=== PATIENT | female | born 1935 | race Caucasian/White ===

== ENCOUNTER 2016-11-23 16:53 | Inpatient (IN) ==
--- NOTE | 2016-11-23 17:48 | Emergency Department Note ---
Disposition Clinical Impression: Fracture of femur Qualifiers: Encounter type: initial encounter Femur location: neck Fracture type: closed Laterality: left Qualified Code(s): S72.002A - Fracture of unspecified part of neck of left femur, initial encounter for closed fracture Anemia Qualifiers: Anemia type: unspecified type Qualified Code(s): D64.9 - Anemia, unspecified GI bleed Qualifiers: GI bleed type/associated pathology: unspecified gastrointestinal hemorrhage type Qualified Code(s): K92.2 - Gastrointestinal hemorrhage, unspecified Disposition: Admitted As Inpatient Condition: Good Time of Disposition: 20:48 General Adult HPI - General Chief complaint: ED Extremity Injury, Lower Stated complaint: Hip Fracture Time Seen by Provider: 11/23/16 17:09 Source: family (DAUGHTER, POA), EMS Mode of arrival: EMS Limitations: no limitations Nursing Notes Reviewed: Yes Vital Signs Reviewed: Yes - History of Present Illness HPI Narrative: 80-year-old female history of Vulvar cancer s/p radiation (finished in Sep 2015 at [facility]), hypertension, diabetes, atrial fibrillation on coumadin presents to the ED with left hip fracture. She is a hospice patient as of 3 weeks ago, resides in a fdc. Her daughter is at bedside who is her POA. Patient reportedly fell in the afternoon yesterday. She denies hitting her head and denies any loss of consciousness however she cannot recall the entire event to me. She was helped up by nursing staff and was imaged earlier today at 8 o' clock review of the left hip fracture in the inter trochanteric region. Patient has required more oxycodone than usual for her pain. She reportedly is acting more confused than usual family reports. Alert and oriented to only person. Denies any other physical complaints. Pain Scale: 7 - Related Data Previous Rx's Medication Instructions Recorded Meclizine [Antivert] 12.5 mg PO TID #20 tablet 10/12/15 Allergies Allergy/AdvReac Type Severity Reaction Status Date / Time nifedipine [From Procardia] Allergy See Verified 07/14/16 10:44 Comments All systems ED: reviewed and negative except as stated. Constitutional: Denies: fever, chills Cardiovascular: Denies: chest pain Respiratory: Denies: dyspnea Gastrointestinal: Denies: abdominal pain Genitourinary: Denies: urgency, dysuria Integumentary: Denies: rash, abrasion Past Medical History - Past Medical History Attestation: Yes The following information was validated with the patient. Source: patient Medical history: Reports: CHF, COPD, dementia, diabetes, hyperlipidemia, hypertension Psychiatric history: Reports: no psych history - Social History Smoking Status: Former smoker Smokeless Tobacco Status: No Alcohol use: Reports: none Drug use: Reports: none Physical Exam - General Limitations: no limitations General appearance: alert, in no apparent distress - Head Head exam: atraumatic, normocephalic, normal inspection - Expanded Head Exam Head exam physicial: Absent: contusion, hematoma - Chest Chest inspection: Present: normal inspection, symmetric chest wall rise - Respiratory Respiratory exam: Present: normal lung sounds bilaterally. Absent: respiratory distress, wheezes - Cardiovascular Cardiovascular exam: Present: regular rate, irregular rhythm, normal heart sounds. Absent: systolic murmur, diastolic murmur - Abdominal Exam Abdominal exam: Present: soft, Non-Tender, normal bowel sounds. Absent: tenderness, distention, guarding, rebound, rigidity - Rectal Exam Lead Injection Mold Technician present during exam: Yes Rectal exam: Present: normal rectal tone, heme (+) stool, bloody stool, other ( rectal exam performed frogged legged due to comfort, no visual inspection) - Expanded Lower Extremity Exam Hip/Pelvis exam: Present: tenderness (Left hip), internal rotation. Absent: normal inspection, full ROM, swelling, deformity, dislocation Upper leg exam: Present: normal inspection, full ROM. Absent: tenderness, swelling Knee exam: Present: normal inspection, other (Limited range of motion). Absent : full ROM, tenderness, swelling Lower leg exam: Present: normal inspection, full ROM. Absent: tenderness, swelling Ankle exam: Present: normal inspection, full ROM Foot/toe exam: Present: normal inspection, full ROM Neurovascular/Tendon exam: Present: normal capillary refill. Absent: pulse deficit, motor deficit, sensory deficit, tendon deficit - Neurological Exam Neurological exam: Present: alert, oriented X3, CN II-XII intact - Expanded Neurological Exam Patient oriented to: Present: person. Absent: place ([facility]), time ( Unable to guess year or day, Objodi is president) Speech: Present: fluid speech Cranial nerves: EOM function (II, III, IV, ): Normal, facial sensation (V): Normal, facial palsy (VII): Normal, gag reflex (IX): Normal, spinal accessory function (XI): Normal, tongue deviation (XII): Normal Motor strength - LUE: 5/5 Motor strength - RUE: 5/5 Motor strength - LLE: 3/5 (Difficult to assess due to pain) Motor strength - RLE: 4/5 Upper motor neuron exam: rolando neglect: Absent bilaterally Sensory exam upper extremity: light touch: Normal Sensory exam lower extremity: light touch: Normal - Psychiatric Psychiatric exam: Present: normal affect, normal mood - Skin Skin exam: Present: warm, dry, intact, normal color Course Course Narrative: 80-year-old female fdc resident currently on hospice presents to the ED with a left hip fracture and confusion. Patiently reportedly fell last night at her fdc residents complain of left hip pain. She was imaged earlier today which revealed a left intertrochanteric hip fracture. She is also on Coumadin for atrial fibrillation. Patients only alert and oriented to person. This appears near baseline per family. Her left leg is internally rotated with tenderness at the hip. She is neurovascularly intact. Daughter who is the POA would like to weigh their options on possible surgery and have her further evaluated. Due to her altered mental status will get a CT of the head basic labs including urine. We will get images of the pelvis and left femur for any occult fractures due to limited exam. Her blood pressure is 100/ 60. Fentanyl for pain. Patient and family are in agreement with plan. - Reevaluation(s) Reevaluation #1: CT head does not reveal any hemorrhagic stroke. She has an acute nondisplaced intratrochanteric left femoral neck fracture with suspected subtrochanteric extension. Her hemoglobin is lower than baseline at 9.4. Unfortunately at this time hospital phones are not working. Awaiting orthopedic surgeon machine precision etcher for consult. Time: 19:57 Reevaluation #2: Her daughter Shara is the POA and is in agreement with the plan for admission. Will admit for pain control and left femoral neck fracture. Time: 20:35 Reevaluation #3: Stool was brown with blood, it was not hematochezia. Hemoccult test will likely be positive. Type and screen pending and fluids ordered. Impression is left femoral neck femoral and GI bleed anemia. Time: 21:10 - Consultations Consultation #1: Spoke with Dr. Cordoba, he reports in a normal ambulatory patient this is a surgical procedure, with her hospice and DNRCCA it is not so clear cut. He agrees that we should admit and discuss her options and manage her pain currently as medical as surgery would not change her prognostic outcome but certainly will aide in comfort care. Time: 20:16 Consultation #2: Spoke with on-call hospitalist randal Avila to admit for left femoral neck fracture. Requests a type and screen and hemoccult test. Time: 20:51 Vital Signs Temperature 99.2 F 11/23/16 16:56 Pulse Rate 67 11/23/16 16:56 Respiratory Rate 16 11/23/16 16:56 Blood Pressure 105/68 11/23/16 16:56 O2 Sat by Pulse Oximetry 99 11/23/16 16:56 Temperature 99.2 F 11/23/16 16:56 Pulse Rate 83 11/23/16 19:01 Respiratory Rate 18 11/23/16 19:01 Blood Pressure 98/59 11/23/16 19:01 O2 Sat by Pulse Oximetry 98 11/23/16 19:01 Oxygen Delivery Oxygen Delivery Room Air Medical Decision Making - Medical Records Medical records reviewed: Yes I reviewed the patient's medical records. - Lab Data Lab results reviewed: Yes I reviewed the patient's lab results. Result diagrams: 11/23/16 18:45 11/23/16 18:45 Lab Results 11/23/16 11/23/16 11/23/16 Range/Units 18:45 18:45 18:45 WBC 8.1 (4.3-11.1) K/mcL RBC 3.20 L (3.82-4.97) M/mcL Hgb 9.4 L (11.5-15.4) g/dL Hct 30.5 L (35.3-44.9) % MCV 95.3 (83.0-100.0) fL MCH 29.4 (28.0-33.3) pg MCHC 30.8 L (31.6-35.5) g/dL RDW 14.8 H (11.5-14.5) % Plt Count 287 (140-400) K/mcL MPV 9.0 L (9.4-12.4) fL Immature Gran % 0.5 (0-4) % Seg Neutrophils % 65.2 % Lymphocytes % 22.4 % Monocytes % 9.4 % Eosinophils % 2.1 % Basophils % 0.4 % Neutrophils # 5.3 (1.6-8.9) K/mcL Lymphocytes # 1.8 (0.6-4.6) K/mcL Monocytes # 0.8 (0.0-1.3) K/mcL Eosinophils # 0.2 (0.0-0.6) K/mcL Basophils # 0.0 (0.0-0.2) K/mcL PT 22.7 H (9.4-12.1) Seconds INR 2.1 APTT 30.6 (26.0-36.0) Seconds Sodium 138 (136-145) mEq/L Potassium 4.1 (3.5-4.5) mEq/L Chloride 102 (98-109) mEq/L Carbon Dioxide 31 H (19-29) mEq/L BUN 15 (7-20) mg/dL Creatinine 0.85 (0.57-1.11) mg/dL Est GFR ( Amer) > 60 (> 60) Est GFR (Non-Af Amer) > 60 (> 60) BUN/Creatinine Ratio 18 (6-26) Glucose 101 H (70-99) mg/dL Calculated Osmolality 287 (280-300) Calcium 8.3 L (8.6-10.8) mg/dL Total Bilirubin 0.5 (0.2-1.2) mg/dL Direct Bilirubin 0.3 (0.0-0.5) mg/dL Indirect Bilirubin 0.2 (0.0-1.2) mg/dL AST 18 (5-34) Units/L ALT 11 (0-55) Units/L Alkaline Phosphatase 77 (38-126) Units/L Troponin I (0-0.03) ng/mL Serum Total Protein 6.2 (6.0-8.3) g/dL Albumin 1.8 L (3.5-5.0) g/dL Globulin 4.4 H (2.4-3.5) g/dL Albumin/Globulin Ratio 0.4 L (1.1-2.2) Stool Occult Blood (Negative) 11/23/16 11/23/16 Range/Units 18:45 18:45 WBC (4.3-11.1) K/mcL RBC (3.82-4.97) M/mcL Hgb (11.5-15.4) g/dL Hct (35.3-44.9) % MCV (83.0-100.0) fL MCH (28.0-33.3) pg MCHC (31.6-35.5) g/dL RDW (11.5-14.5) % Plt Count (140-400) K/mcL MPV (9.4-12.4) fL Immature Gran % (0-4) % Seg Neutrophils % % Lymphocytes % % Monocytes % % Eosinophils % % Basophils % % Neutrophils # (1.6-8.9) K/mcL Lymphocytes # (0.6-4.6) K/mcL Monocytes # (0.0-1.3) K/mcL Eosinophils # (0.0-0.6) K/mcL Basophils # (0.0-0.2) K/mcL PT (9.4-12.1) Seconds INR APTT (26.0-36.0) Seconds Sodium (136-145) mEq/L Potassium (3.5-4.5) mEq/L Chloride (98-109) mEq/L Carbon Dioxide (19-29) mEq/L BUN (7-20) mg/dL Creatinine (0.57-1.11) mg/dL Est GFR ( Amer) (> 60) Est GFR (Non-Af Amer) (> 60) BUN/Creatinine Ratio (6-26) Glucose (70-99) mg/dL Calculated Osmolality (280-300) Calcium (8.6-10.8) mg/dL Total Bilirubin (0.2-1.2) mg/dL Direct Bilirubin (0.0-0.5) mg/dL Indirect Bilirubin (0.0-1.2) mg/dL AST (5-34) Units/L ALT (0-55) Units/L Alkaline Phosphatase (38-126) Units/L Troponin I 0.03 (0-0.03) ng/mL Serum Total Protein (6.0-8.3) g/dL Albumin (3.5-5.0) g/dL Globulin (2.4-3.5) g/dL Albumin/Globulin Ratio (1.1-2.2) Stool Occult Blood Positive A (Negative) - Radiology Data Radiology results reviewed: Yes I reviewed the patient's radiology results. Chest X-Ray 11/23/16 17:42 IMPRESSION: 1. Cardiomegaly and pulmonary venous congestion. D/ / Christian Hill MD / Christian Hill MD Interpreting Provider: Christian Hill MD Head CT 11/23/16 17:42 IMPRESSION: 1. No acute intracranial abnormality. 2. Stable diffuse parenchymal volume loss with moderate to severe chronic white matter microvascular ischemic changes. D/ / Jim Ball MD / Jim Ball MD Interpreting Provider: Jim Ball MD Femur X-Ray 11/23/16 17:43 IMPRESSION: 1. Acute nondisplaced intratrochanteric left femoral neck fracture with suspected subtrochanteric extension. 2. Osteopenia. D/ / Jim Ball MD / Jim Ball MD Interpreting Provider: Jim Ball MD Pelvis X-Ray 11/23/16 17:43 IMPRESSION: Mildly displaced left intratrochanteric fracture is likely present, although evaluation is limited by single view. A moderately displaced fragment is seen along the left lesser trochanter. Ill-defined lucency through the medial aspect of the left inferior pubic ramus. Consider further evaluation with CT to exclude fracture. D/ / 11/23/2016 18:29:58 Reji Ag MD / Светлана Gresham Interpreting Provider: Reji Ag MD - EKG Data EKG #1 EKG attestation: Yes I reviewed and interpreted this EKG. EKG results narrative: EKG performed 185 atrial fibrillation 63 bpm, no ST elevations or depressions, there are nonspecific T-wave changes. Compared to old EKG 10/12/2015 which appears similar and read as sinus bradycardia with first-degree AV block. Otherwise there are no acute ischemic changes.
[2016-11-23] MEDS ORDERED: *HR* FentaNYL (PF) 100 MCG/2 ML VIAL IVP ONE (17:50)
--- NOTE | 2016-11-23 18:11 | Emergency Department Note ---
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 80 yo female presnts with possible hip fracture. ON coumadin for Afib. DNR CCA. Unwitnessed fall yesterday. Unable to provide history regarding the symptoms. Daughter present in the ED who is POA. Daughter reports the patient has altered mental status compared to normal. Taking more pain medications than usual over the past couple days. Patient is anemic and had a guaiac positive rectal exam. Patient BP is stable at this time. She has not had further bowel movements. Head CT is negative for acute intracranial hemorrhage. Patient does have a left intertrochanteric hip fracture. Resident spoke with Dr. Cordoba who recommended the patient be admitted to the hospital and he will evaluate for possible surgery in the morning.
[2016-11-23 18:52] LABS: Basophils % 0.4 %; Eosinophils # 0.2 K/mcL (0.0-0.6); Eosinophils % 2.1 %; Hematocrit 30.5 % (35.3-44.9); Hemoglobin 9.4 g/dL (11.5-15.4); Immature Granulocytes % 0.5 % (0-4); Lymphocytes # 1.8 K/mcL (0.6-4.6); Lymphocytes % 22.4 %; Mean Corpuscular HGB Conc 30.8 g/dL (31.6-35.5); Mean Corpuscular Hemoglobin 29.4 pg (28.0-33.3); Mean Corpuscular Volume 95.3 fL (83.0-100.0); Monocytes # 0.8 K/mcL (0.0-1.3); Monocytes % 9.4 %; Neutrophils # 5.3 K/mcL (1.6-8.9); Platelet Count 287 K/mcL (140-400); Red Cell Distribution Width 14.8 % (11.5-14.5); Segmented Neutrophils % 65.2 %
[2016-11-23 18:59] LABS: INR 2.1; Prothrombin Time 22.7 Seconds (9.4-12.1)
[2016-11-23 19:02] LABS: Activated Partial Thrombo Time 30.6 Seconds (26.0-36.0)
[2016-11-23 19:07] LABS: Alanine Aminotransferase 11 Units/L (0-55); Albumin/Globulin Ratio 0.4 (1.1-2.2); Alkaline Phosphatase 77 Units/L (38-126); Aspartate Amino Transferase 18 Units/L (5-34); BUN/Creatinine Ratio 18 (6-26); Bilirubin,Direct 0.3 mg/dL (0.0-0.5); Bilirubin,Indirect 0.2 mg/dL (0.0-1.2); Bilirubin,Total 0.5 mg/dL (0.2-1.2); Blood Urea Nitrogen 15 mg/dL (7-20); Calcium 8.3 mg/dL (8.6-10.8); Carbon Dioxide 31 mEq/L (19-29); Chloride 102 mEq/L (98-109); Globulin 4.4 g/dL (2.4-3.5); Glucose 101 mg/dL (70-99); Osmolality,Calculated 287 (280-300); Potassium 4.1 mEq/L (3.5-4.5); Sodium 138 mEq/L (136-145); Total Protein 6.2 g/dL (6.0-8.3); eGFR For African Americans > 60 (> 60); eGFR For Non-African Americans > 60 (> 60)
[2016-11-23 19:11] LABS: Albumin 1.8 g/dL (3.5-5.0)
[2016-11-23] MEDS ORDERED: 0.9 % Sodium Chloride 1,000 ML IVC ONE (21:10)
[2016-11-23] MEDS ORDERED: Ipratropium/Albuterol Neb 3 ML IH PRN (23:04)
[2016-11-23] MEDS ORDERED: Bisacodyl 10 MG RECTAL SUPPOSITORY RC PRN (23:04)
[2016-11-23] MEDS ORDERED: Dextrose Gel 15 GM PO PRN ×2 (23:11)
[2016-11-23] MEDS ORDERED: Naloxone 0.4 MG/ML INJ IVP PRN (23:11)
[2016-11-23] MEDS ORDERED: D5% in Water 1,000 ML IV PRN (23:11)
[2016-11-23] MEDS ORDERED: Acetaminophen 325 MG TABLET PO PRN (23:11)
[2016-11-23] MEDS ORDERED: 0.9 % Sodium Chloride 1,000 ML IVC SCH (23:15)
--- NOTE | 2016-11-23 23:52 | Internal Med History&Physical ---
Date of Encounter: 11/23/16 Time of Encounter: 23:00 Assessment and Plan (1) Closed intertrochanteric fracture of left femur Current visit: Yes Status: Acute . Qualifiers: Encounter type: initial encounter Qualified Code(s): S72.142A - Displaced intertrochanteric fracture of left femur, initial encounter for closed fracture (2) Chronic anticoagulation Current visit: Yes Status: Chronic . (3) Dementia arising in the senium and presenium Current visit: Yes Status: Chronic . (4) Acute on chronic alteration in mental status Current visit: Yes Status: Acute . (5) Unwitnessed fall Current visit: Yes Status: Acute . (6) Fracture of left inferior pubic ramus Current visit: Yes Status: Acute . Qualifiers: Encounter type: initial encounter Fracture type: closed Qualified Code(s) : S32.592A - Other specified fracture of left pubis, initial encounter for closed fracture (7) Anemia, chronic disease Current visit: Yes Status: Chronic . (8) Positive fecal occult blood test Current visit: Yes Status: Acute . (9) Protein-calorie malnutrition, severe Current visit: Yes Status: Chronic . (10) Cardiomyopathy Current visit: Yes Status: Chronic . Qualifiers: Cardiomyopathy type: unspecified Qualified Code(s): I42.9 - Cardiomyopathy , unspecified (11) Vulvar carcinoma Current visit: Yes Status: Chronic . (12) Chronic atrial fibrillation Current visit: Yes Status: Chronic . (13) HTN (hypertension) Current visit: Yes Status: Chronic . Qualifiers: Hypertension type: essential hypertension Qualified Code(s): I10 - Essential (primary) hypertension (14) HLD (hyperlipidemia) Current visit: Yes Status: Chronic . Qualifiers: Hyperlipidemia type: unspecified Qualified Code(s): E78.5 - Hyperlipidemia , unspecified (15) COPD (chronic obstructive pulmonary disease) Current visit: Yes Status: Chronic . Qualifiers: COPD type: unspecified COPD Qualified Code(s): J44.9 - Chronic obstructive pulmonary disease, unspecified (16) Dependence on continuous supplemental oxygen Current visit: Yes Status: Chronic . (17) BEAR (obstructive sleep apnea) Current visit: Yes Status: Chronic . (18) At risk for accident in home Current visit: Yes Status: Acute . (19) At risk for acid-base imbalance Current visit: Yes Status: Acute . (20) At risk for activity intolerance Current visit: Yes Status: Acute . (21) At risk for acute confusion Current visit: Yes Status: Acute . (22) At risk for acute ischemic cardiac event Current visit: Yes Status: Acute . (23) At risk for alteration in nutrition and elimination Current visit: Yes Status: Acute . (24) Morbid obesity with BMI of 40.0-44.9, adult Current visit: Yes Status: Chronic . (25) UTI (urinary tract infection) Current visit: Yes Status: Acute . Qualifiers: Urinary tract infection type: acute cystitis Hematuria presence: without hematuria Qualified Code(s): N30.00 - Acute cystitis without hematuria (26) Type 2 diabetes mellitus Current visit: Yes Status: Chronic . Qualifiers: Diabetes mellitus complication status: with unspecified complications Diabetes mellitus stone mason insulin use: unspecified stone mason insulin use status Qualified Code(s): E11.8 - Type 2 diabetes mellitus with unspecified complications (27) Hypothyroidism Current visit: Yes Status: Chronic . Qualifiers: Hypothyroidism type: acquired Qualified Code(s): E03.9 - Hypothyroidism, unspecified Internal Medicine - H&P: HPI Chief complaint: Mechanical fall. Acute hip pain. Confusion. Admitted From: Emergency Dept Plans for Post Hospital Care: Transfer Care Home Facility History of present illness: Ms. Hauser is a 80 year old female . She is currently on hospice patient as of 3 weeks and resides in a halfway. She presents following a mechanical fall where she sustained a left hip intratrochanteric fracture. The day prior to presentation. Reportedly fell in the afternoon. She did not suffer any head injury or loss of consciousness. He cannot have recalled the entirety of events. She was helped up by nursing staff and due to persistent complaints of pain in the limb is performed revealing the fracture. She is admitted to [facility] via the emergency department when she presents via EMS services in the company of family. Due to the injury she has required more oxycodone than her usual for management of her cancer-related pain. As a consequence family had found her acting more confused than is her baseline. The patient's history is significant for vulvar carcinoma status post radiation therapy completed at the [facility] at [facility]. Preliminary impressions suggest indeed intratrochanteric fracture of the left hip. The patient is also on chronic anticoagulation with warfarin for atrial fibrillation. Hemoccult stool analysis returned positive at admission. Screening studies revealed a mild anemia with a hemoglobin of 9.4 indices suggesting associated iron deficiency. Lempjvwz-mp-afifwi protein caloric malnutrition with albumin of 1.8 is noted electrolytes are benign except for mild azotemia. Vital signs revealed a low-grade temperature 99.2 and mild hypotension at 98/59 mmHg. Given her frailty, her family members(daughter as POA) site account for weighing of management options. Will be facilitated to their satisfaction. Specialist in orthopedic surgery has been apprised of the patient's circumstances and special needs. Workup and treatment will progress comprehensively. The patient was visited and interviewed and examined. Cumulative laboratory and radiographic data base was considered and discussed. Pertinent ancillary medical records including ECW and PCI documentation was reviewed and considered. Given the patient's presenting concerns, past medical history, clinical findings and symptoms, she is admitted at this time will undergo further evaluation and disposition. Orders were written as per the computerized physician order department supervisor system.......................................................................... .................... Consultative opinions will be sought as clinical circumstances justify. Pain management needs will be addressed. Laboratory and radiographic data base will be updated as appropriate. Studies include: Cultures of blood urine, pt/inr, aptt, UA, cardiac injury panel, BNP, metabolic/ hematologic panel, mag, phos, ionized donna, thyroid/ lipid profile, A1c, C-pep, CRP, sed rate, respiratory infection profile, respiratory virus panel, blood gas, lactic acid, dig level, iron studies, B12, folate, vit D panel , serologies, etc. Precautions: Aspiration, fall, delirium protocol/surveillance initiated. Telemetry with continuous hemodynamic monitoring and pulse oximetry initiated. Orthostatic vital signs. Empiric antibiotic coverage: Intravenous Rocephin pending culture data. Special studies: CT head, femur x-ray, pelvis x-ray, chest x-ray, telemetry, EKG. Pulmonary toilet: Incentive spirometry, aerosol bronchodilator, mucolytic, antitussive, supplemental oxygen. Corticosteroid therapyPRN. CPAP/BiPAP supplemental oxygen deliveryPRN. Aerosol Mucomyst therapyPRN. Fluid and electrolyte repletion efforts will proceed. Careful attention to fluid balance and renal recovery will be emphasized. Avoidance of nephrotoxic exposure and adverse drug drug interaction in the setting of impaired renal function will be monitored closely. Acute coronary syndrome protocol/surveillance initiated. Pharmacy to manage warfarin therapy (goal INR 2-3). DVT and PUD prophylaxis initiated: PPI therapy, intermittent pneumatic cuffs. Early ambulation will be encouraged as circumstances prevent. Immunization updates recommended. Influenza and pneumococcal vaccinations as part of ongoing preventative healthcare recommendations strongly recommended. Smoking cessation counseling addressed. Patient is a former smoker per medical record. Advanced care directive discussion addressed. Patient does declare specific healthcare restrictions of record at this time as per POA. Cardiovascular risk appraisal and cardiovascular risk reduction efforts will be emphasized. Physical and occupational therapy consulted to evaluate patient's functional capacity and progress mobility as her circumstances permit. Sliding scale insulin coverage, ADA dietary restraint and schedule an as-needed basis fingerstick glucose assessments were initiated. Nutrition/diabetes education counseling may be considered as circumstances justify. Outpatient medication schedules will be reviewed, confirmed and facilitated as appropriate. Reconciliation of home treatments including adjustments, substitutions and reintroduction into the treatment regimen will address necessary maintenance therapies for chronic pre-existing medical conditions. Plan of care has been reviewed and discussed in detail with the patient's family /POA. Questions addressed. Hospital course dictated by clinical findings, treatment response and potential consultative interventions. Patient is at risk for further acute clinical decline and morbidity due to her age, presenting chief complaints and comorbid conditions. Condition is serious. Prognosis is guarded. CODE STATUS is DNR comfort care arrest. Past Med Surg Social Fam HX - Past Medical History Source: old records reviewed Medical history: arthritis, atrial fibrillation, cancer, CHF (LVEF 30-40%.), COPD (BEAR. Continuous O2 supplementation.), dementia, diabetes, GERD, GI bleed, hyperlipidemia, hypertension, malignancy (Vulvar Ca s/p radiation tx.), osteoporosis, renal disease, thyroid disease, other (anemia of chronic illness.) Psychiatric history: no psych history, other - Past Surgical History Surgical History: cholecystectomy, hysterectomy, GISSEL/BSO, other (Nephrectomy. Colonoscopy. EGD.) - Social History Smoking Status: Former smoker Smokeless Tobacco Status: No Alcohol use: none Drug use: none Occupational status: retired Current [facility] situation: [facility] Activity Level: Mostly sedentary Recent Out of Country Travel Within the Last 8 Weeks: No Exposure or Possible Exposure to Illness During Travel: No - Family History Mother Living Status: Hx Family Cardiac Disorders: Yes Hx Family Respiratory Disorders: Yes Hx Family Cancer: Yes Hx Family Medical Disorders: Yes Internal Medicine - H&P: Meds Bisacodyl [Dulcolax] 10 mg RC WE 11/23/16 [History] Digoxin [Lanoxin] 0.125 mg PO DAILY 11/23/16 [History] Diltiazem CD (24hr) [Cardizem CD] 180 mg PO DAILY 11/23/16 [History] Docusate [Colace] 100 mg PO BID 11/23/16 [History] Furosemide [Lasix] 80 mg PO DAILY 11/23/16 [History] Insulin Degludec [Tresiba Flextouch U-100] 10 unit SQ DAILY 11/23/16 [History] Insulin Human Regular [HumuLIN R] 2 - 14 unit SQ TID 11/23/16 [History] Ipratropium/Albuterol Neb [Duoneb] 3 ml IH Q6HR PRN 11/23/16 [History] Levothyroxine [Synthroid] 25 mcg PO DAILY 11/23/16 [History] Oxycodone HCl 10 mg PO QID PRN 11/23/16 [History] Pantoprazole Sodium [Protonix] 40 mg PO DAILY 11/23/16 [History] Potassium Chloride [K-Tab ER] 20 meq PO DAILY 11/23/16 [History] Silver Sulfadiazine Cream [Silvadene] 1 appl TP TID 11/23/16 [History] Warfarin [Coumadin] 3 mg PO HS 11/23/16 [History] Allergies nifedipine [From Procardia] Allergy (Verified 07/14/16 10:44) See Comments ROS unobtainable: due to mental status All Systems PM: A 10-system review of systems was performed and is negative for pertinent findings except as documented above in the HPI. The patient presents encephalopathic due to underlying medical condition. She is a non-historian of circumstances and events. Details are collected from medical records, EMS triage, family member/POA at the bedside, and halfway staff. - Constitutional Constitutional: as per HPI - EENT Eyes: as per HPI Ears: as per HPI Nose, mouth and throat: as per HPI - Cardiovascular Cardiovascular ROS IM: as per HPI - Respiratory Respiratory: as per HPI - Gastrointestinal Gastrointestinal: as per HPI - Genitourinary Genitourinary: as per HPI - Musculoskeletal Musculoskeletal ROS IM: as per HPI - Integumentary Integumentary IM: as per HPI - Neurological Neurological ROS: as per HPI - Psychiatric Psychiatric: as per HPI - Endocrine Endocrine IM: as per HPI - Hematologic/Lymphatic Hematologic/Lymphatic: as per HPI - Allergic/Immunologic Allergic/Immunologic: as per HPI - Constitutional Vitals: Temp Pulse Resp BP Pulse Ox 99.2 F 83 18 98/59 98 11/23/16 16:56 11/23/16 19:01 11/23/16 19:01 11/23/16 19:01 11/23/16 19:01 Vital Signs Temp Pulse Resp BP Pulse Ox 11/23/16 19:01 83 18 98/59 98 11/23/16 16:56 99.2 F 67 16 105/68 99 Intake and Output 11/23/16 11/23/16 11/23/16 07:59 15:59 23:59 Other: Weight 117.934 kg Patient Weight 11/23/16 23:59 Weight 117.934 kg Allergies Allergy/AdvReac Type Severity Reaction Status Date / Time nifedipine [From Procardia] Allergy See Verified 07/14/16 10:44 Comments General appearance: Present: A&O X 1, mild distress. Absent: answers questions appropriately - Head Head exam: Present: atraumatic, normocephalic - Eye Eye exam: Present: EOMI, PERRL, conjuntiva pink, sclera anicteric Pupils: Present: normal accommodation, PERRL - ENT ENT exam: Present: mucous membranes moist, normal oropharynx - Neck Neck exam general surgery: Present: full ROM, supple, trachea midline. Absent: lymphadenopathy - Respiratory Respiratory exam: Present: decreased breath sounds, CTAB. Absent: accessory muscle use, rales, rhonchi, wheezes - Cardiovascular Cardiovascular exam: Present: distant heart sounds, RRR, +S1, +S2. Absent: diastolic murmur, gallop, rubs, systolic murmur - GI/Abdominal GI/Abdominal exam: Present: normal bowel sounds, soft, no peritoneal signs. Absent: distended, tenderness - Extremities Exam Extremities exam: Present: full ROM, warm, radial pulses palpable and symetrical. Absent: calf tenderness, cyanotic, pedal edema - Neurological Exam Neurological exam: Present: altered, CN II-XII intact, no focal deficits. Absent: oriented X3, pronater drift, facial droop, speech deficit - Psychiatric Psychiatric exam: Present: agitated, flat affect - Skin Skin exam: Present: dry, intact Internal Med - H&P Results - Labs CBC & Chem 7: 11/24/16 06:13 11/24/16 06:13 Labs: Short CBC 11/23/16 Range/Units 18:45 WBC 8.1 (4.3-11.1) K/mcL Hgb 9.4 L (11.5-15.4) g/dL Hct 30.5 L (35.3-44.9) % Plt Count 287 (140-400) K/mcL Neutrophils # 5.3 (1.6-8.9) K/mcL BMP 11/23/16 Range/Units 18:45 Sodium 138 (136-145) mEq/L Potassium 4.1 (3.5-4.5) mEq/L Chloride 102 (98-109) mEq/L Carbon Dioxide 31 H (19-29) mEq/L BUN 15 (7-20) mg/dL Creatinine 0.85 (0.57-1.11) mg/dL Glucose 101 H (70-99) mg/dL Calcium 8.3 L (8.6-10.8) mg/dL Cardiac Enzymes 11/23/16 Range/Units 18:45 Troponin I 0.03 (0-0.03) ng/mL Liver Function 11/23/16 Range/Units 18:45 Total Bilirubin 0.5 (0.2-1.2) mg/dL Direct Bilirubin 0.3 (0.0-0.5) mg/dL AST 18 (5-34) Units/L ALT 11 (0-55) Units/L Alkaline Phosphatase 77 (38-126) Units/L Albumin 1.8 L (3.5-5.0) g/dL Abnormal lab results RBC 3.20 M/mcL (3.82-4.97) L 11/23/16 18:45 Hgb 9.4 g/dL (11.5-15.4) L 11/23/16 18:45 Hct 30.5 % (35.3-44.9) L 11/23/16 18:45 MCHC 30.8 g/dL (31.6-35.5) L 11/23/16 18:45 RDW 14.8 % (11.5-14.5) H 11/23/16 18:45 MPV 9.0 fL (9.4-12.4) L 11/23/16 18:45 PT 22.7 Seconds (9.4-12.1) H 11/23/16 18:45 Carbon Dioxide 31 mEq/L (19-29) H 11/23/16 18:45 Glucose 101 mg/dL (70-99) H 11/23/16 18:45 Calcium 8.3 mg/dL (8.6-10.8) L 11/23/16 18:45 Albumin 1.8 g/dL (3.5-5.0) L 11/23/16 18:45 Globulin 4.4 g/dL (2.4-3.5) H 11/23/16 18:45 Albumin/Globulin Ratio 0.4 (1.1-2.2) L 11/23/16 18:45 Stool Occult Blood Positive (Negative) A 11/23/16 18:45 Laboratory Last Values WBC 8.1 K/mcL (4.3-11.1) 11/23/16 18:45 RBC 3.20 M/mcL (3.82-4.97) L 11/23/16 18:45 Hgb 9.4 g/dL (11.5-15.4) L 11/23/16 18:45 Hct 30.5 % (35.3-44.9) L 11/23/16 18:45 MCV 95.3 fL (83.0-100.0) 11/23/16 18:45 MCH 29.4 pg (28.0-33.3) 11/23/16 18:45 MCHC 30.8 g/dL (31.6-35.5) L 11/23/16 18:45 RDW 14.8 % (11.5-14.5) H 11/23/16 18:45 Plt Count 287 K/mcL (140-400) 11/23/16 18:45 MPV 9.0 fL (9.4-12.4) L 11/23/16 18:45 Immature Gran % 0.5 % (0-4) 11/23/16 18:45 Seg Neutrophils % 65.2 % 11/23/16 18:45 Lymphocytes % 22.4 % 11/23/16 18:45 Monocytes % 9.4 % 11/23/16 18:45 Eosinophils % 2.1 % 11/23/16 18:45 Basophils % 0.4 % 11/23/16 18:45 Neutrophils # 5.3 K/mcL (1.6-8.9) 11/23/16 18:45 Lymphocytes # 1.8 K/mcL (0.6-4.6) 11/23/16 18:45 Monocytes # 0.8 K/mcL (0.0-1.3) 11/23/16 18:45 Eosinophils # 0.2 K/mcL (0.0-0.6) 11/23/16 18:45 Basophils # 0.0 K/mcL (0.0-0.2) 11/23/16 18:45 PT 22.7 Seconds (9.4-12.1) H 11/23/16 18:45 INR 2.1 11/23/16 18:45 APTT 30.6 Seconds (26.0-36.0) 11/23/16 18:45 Sodium 138 mEq/L (136-145) 11/23/16 18:45 Potassium 4.1 mEq/L (3.5-4.5) 11/23/16 18:45 Chloride 102 mEq/L (98-109) 11/23/16 18:45 Carbon Dioxide 31 mEq/L (19-29) H 11/23/16 18:45 BUN 15 mg/dL (7-20) 11/23/16 18:45 Creatinine 0.85 mg/dL (0.57-1.11) 11/23/16 18:45 Est GFR ( Amer) > 60 (> 60) 11/23/16 18:45 Est GFR (Non-Af Amer) > 60 (> 60) 11/23/16 18:45 BUN/Creatinine Ratio 18 (6-26) 11/23/16 18:45 Glucose 101 mg/dL (70-99) H 11/23/16 18:45 Calculated Osmolality 287 (280-300) 11/23/16 18:45 Calcium 8.3 mg/dL (8.6-10.8) L 11/23/16 18:45 Total Bilirubin 0.5 mg/dL (0.2-1.2) 11/23/16 18:45 Direct Bilirubin 0.3 mg/dL (0.0-0.5) 11/23/16 18:45 Indirect Bilirubin 0.2 mg/dL (0.0-1.2) 11/23/16 18:45 AST 18 Units/L (5-34) 11/23/16 18:45 ALT 11 Units/L (0-55) 11/23/16 18:45 Alkaline Phosphatase 77 Units/L (38-126) 11/23/16 18:45 Troponin I 0.03 ng/mL (0-0.03) 11/23/16 18:45 Serum Total Protein 6.2 g/dL (6.0-8.3) 11/23/16 18:45 Albumin 1.8 g/dL (3.5-5.0) L 11/23/16 18:45 Globulin 4.4 g/dL (2.4-3.5) H 11/23/16 18:45 Albumin/Globulin Ratio 0.4 (1.1-2.2) L 11/23/16 18:45 Stool Occult Blood Positive (Negative) A 11/23/16 18:45 Blood Type A POSITIVE 11/23/16 18:45 Antibody Screen NEGATIVE 11/23/16 18:45 - Impressions Chest X-Ray 11/23/16 17:42 IMPRESSION: 1. Cardiomegaly and pulmonary venous congestion. D/ / Christian Hill MD / Christian Hill MD Interpreting Provider: Christian Hill MD Head CT 11/23/16 17:42 IMPRESSION: 1. No acute intracranial abnormality. 2. Stable diffuse parenchymal volume loss with moderate to severe chronic white matter microvascular ischemic changes. D/ / Jim Ball MD / Jim Ball MD Interpreting Provider: Jim Ball MD Femur X-Ray 11/23/16 17:43 IMPRESSION: 1. Acute nondisplaced intratrochanteric left femoral neck fracture with suspected subtrochanteric extension. 2. Osteopenia. D/ / Jim Ball MD / Jim Ball MD Interpreting Provider: Jim Ball MD Pelvis X-Ray 11/23/16 17:43 IMPRESSION: Mildly displaced left intratrochanteric fracture is likely present, although evaluation is limited by single view. A moderately displaced fragment is seen along the left lesser trochanter. Ill-defined lucency through the medial aspect of the left inferior pubic ramus. Consider further evaluation with CT to exclude fracture. D/ / 11/23/2016 18:29:58 Reji Ag MD / Севтлана Gresham Interpreting Provider: Reji Ag MD - Attending Attestation My signature below is to certify that this patient is under my care and that I, or nurse practitioner, or a physician's legal document assistant, or resident physician working with me, has had a [id number] encounter with this patient. All Active Problems (Last Updated 11/23/16 @ 21:42 by Jim Anton DO) Anemia (Acute) Fracture of femur (Acute) GI bleed (Acute) ED Activity Last Name: Murtaza Status: Admitted Observation Patient First Name: Danuta Priority: 3 Middle: Condition: Good Birthdate: 1935 Arrival Date/Time: 11/23/16 16:53 Age at Arrival: 80 Arrival Mode: Walk-In Sex: F Triaged At: 11/23/16 16:56 Language: Qatari Time Seen by Provider: 11/23/16 17:09 Stated Complaint: Hip Fracture Chief Complaint: ED Extremity Injury, Lower ED Location: [facility] ED Area: Station: Group: N ED Provider: Al Del Rosario ED Midlevel Provider: Jim Anton ED Nurse: Frieda David Primary Care Provider: Al Gonzales Other Provider: Parker Cordoba Status/Phase DtTm/Value User/Action Admitted Observation Patient 11/23/16 20:57:24 Daemon,Background Referrals (Provider) Al Gonzales Deleted 11/23/16 20:57:22 Ahsan Mcmanus Attending Provider Myranda Matos New Admitting Provider Natalya Quintero w/ Radiology 11/23/16 18:54:21 Jim Anton Referrals (Provider) Al Gonzales Added 11/23/16 18:17:19 Eran Stevens Primary Care Provider Al Gonzales Edit 11/23/16 18:10:01 Eran Stevens Primary Care Provider PCP NO New In Room 11/23/16 17:15:18 Frieda David Ed Nurse Frieda David New With Doctor 11/23/16 17:13:34 Al Del Rosario Ed Provider Al Del Rosario New With Midlevel 11/23/16 17:09:38 Jim Anton Midlevel Provider Jim Anton New In Room 11/23/16 16:53:36 Raul Hawkins Chief Complaint ED Extremity Injury, Lower New Stated Complaint Hip Fracture New Assessments and Treatments 12 lead ECG assessment Start: 11/23/16 17: 42 Freq: NOW Status: Complete Document 11/23/16 19:00 [facility] (Rec: 11/23/16 19:00 [id number]) EKG Time EKG Completed 18:59 EKG performed by EL Sloan EKG shown to and signed by Dr. Del Rosario Cardiac monitoring Start: 11/23/16 17: 42 Freq: .ONCE Status: Complete Document 11/23/16 19:01 [facility] (Rec: 11/23/16 19:01 [id number]) Cardiac Monitoring Heart Rate 79 Monitoring Method Telemetry Rhythm Sinus Rhythm Monitor Number ed 9 Strip placed in Chart No Monitor History Reviewed Yes Memory Cleared Yes ED Lower Extremity Injury Assessment Start: 11/23/16 16: 54 Freq: Status: Complete Document 11/23/16 16:59 JDA (Rec: 11/23/16 17:05 JDA [id number]) Extremity Injury, Lower Symptoms/Complaint Hip Injury Onset last night. Place Injury Occurred Long-Term/SNF Context Fall Improves With Nothing Worsens With Nothing Level Of Consciousness Awake Alert Appropriate Follows Commands Patient Orientation Person Place Time Patient Behavior Appropriate Ability to Follow Directions Fair Impaired Cognition Yes Respiratory Depth Normal ED Comment Pt presents from [facility] with C/O hip fracture post fall last night . Pt is on coumadin. Pt denies LOC with fall. ED Pain Assessment Start: 11/23/16 16: 54 Freq: Status: Active Document 11/23/16 19:02 [facility] (Rec: 11/23/16 19:03 [id number] Pain Assessment Left Hip Pain Description Ache Dull Intensity 10 Scale Used Numeric (1 - 10) Frequency Constant Indication of Pain Relief Verbalizes No Change in Pain Med Rec Tech Start: 11/23/16 22: 47 Freq: Status: Active Document 11/23/16 22:47 [facility] (Rec: 11/23/16 22:47 [facility] [id number]) Pharmacy Med Rec Tech Home Medicatons Reconciled? Yes Was this to catch up from previous day No Does patient take 10 or more medications Yes ? Does patient request medication No education Do home meds include Coumadin, Xarelto, Yes Pradaxa, Eliquis Added Patient Preferred Pharmacy Yes Verified Allergies Yes Would Patient Like to use [facility] No Patient Pharmacy NPO (Nursing Order) Start: 11/23/16 17: 42 Freq: NOW Status: Complete Document 11/23/16 19:01 [facility] (Rec: 11/23/16 19:01 [id number] Patient Rounding Start: 11/23/16 16: 54 Freq: Q30M Status: Active Document 11/23/16 16:59 JDA (Rec: 11/23/16 17:05 JDA [id number]) Patient Rounding Safety Call Light Within Reach Bed Position Low Bed Brake On Side Rails Up X2 Rounding Completed? Yes Patient Rounding Updated patient/family on Plan of Care Checked for Patient Positioning Patient Awake Document 11/23/16 19:01 [facility] (Rec: 11/23/16 19:02 [id number] Patient Rounding Safety Call Light Within Reach Bed Position Low Bed Brake On Side Rails Up X2 Are the Floors Free From Trip Hazards? Yes Is the Room Free From Clutter? Yes Rounding Completed? Yes Patient Rounding Updated patient/family on Plan of Care Checked Patient Pain Level Patient Awake Document 11/23/16 21:47 WDT (Rec: 11/23/16 21:48 WDT [id number]) Patient Rounding Safety Call Light Within Reach Bed Position Low Bed Brake On Side Rails Up X2 Are the Floors Free From Trip Hazards? Yes Is the Room Free From Clutter? Yes Patient Position Back Head of Bed Position (degrees) 35 Rounding Completed? Yes Patient Rounding Updated patient/family on Plan of Care Checked Patient Pain Level Patient Awake Patient Verbalizes Pain/Symptoms No Improvement Saline lock insertion/management Start: 11/23/16 17: 42 Freq: .ONCE Status: Active Document 11/23/16 19:08 JDA (Rec: 11/23/16 19:08 JDA [id number]) IV Insertion/Site Assessment IV Attempt 1 Successful Successful Blood drawn and sent to Lab No Left Hand Date of Insertion 11/23/16 Time of Insertion 19:08 Reason for IV Insertion Replace Lost Fluids Provide Access for IV Medication(s) Provide Access for Emergency IV Catheter Type Peripheral IV Gauge (gauge) 20 Site Observation Patent Dressing Applied Window Dressing Transparent Dressing Patient Tolerance Tolerated Well Triage Start: 11/23/16 16: 54 Freq: Status: Complete Document 11/23/16 16:56 JDA (Rec: 11/23/16 16:59 JDA [id number]) Triage Chief Complaint triage ED Extremity Injury, Lower Patient Stated Complaint Left hip fracture. KATELYNN 3 Onset (ago) day(s) Description of Symptoms Pt presents with C/O hip fracture to LLE that happened last night when pt fell. General Appearance in no apparent distress Work Related Injury? No Mode of arrival EMS Arrival via EMS [facility] Source EMS Ebola Risk: Travel/Contact With Anyone No From Affected Area/s Temperature (97.6 F-99.6 F) 99.2 F Temperature Source Oral Pulse Rate (beats/min) 67 Respiratory Rate (breaths/min) 16 Blood Pressure (mm Hg) 105/68 O2 Sat by Pulse Oximetry (95-100 %) 99 Oxygen Delivery Room Air Height 1.68 m Weight 117.934 kg Weight Measurement Method Estimated by Patient Pain Scale 7 Pain Scale Used Standard (1-10) Medical history CHF COPD dementia diabetes hyperlipidemia hypertension Female surgical history cholecystectomy hysterectomy other Additional surgical history PMH NEPHRECTOMY Psychiatric history no psych history Smoking Status Former smoker Smokeless Tobacco Status No Alcohol Use none Drug Use none Patient resides with/at [facility] Safety Concerns Feels Safe At This Time Do you currently feel hopless, have No thoughts of self harm, or thoughts of harming others History of fall in last 14 days? No Hx Now No Tetanus UTD unsure Vital Signs Assessment Start: 11/23/16 17: 42 Freq: PROTOCOL Status: Active Document 11/23/16 19:01 [facility] (Rec: 11/23/16 19:02 [facility] [id number]) ED Vital Signs Pain Reported Pain Reported Pain Scale 8 Pain Scale Used Standard (1-10) Blood Pressure (mm Hg) 98/59 Pulse Rate (beats/min) 83 Rhythm Regular Strength Normal Respiratory Rate (breaths/min) 18 Depth Normal Effort Normal for Patient Spontaneous Non-Labored Pattern Regular Pulse Oximetry (95-100 %) 98 Oxygen Delivery Room Air Discharge ED Provider: Al Del Rosario Status: Admitted Observation Patient Time Seen by Provider: 11/23/16 17:09 Condition: Good Triaged At: 11/23/16 16:56 Other ED Providers: Parker Cordoba Emergency Discharge Date/Time: Emergency Discharge Disposition: Admitted As Inpatient Clinical Impression Fracture of femur Anemia GI bleed Emergency Discharge Comment: Admit Intervention Last Done ED Lower Extremity Injury Assessment 11/23/16 16:59 Query Result Lower Extremity Injury Symptoms/ Hip Injury Complaint Lower Extremity Injury Onset last night. Place Fall Occurred Long-Term/SNF Lower Extremity Injury Context Fall Lower Extremity Injury Improves With Nothing Lower Extremity Injury Worsens With Nothing Level Of Consciousness Awake Alert Appropriate Follows Commands Patient Orientation Person Place Time Patient Behavior Appropriate Ability to Follow Directions Fair Impaired Cognition Yes Respiratory Depth Normal ED Comment Pt presents from [facility] with C/O hip fracture post fall last night . Pt is on coumadin. Pt denies LOC with fall. ED Discharge Assessment Observation Discharge Date/Time: Observation Discharge Disposition: Observation Discharge Comment: Instructions: Stand-Alone Forms: Prescriptions: Visit Report - Forms: - Referrals: Patient Problems (Last Updated 11/23/16 @ 21:42 by Jim Anton DO) Anemia (Acute Medical) D64.9 Fracture of femur (Acute Medical) S72.90XA GI bleed (Acute Medical) K92.2 Headache (Inactive Medical) Vaginal mass (Inactive Medical) N89.9 Vertigo (Inactive Medical)
[2016-11-24 04:41] LABS: Bilirubin,Urine Negative (Negative); Blood,Urine Trace (Negative); Clarity,Urine Cloudy (Clear); Color,Urine Yellow (Yellow); Glucose,Urine (UA) Normal (Normal); Ketones,Urine Negative (Negative); Leukocyte Esterase,Urine Large (Negative); Nitrite,Urine Positive (Negative); PH,Urine 6.5 pH Units (5.0-8.0); Protein,Urine Trace mg/dL (Neg-Trace); Urobilinogen,Urine Normal (Normal)
[2016-11-24 04:44] LABS: Bacteria,Urine Many per hpf (None-Few); Hyaline Casts,Urine None Seen per lpf (None-Few); Squamous Epithelial Cell,Urine Many per lpf (None-Few); WBC,Urine TNTC per hpf (0-3)
[2016-11-24 05:11] LABS: Hemoglobin A1C 4.7 %
[2016-11-24 06:47] LABS: Hematocrit 28.3 % (35.3-44.9); Hemoglobin 8.4 g/dL (11.5-15.4); Mean Corpuscular HGB Conc 29.7 g/dL (31.6-35.5); Mean Corpuscular Hemoglobin 28.2 pg (28.0-33.3); Mean Platelet Volume 9.3 fL (9.4-12.4); Platelet Count 245 K/mcL (140-400); Red Blood Count 2.98 M/mcL (3.82-4.97); Red Cell Distribution Width 14.7 % (11.5-14.5)
[2016-11-24 06:51] LABS: INR 1.8; Prothrombin Time 19.5 Seconds (9.4-12.1)
[2016-11-24 07:03] LABS: BUN/Creatinine Ratio 20 (6-26); Blood Urea Nitrogen 16 mg/dL (7-20); Carbon Dioxide 30 mEq/L (19-29); Chloride 103 mEq/L (98-109); Chol/HDL Ratio 2.6 (0-4.9); Cholesterol 90 mg/dL (< 200); Glucose 77 mg/dL (70-99); HDL Cholesterol 35 mg/dL (40-59); LDL Cholesterol,Calculated 38 mg/dL (0-99); Magnesium 1.4 mg/dL (1.6-2.6); Osmolality,Calculated 290 (280-300); Phosphorous 2.9 mg/dL (2.3-4.7); Potassium 3.6 mEq/L (3.5-4.5); Sodium 140 mEq/L (136-145); Triglycerides 87 mg/dL (< 150); eGFR For African Americans > 60 (> 60); eGFR For Non-African Americans > 60 (> 60)
[2016-11-24 07:19] LABS: Digoxin 1.4 ng/mL (0.8-2.0); Thyroid Stimulating Hormone 1.906 mcIU/mL (0.350-4.840)
[2016-11-24] MEDS: Insulin LISPRO 300 UNITS/3 ML VIAL SQ SCH ×4 (08:24→21:58)
[2016-11-24] MEDS: Levothyroxine 25 MCG TABLET PO SCH (08:27)
[2016-11-24] MEDS: *HR* Digoxin 0.125 MG TABLET PO SCH (08:27)
[2016-11-24] MEDS: Diltiazem CD (24hr) 180 MG CAPSULE PO SCH (08:27)
[2016-11-24] MEDS: Silver Sulfadiazine 50 GM TUBE TP SCH ×3 (08:28→22:07)
[2016-11-24] MEDS: *HR* HYDROmorphone (PF) 1 MG/ML SYRINGE IVP PRN ×3 (10:04→22:22)
[2016-11-24] MEDS: Ondansetron 4 MG/2 ML VIAL IVP PRN (13:02)
[2016-11-24] MEDS: 0.9 % Sodium Chloride 1,000 ML IVC SCH ×3 (13:07→17:15)
[2016-11-24] MEDS: *HR* OxyCODONE Immed Rel 5 MG TABLET PO PRN ×2 (14:11→18:38)
--- NOTE | 2016-11-24 15:54 | Internal Med Progress Note ---
Date of Encounter: 11/24/16 Time of Encounter: 15:52 - Assessment and plan (1) Chronic atrial fibrillation Current Visit: Yes Status: Acute Assessment and plan: She is currently anticoagulation. What I will do is get her anticoagulation reversed with a dose of vitamin K. I will anticipate that her INR should be below 1.5 tomorrow. 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 Not getting hip fracture might be quite painful. I will defer on the final pedicle on this to the surgeon. I did explain the prolonged immobilization as some of its issues and one of them is decubitus issues. She oriented some breakdown on the bottom because of radiation changes from her vulvar cancer. Qualifiers: Encounter type: initial encounter Femur location: neck Fracture type: closed Laterality: left Qualified Code(s): S72.002A - Fracture of unspecified part of neck of left femur, initial encounter for closed fracture - Subjective Interval history: Pain medication has been effective for controlling her pain. Daughter asked me my recommendations in regards to hip fracture. Despite that she is following a palliative care plan I told her that trying to manage an elderly lady of her size without fixing a hip would be very difficult if not near impossible. I also have the opinion that exam fractured hip of this nature goes long way to controlling pain and being palliative in its own way. - Constitutional Vitals: Temp Pulse Resp BP Pulse Ox 98.7 F 69 16 103/61 98 11/24/16 15:12 11/24/16 15:12 11/24/16 15:12 11/24/16 15:12 11/24/16 15:12 General appearance: Present: A&O X 1. Absent: answers questions appropriately - Respiratory Respiratory exam: Present: CTAB - Cardiovascular Cardiovascular exam: Present: irregular rhythm Internal Medicine: Result - Labs CBC & Chem 7: 11/24/16 06:13 11/24/16 06:13 Labs: Short CBC 11/24/16 Range/Units 06:13 WBC 6.5 (4.3-11.1) K/mcL Hgb 8.4 L (11.5-15.4) g/dL Hct 28.3 L (35.3-44.9) % Plt Count 245 (140-400) K/mcL BMP 11/24/16 06:13 Sodium 140 Potassium 3.6 Chloride 103 Carbon Dioxide 30 H BUN 16 Creatinine 0.81 Glucose 77 Calcium 8.0 L Urine 11/24/16 Range/Units 04:20 Urine Color Yellow (Yellow) Urine Clarity Cloudy A (Clear) Urine pH 6.5 (5.0-8.0) pH Units Ur Specific [place] 1.020 (1.010-1.025) Urine Protein Trace (Neg-Trace) mg/dL Urine Glucose (UA) Normal (Normal) mg/dL - ABG Interpretation ABG results: PT/INR, D-dimer PT 19.5 Seconds (9.4-12.1) H 11/24/16 06:13 Consult Discharge Plan - Plan Referrals: Al Gonzales MD [Primary Care Provider] -
[2016-11-24] MEDS ORDERED: *HR* Phytonadione 5 MG TABLET PO ONE (16:01)
--- NOTE | 2016-11-24 16:07 | Electrocardiograph Report ---
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
[2016-11-24] MEDS ORDERED: *HR* Warfarin 3 MG TABLET PO SCH (18:00)
[2016-11-24] MEDS ORDERED: Warfarin perPT PO PRN (18:00)
--- NOTE | 2016-11-24 20:35 | Orthopedic Consult Note ---
Date of Encounter: 11/24/16 Time of Encounter: 20:25 History of Present Illness Chief complaint: Left hip pain HPI: Ms. Hauser is a 80 year old female who sustained a left hip injury in a fall at a nursing facility approximately 48 hours ago. Patient has a significant medical history that is well documented in the medical record. In essence the patient has a vulvar carcinoma that has been treated with radiation with secondary radiation leon limiting treatment as well as one course of chemotherapy which has also been poorly tolerated. Patient has numerous other medical conditions including atrial fibrillation with chronic Coumadin anticoagulation. Patient has recently been started in a hospice program. In regards to the fall the patient had a mobile x-ray taken that revealed evidence of a fracture. Due to persistent pain she was transferred to [facility] for definitive evaluation and management. A left hip fracture was noted and she was admitted for further care of her left hip fracture. For complete history and physical data please refer the completed portion of the medical record. Orthopedic examination at this time reveals an obese elderly white female in minimal distress while lying in the hospital bed. She does have some edema in the left thigh. She has tenderness to palpation or compression of the upper thigh and left hip area. Neurosensory exam appears to be grossly intact. X-ray views are reviewed. This reveals a so minimally displaced intertrochanteric fracture of the left proximal femur. Laboratory data includes a hemoglobin of 8.4 with a white blood cell count of 6.5. Platelets are 245. PT today is 19.5 and INR 1.8. Current blood sugar is 173. Urinalysis is consistent with a urinary tract infection with a cloudy urine with positive nitrite large leukocyte esterase and many bacteria seen. Impression: Acute intertrochanteric fracture left proximal femur. Recommendation: Very long discussion with both patient and her daughter who has power of staff attorney. We discussed the fracture and knee treatment options available. This would include nonoperative or operative intervention. Nonoperative management would avoid the risk of surgery which is predominantly based upon the anesthesia component. This would put her at risk for further pulmonary or skin breakdown compromise. The other option would be to proceed with a intramedullary nailing of the left hip. I discussed that this is a relatively short and minimally invasive procedure but does put her at risk for the associated complications of the anesthetic component of her surgery. We discussed procedure in detail as well as potential risks and complications including but not limited to bleeding infection blood clots nerve injury stiffness malunion nonunion and leg length or rotational deformities. After much discussion the patient and the daughter feel that proceeding with surgical stabilization in the form of an intramedullary nailing is the best procedure for patient. This will allow her to be mobilized and avoid skin concerns as best as possible as well as helping to minimize pain. Informed consent has been signed. Would anticipate surgery in now 48 hours, this will allow time to her maximally medically prepared for surgery in light of her relatively high risk due to the multiple comorbidities. Thank you very much for allowing me to see and care for Mrs. Hauser. Sincerely, Parker Cordoba,DO Past Med Surg Social Fam HX - Past Medical History Medical history: arthritis, atrial fibrillation, cancer, CHF (LVEF 30-40%.), COPD (BEAR. Continuous O2 supplementation.), dementia, diabetes, GERD, GI bleed, hyperlipidemia, hypertension, malignancy (Vulvar Ca s/p radiation tx.), osteoporosis, renal disease, thyroid disease, other (anemia of chronic illness.) Psychiatric history: no psych history, other - Past Surgical History Surgical History: cholecystectomy, hysterectomy, GISSEL/BSO, other (Nephrectomy. Colonoscopy. EGD.) - Social History Smoking Status: Former smoker Smokeless Tobacco Status: No Alcohol use: none Drug use: none - Family History Mother Living Status: Hx Family Cardiac Disorders: Yes Hx Family Respiratory Disorders: Yes Hx Family Cancer: Yes Hx Family Medical Disorders: Yes Medications and Allergies Bisacodyl [Dulcolax] 10 mg RC WE 11/23/16 [History] Digoxin [Lanoxin] 0.125 mg PO DAILY 11/23/16 [History] Diltiazem CD (24hr) [Cardizem CD] 180 mg PO DAILY 11/23/16 [History] Docusate [Colace] 100 mg PO BID 11/23/16 [History] Furosemide [Lasix] 80 mg PO DAILY 11/23/16 [History] Insulin Degludec [Tresiba Flextouch U-100] 10 unit SQ DAILY 11/23/16 [History] Insulin Human Regular [HumuLIN R] 2 - 14 unit SQ TID 11/23/16 [History] Ipratropium/Albuterol Neb [Duoneb] 3 ml IH Q6HR PRN 11/23/16 [History] Levothyroxine [Synthroid] 25 mcg PO DAILY 11/23/16 [History] Oxycodone HCl 10 mg PO QID PRN 11/23/16 [History] Pantoprazole Sodium [Protonix] 40 mg PO DAILY 11/23/16 [History] Potassium Chloride [K-Tab ER] 20 meq PO DAILY 11/23/16 [History] Silver Sulfadiazine Cream [Silvadene] 1 appl TP TID 11/23/16 [History] Warfarin [Coumadin] 3 mg PO HS 11/23/16 [History] Allergies nifedipine [From Procardia] Allergy (Verified 07/14/16 10:44) See Comments All Systems Reviewed: A 10-system review of systems was performed and is negative for pertinent findings except as documented above in the HPI. Physical Exam - Constitutional Vitals: Temp Pulse Resp BP Pulse Ox 98.7 F 69 16 103/61 98 11/24/16 15:12 11/24/16 15:12 11/24/16 15:12 11/24/16 15:12 11/24/16 15:12 Results - Labs Result Diagrams: 11/24/16 06:13 11/24/16 06:13 Labs: Abnormal lab results RBC 2.98 M/mcL (3.82-4.97) L 11/24/16 06:13 Hgb 8.4 g/dL (11.5-15.4) L 11/24/16 06:13 Hct 28.3 % (35.3-44.9) L 11/24/16 06:13 MCHC 29.7 g/dL (31.6-35.5) L 11/24/16 06:13 RDW 14.7 % (11.5-14.5) H 11/24/16 06:13 MPV 9.3 fL (9.4-12.4) L 11/24/16 06:13 PT 19.5 Seconds (9.4-12.1) H 11/24/16 06:13 Carbon Dioxide 30 mEq/L (19-29) H 11/24/16 06:13 POC Glucose 173 (58-89) H 11/24/16 16:33 Calcium 8.0 mg/dL (8.6-10.8) L 11/24/16 06:13 Magnesium 1.4 mg/dL (1.6-2.6) L 11/24/16 06:13 B-Natriuretic Peptide 383 pg/mL (0-100) H 11/24/16 06:13 Albumin 1.8 g/dL (3.5-5.0) L 11/23/16 18:45 Globulin 4.4 g/dL (2.4-3.5) H 11/23/16 18:45 Albumin/Globulin Ratio 0.4 (1.1-2.2) L 11/23/16 18:45 HDL Cholesterol 35 mg/dL (40-59) L 11/24/16 06:13 Urine Clarity Cloudy (Clear) A 11/24/16 04:20 Urine Blood Trace (Negative) H 11/24/16 04:20 Urine Nitrite Positive (Negative) A 11/24/16 04:20 Ur Leukocyte Esterase Large (Negative) H 11/24/16 04:20 Urine Microscopic RBC 5-15 per hpf (0-3) H 11/24/16 04:20 Urine Microscopic WBC TNTC per hpf (0-3) H 11/24/16 04:20 Ur Squamous Epith Cells Many per lpf (None-Few) H 11/24/16 04:20 Urine Bacteria Many per hpf (None-Few) H 11/24/16 04:20 Ur Culture Indicated? YES (NO) A 11/24/16 04:20 Stool Occult Blood Positive (Negative) A 11/23/16 18:45 H & H 11/24/16 Range/Units 06:13 Hgb 8.4 L (11.5-15.4) g/dL Hct 28.3 L (35.3-44.9) % All other labs normal. Consult Discharge Plan - Plan Referrals: Al Gonzales MD [Primary Care Provider] -
[2016-11-24] MEDS: Insulin DETEMIR 100 UNIT/ML X5UNITS SQ SCH (22:07)
[2016-11-24] MEDS: Ascorbic Acid 500 MG TABLET PO SCH (22:07)
[2016-11-25] MEDS: *HR* HYDROmorphone (PF) 1 MG/ML SYRINGE IVP PRN ×3 (00:28→17:27)
[2016-11-25] MEDS: 0.9 % Sodium Chloride 1,000 ML IVC SCH (03:54)
[2016-11-25 06:57] LABS: Basophils % 0.4 %; Eosinophils # 0.1 K/mcL (0.0-0.6); Eosinophils % 0.9 %; Hematocrit 27.4 % (35.3-44.9); Hemoglobin 8.1 g/dL (11.5-15.4); Immature Granulocytes % 0.5 % (0-4); Lymphocytes # 0.7 K/mcL (0.6-4.6); Lymphocytes % 12.2 %; Mean Corpuscular HGB Conc 29.6 g/dL (31.6-35.5); Mean Corpuscular Hemoglobin 28.1 pg (28.0-33.3); Mean Corpuscular Volume 95.1 fL (83.0-100.0); Mean Platelet Volume 9.1 fL (9.4-12.4); Monocytes # 0.6 K/mcL (0.0-1.3); Monocytes % 11.1 %; Neutrophils # 4.1 K/mcL (1.6-8.9); Platelet Count 244 K/mcL (140-400); Red Blood Count 2.88 M/mcL (3.82-4.97); Red Cell Distribution Width 14.5 % (11.5-14.5); Segmented Neutrophils % 74.9 %
[2016-11-25 07:01] LABS: INR 1.3; Prothrombin Time 14.1 Seconds (9.4-12.1)
[2016-11-25 07:04] LABS: Activated Partial Thrombo Time 24.8 Seconds (26.0-36.0)
[2016-11-25 07:15] LABS: BUN/Creatinine Ratio 20 (6-26); Blood Urea Nitrogen 16 mg/dL (7-20); Carbon Dioxide 30 mEq/L (19-29); Chloride 103 mEq/L (98-109); Glucose 48 mg/dL (70-99); Osmolality,Calculated 284 (280-300); Potassium 3.8 mEq/L (3.5-4.5); Sodium 138 mEq/L (136-145); eGFR For African Americans > 60 (> 60); eGFR For Non-African Americans > 60 (> 60)
[2016-11-25 07:28] LABS: Calcium 8.6 mg/dL (8.6-10.8)
[2016-11-25] MEDS: Insulin LISPRO 300 UNITS/3 ML VIAL SQ SCH ×4 (07:51→22:22)
[2016-11-25] MEDS: *HR* Digoxin 0.125 MG TABLET PO SCH (08:43)
[2016-11-25] MEDS: Ascorbic Acid 500 MG TABLET PO SCH ×2 (08:43→22:24)
[2016-11-25] MEDS: Zinc Sulfate 220 MG CAPSULE PO SCH (08:43)
[2016-11-25] MEDS: Diltiazem CD (24hr) 180 MG CAPSULE PO SCH (08:43)
[2016-11-25] MEDS: Levothyroxine 25 MCG TABLET PO SCH (08:43)
[2016-11-25] MEDS: Silver Sulfadiazine 50 GM TUBE TP SCH ×3 (08:44→23:07)
[2016-11-25] MEDS ORDERED: Furosemide 40 MG TABLET PO SCH (09:00)
[2016-11-25] MEDS: *HR* Heparin 5,000 UNIT/ML VIAL SQ SCH ×2 (12:27→22:23)
[2016-11-25] MEDS: *HR* OxyCODONE Immed Rel 5 MG TABLET PO PRN (12:27)
--- NOTE | 2016-11-25 16:13 | Internal Med Progress Note ---
Date of Encounter: 11/25/16 Time of Encounter: 10:30 - Assessment and plan (1) Chronic atrial fibrillation Current Visit: Yes Status: Chronic (2) Unwitnessed fall Current Visit: Yes Status: Acute (3) Vulvar carcinoma Current Visit: Yes Status: Chronic (4) HTN (hypertension) Current Visit: Yes Status: Chronic Qualifiers: Hypertension type: essential hypertension Qualified Code(s): I10 - Essential (primary) hypertension (5) Type 2 diabetes mellitus Current Visit: Yes Status: Chronic Qualifiers: Diabetes mellitus complication status: with unspecified complications Diabetes mellitus long-term insulin use: unspecified long-term insulin use status Qualified Code(s): E11.8 - Type 2 diabetes mellitus with unspecified complications (6) Fracture of femur Current Visit: Yes Status: Acute Qualifiers: Encounter type: initial encounter Femur location: neck Fracture type: closed Laterality: left Qualified Code(s): S72.002A - Fracture of unspecified part of neck of left femur, initial encounter for closed fracture (7) COPD (chronic obstructive pulmonary disease) Current Visit: No Status: Chronic Qualifiers: Chronic bronchitis type: unspecified Qualified Code(s): J42 - Unspecified chronic bronchitis (8) Anemia Current Visit: Yes Status: Acute Qualifiers: Other causes of anemia: chronic disease, other Qualified Code(s): D63.8 - Anemia in other chronic diseases classified elsewhere (9) UTI (urinary tract infection) Current Visit: Yes Status: Acute Qualifiers: Urinary tract infection type: acute cystitis Hematuria presence: without hematuria Qualified Code(s): N30.00 - Acute cystitis without hematuria - Time Spent With Patient less than 15 minutes - Subjective Interval history: Pain medication has been effective for controlling her pain. She denies any shortness of breath. She states she is breathing fine. Pain is controlled if she sits still. - Constitutional Vitals: Temp Pulse Resp BP Pulse Ox 99.0 F 102 16 107/64 99 11/25/16 11:32 11/25/16 11:32 11/25/16 11:32 11/25/16 11:32 11/25/16 11:32 General appearance: Present: A&O X 1, mild distress. Absent: answers questions appropriately - Respiratory Respiratory exam: Present: CTAB. Absent: rhonchi, wheezes - Cardiovascular Cardiovascular exam: Present: irregular rhythm Internal Medicine: Result - Labs CBC & Chem 7: 11/25/16 06:40 11/25/16 06:40 Labs: Short CBC 11/25/16 Range/Units 06:40 WBC 5.5 (4.3-11.1) K/mcL Hgb 8.1 L (11.5-15.4) g/dL Hct 27.4 L (35.3-44.9) % Plt Count 244 (140-400) K/mcL Neutrophils # 4.1 (1.6-8.9) K/mcL BMP 11/25/16 06:40 Sodium 138 Potassium 3.8 Chloride 103 Carbon Dioxide 30 H BUN 16 Creatinine 0.82 Glucose 48 L Calcium 8.6 - ABG Interpretation ABG results: PT/INR, D-dimer PT 14.1 Seconds (9.4-12.1) H 11/25/16 06:40 Consult Discharge Plan - Plan Referrals: Al Gonzales MD [Primary Care Provider] -
--- NOTE | 2016-11-25 19:26 | Orthopedics Progress Note ---
Date of Encounter: 11/25/16 Time of Encounter: 19:24 Subjective Principal diagnosis: Intertrochanteric fracture left hip Interval history: 11/25/2016. Patient is seen in follow-up regarding her left hip fracture. Pain management has been good. Vital signs are stable. Patient is afebrile. Exam is unchanged. Hemoglobin is 8.1. Platelet count remains 244. PTT is 14.1 with an INR of 1.3. Urine culture is growing a gram-negative kristine. Patient has been on ceftriaxone. Impression: Intertrochanteric fracture left hip Plan: We will proceed with intramedullary nailing of her left hip tomorrow. Informed consent has been obtained. Preoperative orders have been written. Objective Vital signs: Vital Signs Temp Pulse Resp BP Pulse Ox 11/25/16 16:26 99.2 F 121 16 135/85 97 11/25/16 11:32 99.0 F 102 16 107/64 99 11/25/16 08:31 102/68 11/25/16 06:56 99.0 F 102 16 98/62 95 11/25/16 04:06 99.8 F H 77 20 94/56 95 11/24/16 23:55 99.7 F H 74 16 102/64 98 11/24/16 21:00 98.5 F 71 16 109/68 96 Intake and Output 11/25/16 11/25/16 11/25/16 07:59 15:59 23:59 Intake Total 1100 / 1100 Output Total 150 / 150 525 / 525 Balance 950 / 950 -525 / -525 Intake: IV Fluids 1100 / 1100 0.9 % Sodium Chloride 1, 1000 / 1000 000 ML @ 75 mls/hr IVC . [id number] [facility] Rx#: [id number] Rocephin 1,000 MG In 100 / 100 Dextrose 5% (Minibag+) 100 ML 100 ML @ 200 mls/ hr IVPB Q12HR [facility]BER Rx#: [id number] Output: Catheter 150 / 150 525 / 525 Other: Blood Glucose* 52 88 82 - Labs CBC & BMP: 11/25/16 06:40 11/25/16 06:40 Labs: Abnormal lab results RBC 2.88 M/mcL (3.82-4.97) L 11/25/16 06:40 Hgb 8.1 g/dL (11.5-15.4) L 11/25/16 06:40 Hct 27.4 % (35.3-44.9) L 11/25/16 06:40 MCHC 29.6 g/dL (31.6-35.5) L 11/25/16 06:40 MPV 9.1 fL (9.4-12.4) L 11/25/16 06:40 PT 14.1 Seconds (9.4-12.1) H 11/25/16 06:40 APTT 24.8 Seconds (26.0-36.0) L 11/25/16 06:40 Carbon Dioxide 30 mEq/L (19-29) H 11/25/16 06:40 Glucose 48 mg/dL (70-99) L 11/25/16 06:40 Magnesium 1.4 mg/dL (1.6-2.6) L 11/24/16 06:13 B-Natriuretic Peptide 383 pg/mL (0-100) H 11/24/16 06:13 Albumin 1.8 g/dL (3.5-5.0) L 11/23/16 18:45 Globulin 4.4 g/dL (2.4-3.5) H 11/23/16 18:45 Albumin/Globulin Ratio 0.4 (1.1-2.2) L 11/23/16 18:45 HDL Cholesterol 35 mg/dL (40-59) L 11/24/16 06:13 Urine Clarity Cloudy (Clear) A 11/24/16 04:20 Urine Blood Trace (Negative) H 11/24/16 04:20 Urine Nitrite Positive (Negative) A 11/24/16 04:20 Ur Leukocyte Esterase Large (Negative) H 11/24/16 04:20 Urine Microscopic RBC 5-15 per hpf (0-3) H 11/24/16 04:20 Urine Microscopic WBC TNTC per hpf (0-3) H 11/24/16 04:20 Ur Squamous Epith Cells Many per lpf (None-Few) H 11/24/16 04:20 Urine Bacteria Many per hpf (None-Few) H 11/24/16 04:20 Ur Culture Indicated? YES (NO) A 11/24/16 04:20 Stool Occult Blood Positive (Negative) A 11/23/16 18:45 Consult Discharge Plan - Plan Referrals: Al Gonzales MD [Primary Care Provider] -
[2016-11-25] MEDS: Insulin DETEMIR 100 UNIT/ML X5UNITS SQ SCH (22:23)
[2016-11-26 05:50] LABS: Basophils % 0.7 %; Eosinophils # 0.1 K/mcL (0.0-0.6); Eosinophils % 2.2 %; Hematocrit 29.8 % (35.3-44.9); Immature Granulocytes % 0.5 % (0-4); Lymphocytes % 23.6 %; Mean Corpuscular HGB Conc 30.2 g/dL (31.6-35.5); Mean Corpuscular Hemoglobin 28.4 pg (28.0-33.3); Mean Platelet Volume 9.2 fL (9.4-12.4); Monocytes # 0.5 K/mcL (0.0-1.3); Monocytes % 11.8 %; Neutrophils # 2.5 K/mcL (1.6-8.9); Platelet Count 294 K/mcL (140-400); Red Blood Count 3.17 M/mcL (3.82-4.97); Red Cell Distribution Width 14.4 % (11.5-14.5); Segmented Neutrophils % 61.2 %
[2016-11-26 05:53] LABS: INR 1.1; Prothrombin Time 12.2 Seconds (9.4-12.1)
[2016-11-26 05:56] LABS: Activated Partial Thrombo Time 28.7 Seconds (26.0-36.0)
[2016-11-26 06:04] LABS: BUN/Creatinine Ratio 18 (6-26); Blood Urea Nitrogen 14 mg/dL (7-20); Calcium 8.2 mg/dL (8.6-10.8); Carbon Dioxide 32 mEq/L (19-29); Chloride 102 mEq/L (98-109); Glucose 42 mg/dL (70-99); Osmolality,Calculated 289 (280-300); Potassium 3.6 mEq/L (3.5-4.5); Sodium 141 mEq/L (136-145); eGFR For African Americans > 60 (> 60); eGFR For Non-African Americans > 60 (> 60)
[2016-11-26] MEDS: 0.9 % Sodium Chloride 1,000 ML IVC SCH (07:01)
[2016-11-26] MEDS: *HR* Dextrose 50 % in Water (Syg) 50 ML SYRINGE IVP PRN ×2 (07:16→20:02)
[2016-11-26] MEDS: Insulin LISPRO 300 UNITS/3 ML VIAL SQ SCH ×4 (07:26→21:12)
--- NOTE | 2016-11-26 07:49 | Internal Med Progress Note ---
Date of Encounter: 11/26/16 Time of Encounter: 07:49 - Assessment and plan (1) Chronic atrial fibrillation Current Visit: Yes Status: Chronic Assessment and plan: She has had a bit of tachycardia. I am going to go ahead and give her 240 mg dose of Cardizem to get her heart rate low but better controlled (2) Unwitnessed fall Current Visit: Yes Status: Acute (3) Vulvar carcinoma Current Visit: Yes Status: Chronic (4) HTN (hypertension) Current Visit: Yes Status: Chronic Qualifiers: Hypertension type: essential hypertension Qualified Code(s): I10 - Essential (primary) hypertension (5) Type 2 diabetes mellitus Current Visit: Yes Status: Chronic Qualifiers: Diabetes mellitus complication status: with unspecified complications Diabetes mellitus continuous churn buttermaker insulin use: unspecified continuous churn buttermaker insulin use status Qualified Code(s): E11.8 - Type 2 diabetes mellitus with unspecified complications (6) Fracture of femur Current Visit: Yes Status: Acute Qualifiers: Encounter type: initial encounter Femur location: neck Fracture type: closed Laterality: left Qualified Code(s): S72.002A - Fracture of unspecified part of neck of left femur, initial encounter for closed fracture (7) COPD (chronic obstructive pulmonary disease) Current Visit: No Status: Chronic Qualifiers: Chronic bronchitis type: unspecified Qualified Code(s): J42 - Unspecified chronic bronchitis (8) Anemia Current Visit: Yes Status: Acute Qualifiers: Other causes of anemia: chronic disease, other Qualified Code(s): D63.8 - Anemia in other chronic diseases classified elsewhere (9) UTI (urinary tract infection) Current Visit: Yes Status: Acute Assessment and plan: Continues on Rocephin, her culture grew a Klebsiella that is sensitive to everything Qualifiers: Urinary tract infection type: acute cystitis Hematuria presence: without hematuria Qualified Code(s): N30.00 - Acute cystitis without hematuria (10) Hypoglycemia associated with type 2 diabetes mellitus Current Visit: Yes Status: Acute Assessment and plan: The hypoglycemia protocol has been enacted. She does arouse fairly easy. She denies of any complaints. We will continue some D 5 running. We will hold her morning dose of Levemir as she is nothing by mouth for surgery - Time Spent With Patient 25 - 35 minutes - Subjective Interval history: Pain medication has been effective for controlling her pain. She really denies any complaints. She did have an episode of low blood sugar today. On evaluation of her vitals her heart rate is running sometimes up to 110 and on rare occasions, has run 130 per staff. - Constitutional Vitals: Temp Pulse Resp BP Pulse Ox 98.6 F 112 16 134/77 100 11/26/16 07:42 11/26/16 07:42 11/26/16 07:42 11/26/16 07:42 11/26/16 07:43 General appearance: Present: A&O X 1, answers questions appropriately - Respiratory Respiratory exam: Present: CTAB - Cardiovascular Cardiovascular exam: Present: tachycardia (Alfredito tachycardia time of my exam she read any were between 100-110 bpm) Internal Medicine: Result - Labs CBC & Chem 7: 11/26/16 05:32 11/26/16 05:32 Labs: Short CBC 11/26/16 Range/Units 05:32 WBC 4.1 L (4.3-11.1) K/mcL Hgb 9.0 L (11.5-15.4) g/dL Hct 29.8 L (35.3-44.9) % Plt Count 294 (140-400) K/mcL Neutrophils # 2.5 (1.6-8.9) K/mcL BMP 11/26/16 05:32 Sodium 141 Potassium 3.6 Chloride 102 Carbon Dioxide 32 H BUN 14 Creatinine 0.79 Glucose 42 L Calcium 8.2 L - ABG Interpretation ABG results: PT/INR, D-dimer PT 12.2 Seconds (9.4-12.1) H 11/26/16 05:32 Consult Discharge Plan - Plan Referrals: Al Gonzales MD [Primary Care Provider] -
[2016-11-26] MEDS ORDERED: Diltiazem CD (24hr) 240 MG CAPSULE PO SCH (08:00)
[2016-11-26] MEDS ORDERED: D5% in 0.45% NACL w KCl 10 MEQ/1,000 ML MLS IVC SCH (08:00)
[2016-11-26] MEDS: *HR* Digoxin 0.125 MG TABLET PO SCH (08:25)
[2016-11-26] MEDS: Zinc Sulfate 220 MG CAPSULE PO SCH (08:25)
[2016-11-26] MEDS: Levothyroxine 25 MCG TABLET PO SCH (08:25)
[2016-11-26] MEDS: Ascorbic Acid 500 MG TABLET PO SCH ×2 (08:25→21:39)
[2016-11-26] MEDS: Silver Sulfadiazine 50 GM TUBE TP SCH ×4 (08:26→22:11)
[2016-11-26] MEDS: *HR* HYDROmorphone (PF) 1 MG/ML SYRINGE IVP PRN ×2 (08:52→12:16)
[2016-11-26] MEDS: Ondansetron 4 MG/2 ML VIAL IVP PRN (09:19)
--- NOTE | 2016-11-26 16:27 | Anesthesia Evaluation PreOp ---
Date of Encounter: 11/26/16 Time of Encounter: 16:25 - Past History Planned Operation: L-Hip IM Nailing Cardiac History: CHF (maintained on Lasix. BNP = 383 (elevated) this admission) , HTN, Hyperlipidemia, Arrhythmia (anticoagulated on Coumadin. Rate/rythym control w/ Diltiazem & Digoxin), Other (LVEF estimated 30-40% per current H&P. Last documented EHCO 08/2015 demonstrates LVEF 55%, No PulmHtn ,Moderate NABIL,) Pulmonary History: Former smoker, COPD (maintained on DuoNebs. 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 Acute on Chronic mental status at time of admission.) Other Medical History: Renal (UTI this admissionn), Diabetes Type II (well controlled w/HbA1c = 4.7, avg glucose = 88), Thyroid, Other (Closed intertrochanteric L-femur. Severe protein calorie malnutrition. Vulvar Carcinoma s/p radiation & 1 course of chemo [@ [facility] Pt unable to tolerate treatments (leon/illness) and pt is now palliative care.) Anesthesia History: No Prior Anesthetic Complications, Past Anesthesia (Mandy, Hyster, Nephrectomy, Colonoscopy) Alcohol Use: none Drug use: none Medications and Allergies Bisacodyl [Dulcolax] 10 mg RC WE 11/23/16 [History] Digoxin [Lanoxin] 0.125 mg PO DAILY 11/23/16 [History] Diltiazem CD (24hr) [Cardizem CD] 180 mg PO DAILY 11/23/16 [History] Docusate [Colace] 100 mg PO BID 11/23/16 [History] Furosemide [Lasix] 80 mg PO DAILY 11/23/16 [History] Insulin Degludec [Tresiba Flextouch U-100] 10 unit SQ DAILY 11/23/16 [History] Insulin Human Regular [HumuLIN R] 2 - 14 unit SQ TID 11/23/16 [History] Ipratropium/Albuterol Neb [Duoneb] 3 ml IH Q6HR PRN 11/23/16 [History] Levothyroxine [Synthroid] 25 mcg PO DAILY 11/23/16 [History] Oxycodone HCl 10 mg PO QID PRN 11/23/16 [History] Pantoprazole Sodium [Protonix] 40 mg PO DAILY 11/23/16 [History] Potassium Chloride [K-Tab ER] 20 meq PO DAILY 11/23/16 [History] Silver Sulfadiazine Cream [Silvadene] 1 appl TP TID 11/23/16 [History] Warfarin [Coumadin] 3 mg PO HS 11/23/16 [History] Allergies nifedipine [From Procardia] Allergy (Verified 07/14/16 10:44) See Comments - Meds/Allergy Pre-op Review Medications Reviewed: Yes Allergies Reviewed: Yes Beta Blockers on Current Med List: No Anesthesia Results - Labs 11/26/16 05:32 11/26/16 05:32 Laboratory Results Impressions Chest X-Ray 11/23/16 17:42 IMPRESSION: 1. Cardiomegaly and pulmonary venous congestion. D/ / Christian Hill MD / Christian Hill MD Interpreting Provider: Christian Hill MD Head CT 11/23/16 17:42 IMPRESSION: 1. No acute intracranial abnormality. 2. Stable diffuse parenchymal volume loss with moderate to severe chronic white matter microvascular ischemic changes. D/ / Jim Ball MD / Jim Ball MD Interpreting Provider: Jim Ball MD Femur X-Ray 11/23/16 17:43 IMPRESSION: 1. Acute nondisplaced intratrochanteric left femoral neck fracture with suspected subtrochanteric extension. 2. Osteopenia. D/ / Jim Ball MD / Jim Ball MD Interpreting Provider: Jim Ball MD Pelvis X-Ray 11/23/16 17:43 IMPRESSION: Mildly displaced left intratrochanteric fracture is likely present, although evaluation is limited by single view. A moderately displaced fragment is seen along the left lesser trochanter. Ill-defined lucency through the medial aspect of the left inferior pubic ramus. Consider further evaluation with CT to exclude fracture. D/ / 11/23/2016 18:29:58 Reji Ag MD / Светлана Gresham Interpreting Provider: Reji Ag MD - Imaging EKG: image reviewed (AFib 63bpm, Non-specific Twave abnormality) Anesthesia Exam Vital Signs Temp Pulse Resp BP Pulse Ox 11/26/16 10:07 98.5 F 104 16 129/78 95 11/26/16 08:37 100 11/26/16 07:43 100 11/26/16 07:42 98.6 F 112 16 134/77 100 11/26/16 06:31 98.5 F 107 16 128/76 95 11/26/16 05:04 98.7 F 116 18 126/79 99 11/26/16 00:40 98.9 F 98 16 128/70 98 11/25/16 22:50 96 11/25/16 19:31 98.2 F 114 18 126/68 96 Intake and Output 11/26/16 11/26/16 11/26/16 07:59 15:59 23:59 Intake Total 100 / 100 100 / 100 Output Total 550 / 550 650 / 650 Balance -450 / -450 -550 / -550 Intake: IV Fluids 100 / 100 100 / 100 0.9 % Sodium Chloride 1, 100 / 100 000 ML @ 75 mls/hr IVC . [id number] AMBER Rx#: [id number] Rocephin 1,000 MG In 100 / 100 Dextrose 5% (Minibag+) 100 ML 100 ML @ 200 mls/ hr IVPB Q12HR AMBER Rx#: [id number] Output: Urine 550 / 550 Catheter 650 / 650 Other: Blood Glucose* 89 75 90 Height: 5'6" Weight: 220# BMI = 36 NPO (# of Hours): MNoc - HEENT Pupil (Motor): Pupils equal, EOMI Mallampati: III Teeth: Edentulous Oral Opening: Greater than 3 - TETRYL SCREEN OPERATOR LOC: Oriented TETRYL SCREEN OPERATOR Motor: Normal RUE, Normal LUE, Normal RLE, Normal Face, Deficit LLE TETRYL SCREEN OPERATOR Sensory: Normal: RUE, LUE, RLE, Face, Deficit: LLE - Cardiac Rhythm: Irregular Murmur: Systolic JVD: No - Pulmonary Breath Sounds: bilateral Rales (faint expiratory wheezes on diminished breath sounds (body habitus)) Respiratory Effort: Symmetrical Anesthesia Assess/Plan ASA Score: 4 (CHF, COPD, HTN, CRI, Vulvar Ca, BEAR, O2 dependent) Modified Sergio Scale for Level of Consciousness: Cooperative, oriented, and tranquil Anesthetic Plan: General Monitoring Plan: Standard Monitors Recovery Plan: PACU Anes Supervising Prov Stmt: Pt seen/evaluated, R&B discussed, questions answered and consent obtained w/ Family-POA present. Chas France MD
[2016-11-26] MEDS ORDERED: Lidocaine -MPF 2% 2 ML VIAL ONE (17:07)
[2016-11-26] MEDS ORDERED: *HR* FentaNYL (PF) 100 MCG/2 ML VIAL ONE (17:07)
[2016-11-26] MEDS ORDERED: Ondansetron 4 MG/2 ML VIAL ONE (17:07)
[2016-11-26] MEDS ORDERED: *HR* Propofol 200 MG/20 ML VIAL IVP ONE (17:07)
[2016-11-26] MEDS ORDERED: *HR* Succinylcholine 200 MG/10 ML VIAL IVP ONE (17:07)
[2016-11-26] MEDS ORDERED: ceFAZolin 2,000 MG in D5% in Water 100 ML IVPB ONE (17:30)
[2016-11-26] MEDS ORDERED: *HR* Etomidate 40 MG/20 ML VIAL IVP ONE (17:56)
[2016-11-26] MEDS ORDERED: *HR* Morphine 10 MG/ML VIAL ONE (19:28)
[2016-11-26] MEDS ORDERED: *HR* HYDROmorphone 2 MG/ML SYRINGE ONE (19:45)
[2016-11-26] MEDS ORDERED: *HR* HYDROmorphone (PF) 1 MG/ML SYRINGE IVP PRN (20:10)
--- NOTE | 2016-11-26 20:16 | Operative Note ---
Date of procedure: 11/26/16 Pre-op diagnosis: Peritrochanteric fracture left proximal femur Post-op diagnosis: same Procedure: #1. Intramedullary nailing left hip #2. Fluoroscopic guidance for IM nailing left hip Implants: Synthes 11 mm x 170 mm x 130 degree angle TFNA, 95 mm x 11 mm helical blade and a 36 mm x 5.0 mm distal locking screw Complications: None Anesthesia: GETA Surgeon: Parker Cordoba Estimated blood loss (cc): 100 Specimen: None Condition: stable Disposition: PACU Procedure in Detail: Gross findings: Preoperative x-rays showed a somewhat complex comminuted fracture of the intertrochanteric region of the left proximal femur. His was manifested with a fracture line through the greater to the lesser trochanter with anterior displaced fragment and angulation. There is suspicion for a fracture line extending slightly lateral inferiorly. The fracture was stabilized with placement of a trochanteric femoral nail with fluoroscopic guidance and verification of fracture position and implant position. No complicating features were encountered. Procedure: Patient was taken the operating room and while in the hospital bed was administered general anesthesia. Patient was now transferred to the [facility] fracture table. Left lower extremity was placed longitudinal traction and the right lower extremity was positioned out of harm's way and the [facility] leg aguilar. At this time fluoroscopy was introduced and utilized to guide the initial reduction which was accomplished with a combination of traction, adduction and some external rotation. Once alignment was in appropriate position the left hip was prepped and draped in normal standard fashion for surgery. Incision was made above the level of the trochanter. Dissection was carried through the significant amount of subtendinous adipose tissue down level of the fascia which was split. The tip of the trochanter was palpated and now with fluoroscopic guidance in both AP and lateral planes guidewire was placed in the central position on the trochanter and passed down the femoral canal. The trochanter was then opened up with the large drill bit. The nail was then placed on the insertion jig passed over the guidewire and then passed down the femoral canal. Seated in appropriate position with fluoroscopic verification. At this time the helical blade guide was placed. Second incision was made and dissection was carefully subtendinous tissues down to the fascia and then the guide was used to place a pin in the central position in the head on both AP and lateral views. This was measured and a 95 mm helical blade was selected. Head and neck were then reamed. Helical blade was then placed and seated. Helical blade was locked from above. Fracture was compressed. The helical blade guide was then removed and the distal locking screw guide was used to drill and then placed the distal locking screw. Excellent position of the fracture and implant was verified with multiplane fluoroscopy. With implants in place attention was paid to closure. Wounds were irrigated and then closed with #1 Vicryl in the fascia followed by #1 Vicryl the deep septated tissue followed by 2-0 undyed Vicryl placed in an inverted interrupted manner and medius subtendinous layer. Skin was then closed with running septic stitch of 20 Quill. Skin glue was now applied. Once a glue had hardened operative foam was applied and secured. Patient was then transferred from the fracture table hospital bed, awakened and extubated and then transferred to the postanesthesia care unit in stable and satisfactory condition. All sponge and needle evidence correct. No specimens were sent for pathology.
--- NOTE | 2016-11-26 20:35 | Anesthesia Evaluation Post Op ---
Date of Encounter: 11/26/16 Time of Encounter: 20:34 - Vital Signs Vital Signs: Vital Signs/O2 Sat, Most Current Temp Pulse Resp BP Pulse Ox 97.2 F L 111 20 158/58 94 L 11/26/16 19:55 11/26/16 20:15 11/26/16 20:15 11/26/16 20:15 11/26/16 20:15 - Lungs Lungs: Clear Ascult./Percussion - Airway Airway: Non-obstructed - Cardiovascular Irregular Rate, Baseline Rhythm - Mental Status Mental Status: Alert & Oriented, Answers Appropriately - Pain Pain Scale: 0 Pain Scale used: Numeric (1 - 10) - Nausea Vomiting Nausea Vomiting: Not Present - Hydration Hydration: NPO, Boyd catheter - Discharge PostOp Status: Transfer Patient to floor
[2016-11-26] MEDS: *HR* OxyCODONE Immed Rel 5 MG TABLET PO PRN (21:39)
[2016-11-26] MEDS ORDERED: Bisacodyl 10 MG RECTAL SUPPOSITORY RC PRN (22:50)
[2016-11-26] MEDS ORDERED: Acetaminophen 325 MG TABLET PO PRN (22:50)
[2016-11-26] MEDS ORDERED: *HR* Dextrose 50 % in Water (Syg) 50 ML SYRINGE IVP PRN (22:50)
[2016-11-26] MEDS ORDERED: Dextrose Gel 15 GM PO PRN ×2 (22:50)
[2016-11-26] MEDS ORDERED: D5% in Water 1,000 ML IV PRN (22:50)
[2016-11-26] MEDS ORDERED: Naloxone 0.4 MG/ML INJ IVP PRN (22:50)
[2016-11-26] MEDS: D5% in 0.45% NACL w KCl 10 MEQ/1,000 ML MLS IVC SCH (23:56)
[2016-11-27] MEDS: ceFAZolin 2,000 MG in D5% in Water 100 ML IVPB SCH ×2 (00:41→11:32)
[2016-11-27 05:01] LABS: INR 1.1; Prothrombin Time 11.5 Seconds (9.4-12.1)
[2016-11-27 05:05] LABS: Activated Partial Thrombo Time 18.2 Seconds (26.0-36.0)
[2016-11-27 05:18] LABS: BUN/Creatinine Ratio 13 (6-26); Blood Urea Nitrogen 9 mg/dL (7-20); Calcium 8.3 mg/dL (8.6-10.8); Carbon Dioxide 28 mEq/L (19-29); Chloride 104 mEq/L (98-109); Glucose 91 mg/dL (70-99); Osmolality,Calculated 280 (280-300); Potassium 4.4 mEq/L (3.5-4.5); Sodium 136 mEq/L (136-145); eGFR For African Americans > 60 (> 60); eGFR For Non-African Americans > 60 (> 60)
[2016-11-27 06:29] LABS: Basophils % 0.4 %; Eosinophils # 0.1 K/mcL (0.0-0.6); Eosinophils % 2.9 %; Hematocrit 26.5 % (35.3-44.9); Hemoglobin 8.1 g/dL (11.5-15.4); Immature Granulocytes % 0.4 % (0-4); Immature Platelets 2.2 % (1.1-6.1); Lymphocytes # 1.4 K/mcL (0.6-4.6); Lymphocytes % 28.6 %; Mean Corpuscular HGB Conc 30.6 g/dL (31.6-35.5); Mean Corpuscular Hemoglobin 28.6 pg (28.0-33.3); Mean Corpuscular Volume 93.6 fL (83.0-100.0); Mean Platelet Volume 9.7 fL (9.4-12.4); Monocytes # 0.5 K/mcL (0.0-1.3); Monocytes % 9.8 %; Neutrophils # 2.8 K/mcL (1.6-8.9); Platelet Count 298 K/mcL (140-400); Red Blood Count 2.83 M/mcL (3.82-4.97); Red Cell Distribution Width 14.3 % (11.5-14.5); Segmented Neutrophils % 57.9 %
[2016-11-27] MEDS: Levothyroxine 25 MCG TABLET PO SCH (06:35)
[2016-11-27] MEDS: *HR* Enoxaparin 30 MG/0.3 ML SYRINGE SQ SCH ×2 (06:37→17:27)
[2016-11-27] MEDS: Insulin LISPRO 300 UNITS/3 ML VIAL SQ SCH ×3 (08:10→17:27)
[2016-11-27] MEDS: Zinc Sulfate 220 MG CAPSULE PO SCH (08:31)
[2016-11-27] MEDS: *HR* Digoxin 0.125 MG TABLET PO SCH (08:32)
[2016-11-27] MEDS: Furosemide 40 MG TABLET PO SCH (08:32)
[2016-11-27] MEDS: Diltiazem CD (24hr) 240 MG CAPSULE PO SCH (08:32)
[2016-11-27] MEDS: Ascorbic Acid 500 MG TABLET PO SCH ×2 (08:33→21:40)
[2016-11-27] MEDS: Silver Sulfadiazine 50 GM TUBE TP SCH ×3 (08:33→21:35)
[2016-11-27] MEDS ORDERED: Warfarin perPT PO PRN (10:29)
[2016-11-27] MEDS ORDERED: *HR* Digoxin 0.5 MG/2 ML AMPUL IVP ONE (11:46)
--- NOTE | 2016-11-27 11:48 | Internal Med Progress Note ---
Date of Encounter: 11/27/16 Time of Encounter: 11:46 - Assessment and plan (1) Fracture of femur Current Visit: Yes Status: Acute Assessment and plan: s/p surgery no complication Qualifiers: Encounter type: initial encounter Femur location: neck Fracture type: closed Laterality: left Qualified Code(s): S72.002A - Fracture of unspecified part of neck of left femur, initial encounter for closed fracture (2) Anemia Current Visit: Yes Status: Acute Assessment and plan: stable hgb Qualifiers: Anemia type: unspecified type Qualified Code(s): D64.9 - Anemia, unspecified (3) Closed intertrochanteric fracture of left femur Current Visit: Yes Status: Acute Assessment and plan: s/p surgery Qualifiers: Encounter type: initial encounter Qualified Code(s): S72.142A - Displaced intertrochanteric fracture of left femur, initial encounter for closed fracture (4) Chronic anticoagulation Current Visit: Yes Status: Chronic Assessment and plan: resumed coumadin (5) Dementia arising in the senium and presenium Current Visit: Yes Status: Chronic Assessment and plan: chronic (6) Anemia, chronic disease Current Visit: Yes Status: Chronic Assessment and plan: chronic (7) Vulvar carcinoma Current Visit: Yes Status: Chronic (8) HTN (hypertension) Current Visit: Yes Status: Chronic Assessment and plan: well controlled Qualifiers: Hypertension type: essential hypertension Qualified Code(s): I10 - Essential (primary) hypertension (9) HLD (hyperlipidemia) Current Visit: Yes Status: Chronic Qualifiers: Hyperlipidemia type: unspecified Qualified Code(s): E78.5 - Hyperlipidemia , unspecified (10) Type 2 diabetes mellitus Current Visit: Yes Status: Chronic Assessment and plan: on sliding scale Qualifiers: Diabetes mellitus complication status: with unspecified complications Diabetes mellitus longterm insulin use: unspecified longterm insulin use status Qualified Code(s): E11.8 - Type 2 diabetes mellitus with unspecified complications (11) COPD (chronic obstructive pulmonary disease) Current Visit: No Status: Chronic Qualifiers: COPD type: chronic bronchitis Chronic bronchitis type: unspecified Qualified Code(s): J42 - Unspecified chronic bronchitis - Subjective Interval history: patient with hiswtory of dementia, chronic atrial fib, valvular carcinoma diabetes admitted following fall sustaining left femur fracture s/p surgery yesterday doing well no complains today in atrial fib rate 108 asked nurse to give additional digoxin 0.25 mg iv - Constitutional Vitals: Temp Pulse Resp BP Pulse Ox 98.7 F 103 18 133/81 94 L 11/27/16 11:00 11/27/16 11:00 11/27/16 11:00 11/27/16 11:00 11/27/16 11:00 General appearance: Present: A&O X 1, answers questions appropriately - Eye Eye exam: Present: PERRL, conjuntiva pink, sclera anicteric Pupils: Present: PERRL - Neck Neck exam general surgery: Present: supple, trachea midline. Absent: lymphadenopathy - Respiratory Respiratory exam: Present: CTAB. Absent: accessory muscle use, rales, rhonchi, wheezes - Cardiovascular Cardiovascular exam: Present: irregular rhythm, RRR, +S1, +S2. Absent: diastolic murmur, gallop, rubs, systolic murmur Internal Medicine: Result - Labs CBC & Chem 7: 11/27/16 05:45 11/27/16 04:43 Labs: Short CBC 11/27/16 Range/Units 05:45 WBC 4.8 (4.3-11.1) K/mcL Hgb 8.1 L (11.5-15.4) g/dL Hct 26.5 L (35.3-44.9) % Plt Count 298 (140-400) K/mcL Neutrophils # 2.8 (1.6-8.9) K/mcL BMP 11/27/16 04:43 Sodium 136 Potassium 4.4 Chloride 104 Carbon Dioxide 28 BUN 9 Creatinine 0.71 Glucose 91 Calcium 8.3 L - ABG Interpretation ABG results: PT/INR, D-dimer PT 11.5 Seconds (9.4-12.1) 11/27/16 04:43 - Impressions Impressions Fluoroscopy 11/26/16 18:18 IMPRESSION: Intraprocedural fluoroscopic spot images as above. See separate procedure report for more information. D/ / 11/26/2016 19:48:53 Donald Montelongo MD / eartaras Interpreting Provider: Donald Montelongo MD Hip X-Ray 11/26/16 18:18 IMPRESSION: Intraprocedural fluoroscopic spot images as above. See separate procedure report for more information. D/ / 11/26/2016 19:48:53 Donald Montelongo MD / earnold Interpreting Provider: Donald Montelongo MD - VTE Documentation of Mechanical Device: Venous foot pump, device Consult Discharge Plan - Plan Referrals: Al Gonzales MD [Primary Care Provider] -
[2016-11-27] MEDS: *HR* OxyCODONE Immed Rel 5 MG TABLET PO PRN ×2 (12:20→21:40)
[2016-11-27] MEDS: Ondansetron 4 MG/2 ML VIAL IVP PRN (12:33)
--- NOTE | 2016-11-27 13:48 | Orthopedics Progress Note ---
Date of Encounter: 11/27/16 Time of Encounter: 13:46 Subjective Principal diagnosis: Intertrochanteric fracture left hip Interval history: 11/25/2016. Patient is seen in follow-up regarding her left hip fracture. Pain management has been good. Vital signs are stable. Patient is afebrile. Exam is unchanged. Hemoglobin is 8.1. Platelet count remains 244. PTT is 14.1 with an INR of 1.3. Urine culture is growing a gram-negative kristine. Patient has been on ceftriaxone. Impression: Intertrochanteric fracture left hip Plan: We will proceed with intramedullary nailing of her left hip tomorrow. Informed consent has been obtained. Preoperative orders have been written. 11/27/2016. Patient is postop day #1 from intramedullary nailing of her left hip. She is having less pain today than preop. Vital signs are stable. She does have a pulse of about 110. History of chronic A. fib. Afebrile. Dressings show only minor serous spotting. Leg is somewhat edematous. Hemoglobin is 8.1, stable. Platelet count normal. Impression: POD #1 IM nailing left hip, orthopedic status stable Recommendation: Can ambulate patient as tolerated. We will continue to monitor. health services information specialist for discharge planning process. Objective Vital signs: Vital Signs Temp Pulse Resp BP Pulse Ox 11/27/16 11:00 98.7 F 103 18 133/81 94 L 11/27/16 08:30 95 11/27/16 07:46 98.7 F 106 18 133/75 95 11/27/16 05:21 99.6 F 102 15 138/78 95 11/26/16 23:00 98.4 F 104 18 118/77 100 11/26/16 22:00 98.3 F 107 18 98 11/26/16 21:30 98.3 F 114 16 139/81 97 11/26/16 21:00 98.1 F 106 16 130/68 99 11/26/16 20:35 94 20 154/87 96 11/26/16 20:25 97.7 F 101 20 148/107 95 11/26/16 20:15 111 20 158/58 94 L 11/26/16 20:05 96 20 152/85 100 11/26/16 19:55 97.2 F L 119 24 147/106 100 Intake and Output 11/26/16 11/27/16 11/27/16 23:59 07:59 15:59 Intake Total 400 / 400 Output Total 100 / 100 100 / 100 Balance -100 / -100 -100 / -100 400 / 400 Intake: IV Fluids 300 / 300 Ancef 2,000 MG In 200 / 200 Dextrose 5% 100 ML @ 200 mls/hr IVPB Q8HR AMBER Rx#: [id number] Rocephin 1,000 MG In 100 / 100 Dextrose 5% (Minibag+) 100 ML 100 ML @ 200 mls/ hr IVPB Q12HR AMEBR Rx#: [id number] Oral 100 / 100 Output: Estimated Blood Loss 100 / 100 Catheter 100 / 100 Other: Meal Breakfast Percent of Meal Consumed 100% Blood Glucose* 93 121 128 - Labs CBC & BMP: 11/27/16 05:45 11/27/16 04:43 Labs: Abnormal lab results RBC 2.83 M/mcL (3.82-4.97) L 11/27/16 05:45 Hgb 8.1 g/dL (11.5-15.4) L 11/27/16 05:45 Hct 26.5 % (35.3-44.9) L 11/27/16 05:45 MCHC 30.6 g/dL (31.6-35.5) L 11/27/16 05:45 APTT 18.2 Seconds (26.0-36.0) L 11/27/16 04:43 POC Glucose 93 (58-89) H 11/26/16 20:58 Calcium 8.3 mg/dL (8.6-10.8) L 11/27/16 04:43 Magnesium 1.4 mg/dL (1.6-2.6) L 11/24/16 06:13 B-Natriuretic Peptide 383 pg/mL (0-100) H 11/24/16 06:13 Albumin 1.8 g/dL (3.5-5.0) L 11/23/16 18:45 Globulin 4.4 g/dL (2.4-3.5) H 11/23/16 18:45 Albumin/Globulin Ratio 0.4 (1.1-2.2) L 11/23/16 18:45 HDL Cholesterol 35 mg/dL (40-59) L 11/24/16 06:13 Urine Clarity Cloudy (Clear) A 11/24/16 04:20 Urine Blood Trace (Negative) H 11/24/16 04:20 Urine Nitrite Positive (Negative) A 11/24/16 04:20 Ur Leukocyte Esterase Large (Negative) H 11/24/16 04:20 Urine Microscopic RBC 5-15 per hpf (0-3) H 11/24/16 04:20 Urine Microscopic WBC TNTC per hpf (0-3) H 11/24/16 04:20 Ur Squamous Epith Cells Many per lpf (None-Few) H 11/24/16 04:20 Urine Bacteria Many per hpf (None-Few) H 11/24/16 04:20 Ur Culture Indicated? YES (NO) A 11/24/16 04:20 Stool Occult Blood Positive (Negative) A 11/23/16 18:45 - VTE Documentation of Mechanical Device: Venous foot pump, device Consult Discharge Plan - Plan Referrals: Al Gonzales MD [Primary Care Provider] -
[2016-11-27] MEDS: D5% in 0.45% NACL w KCl 10 MEQ/1,000 ML MLS IVC SCH (17:43)
[2016-11-27] MEDS ORDERED: *HR* Warfarin 5 MG TABLET PO ONE (18:00)
[2016-11-27] MEDS ORDERED: Insulin LISPRO 300 UNITS/3 ML VIAL SQ SCH (21:00)
[2016-11-28 05:14] LABS: Hematocrit 28.5 % (35.3-44.9); Hemoglobin 8.4 g/dL (11.5-15.4); Mean Corpuscular HGB Conc 29.5 g/dL (31.6-35.5); Mean Corpuscular Hemoglobin 27.1 pg (28.0-33.3); Mean Corpuscular Volume 91.9 fL (83.0-100.0); Mean Platelet Volume 8.8 fL (9.4-12.4); Platelet Count 273 K/mcL (140-400); Red Cell Distribution Width 14.3 % (11.5-14.5)
[2016-11-28 05:18] LABS: INR 1.1; Prothrombin Time 11.7 Seconds (9.4-12.1)
[2016-11-28] MEDS: Levothyroxine 25 MCG TABLET PO SCH (05:56)
[2016-11-28] MEDS: *HR* OxyCODONE Immed Rel 5 MG TABLET PO PRN ×2 (06:00→13:03)
[2016-11-28] MEDS: *HR* Enoxaparin 30 MG/0.3 ML SYRINGE SQ SCH ×2 (06:01→17:37)
[2016-11-28] MEDS: Insulin LISPRO 300 UNITS/3 ML VIAL SQ SCH ×3 (07:31→17:39)
[2016-11-28] MEDS: Ondansetron 4 MG/2 ML VIAL IVP PRN (09:36)
[2016-11-28] MEDS: Furosemide 40 MG TABLET PO SCH (09:41)
[2016-11-28] MEDS: *HR* Digoxin 0.125 MG TABLET PO SCH (09:41)
[2016-11-28] MEDS: Diltiazem CD (24hr) 240 MG CAPSULE PO SCH (09:41)
[2016-11-28] MEDS: Ascorbic Acid 500 MG TABLET PO SCH ×2 (09:43→21:21)
[2016-11-28] MEDS: Zinc Sulfate 220 MG CAPSULE PO SCH (09:43)
[2016-11-28] MEDS: Silver Sulfadiazine 50 GM TUBE TP SCH ×3 (09:45→21:21)
--- NOTE | 2016-11-28 12:30 | Internal Med Progress Note ---
Date of Encounter: 11/28/16 Time of Encounter: 12:28 - Assessment and plan (1) Fracture of femur Current Visit: Yes Status: Acute Assessment and plan: s/p surgery no complication Qualifiers: Encounter type: initial encounter Femur location: neck Fracture type: closed Laterality: left Qualified Code(s): S72.002A - Fracture of unspecified part of neck of left femur, initial encounter for closed fracture (2) Anemia Current Visit: Yes Status: Acute Assessment and plan: hgb stable Qualifiers: Anemia type: unspecified type Qualified Code(s): D64.9 - Anemia, unspecified (3) Closed intertrochanteric fracture of left femur Current Visit: Yes Status: Acute Assessment and plan: s/p surgery no complication Qualifiers: Encounter type: initial encounter Qualified Code(s): S72.142A - Displaced intertrochanteric fracture of left femur, initial encounter for closed fracture (4) Chronic anticoagulation Current Visit: Yes Status: Chronic Assessment and plan: coumadin resumed (5) Dementia arising in the senium and presenium Current Visit: Yes Status: Chronic Assessment and plan: chronic (6) Anemia, chronic disease Current Visit: Yes Status: Chronic Assessment and plan: stable hgb (7) Vulvar carcinoma Current Visit: Yes Status: Chronic Assessment and plan: chronic (8) HTN (hypertension) Current Visit: Yes Status: Chronic Assessment and plan: well controlled Qualifiers: Hypertension type: essential hypertension Qualified Code(s): I10 - Essential (primary) hypertension (9) HLD (hyperlipidemia) Current Visit: Yes Status: Chronic Qualifiers: Hyperlipidemia type: unspecified Qualified Code(s): E78.5 - Hyperlipidemia , unspecified (10) Type 2 diabetes mellitus Current Visit: Yes Status: Chronic Assessment and plan: chronic Qualifiers: Diabetes mellitus complication status: with unspecified complications Diabetes mellitus retirement insulin use: unspecified long term care pharmacist insulin use status Qualified Code(s): E11.8 - Type 2 diabetes mellitus with unspecified complications (11) COPD (chronic obstructive pulmonary disease) Current Visit: No Status: Chronic Qualifiers: COPD type: chronic bronchitis Chronic bronchitis type: unspecified Qualified Code(s): J42 - Unspecified chronic bronchitis (12) Chronic atrial fibrillation Current Visit: Yes Status: Chronic Assessment and plan: rate uncontrolled will give additional digoxin - Subjective Interval history: patient with hiswtory of dementia, chronic atrial fib, valvular carcinoma diabetes admitted following fall sustaining left femur fracture s/p surgery yesterday doing well no complains today in atrial fib rate 108 asked nurse to give additional digoxin 0.25 mg iv today feels better HR still RVR no chest pain sob ok - Constitutional Vitals: Temp Pulse Resp BP Pulse Ox 98.0 F 114 18 138/84 93 L 11/28/16 11:19 11/28/16 11:19 11/28/16 11:19 11/28/16 11:19 11/28/16 11:19 General appearance: Present: A&O X 1, answers questions appropriately - Eye Eye exam: Present: PERRL, conjuntiva pink, sclera anicteric Pupils: Present: PERRL - Neck Neck exam general surgery: Present: supple, trachea midline. Absent: lymphadenopathy - Respiratory Respiratory exam: Present: CTAB. Absent: accessory muscle use, rales, rhonchi, wheezes - Cardiovascular Cardiovascular exam: Present: RRR, +S1, +S2. Absent: diastolic murmur, gallop, rubs, systolic murmur - GI/Abdominal GI/Abdominal exam: Present: normal bowel sounds, soft, no peritoneal signs. Absent: distended, tenderness - Extremities Exam Extremities exam: Present: warm, radial pulses palpable and symetrical. Absent : calf tenderness, cyanotic, pedal edema Internal Medicine: Result - Labs CBC & Chem 7: 11/28/16 04:58 11/27/16 04:43 Labs: Short CBC 11/28/16 Range/Units 04:58 WBC 5.1 (4.3-11.1) K/mcL Hgb 8.4 L (11.5-15.4) g/dL Hct 28.5 L (35.3-44.9) % Plt Count 273 (140-400) K/mcL - ABG Interpretation ABG results: PT/INR, D-dimer PT 11.7 Seconds (9.4-12.1) 11/28/16 04:58 - VTE Documentation of Mechanical Device: Venous foot pump, device Consult Discharge Plan - Plan Referrals: Al Gonzales MD [Primary Care Provider] -
[2016-11-28] MEDS ORDERED: *HR* Digoxin 0.5 MG/2 ML AMPUL IVP ONE ×2 (12:34→16:36)
[2016-11-28] MEDS ORDERED: Furosemide 40 MG/4 ML VIAL IVP ONE (13:09)
--- NOTE | 2016-11-28 17:19 | Orthopedics Progress Note ---
Date of Encounter: 11/28/16 Time of Encounter: 17:15 Subjective Principal diagnosis: Intertrochanteric fracture left hip Interval history: 11/25/2016. Patient is seen in follow-up regarding her left hip fracture. Pain management has been good. Vital signs are stable. Patient is afebrile. Exam is unchanged. Hemoglobin is 8.1. Platelet count remains 244. PTT is 14.1 with an INR of 1.3. Urine culture is growing a gram-negative kristine. Patient has been on ceftriaxone. Impression: Intertrochanteric fracture left hip Plan: We will proceed with intramedullary nailing of her left hip tomorrow. Informed consent has been obtained. Preoperative orders have been written. 11/27/2016. Patient is postop day #1 from intramedullary nailing of her left hip. She is having less pain today than preop. Vital signs are stable. She does have a pulse of about 110. History of chronic A. fib. Afebrile. Dressings show only minor serous spotting. Leg is somewhat edematous. Hemoglobin is 8.1, stable. Platelet count normal. Impression: POD #1 IM nailing left hip, orthopedic status stable Recommendation: Can ambulate patient as tolerated. We will continue to monitor. environmental services attendant for discharge planning process. 11/28/2016. Patient states she is feeling better. She denies any arm pain but has noticed increased swelling in the right arm just recently. Vital signs are stable with a pulse of just over 100. She is afebrile. Dressings are clean and dry. Right upper extremity is markedly edematous and somewhat ecchymotic from the elbow distal. Neurosensory exam is intact. Hemoglobin is stable at 8.4. Platelets remained normal at 273. White count is normal at 5.1. A recently completed chest x-ray shows no overt failure nor infiltrative process. Right upper extremity ultrasound results are pending. Impression: POD #2 IM nailing left hip, orthopedic status stable. Recommendation: as noted previously patient can ambulate as tolerated. Patient is currently on Lovenox and warfarin until her pro time is appropriate. No evidence of a significant bleed with these medications in use. Objective Vital signs: Vital Signs Temp Pulse Resp BP Pulse Ox 11/28/16 14:19 98.2 F 104 16 134/78 95 11/28/16 11:19 98.0 F 114 18 138/84 93 L 11/28/16 09:50 95 11/28/16 06:48 97.9 F 110 18 123/78 94 L 11/28/16 03:20 100.2 F H 104 19 145/63 93 L 11/27/16 23:04 99.2 F 103 19 145/74 94 L 11/27/16 20:32 98.9 F 102 22 150/83 93 L Intake and Output 11/28/16 11/28/16 11/28/16 07:59 15:59 23:59 Intake Total 340 / 340 Balance 340 / 340 Intake: IV Fluids 100 / 100 Rocephin 1,000 MG In 100 / 100 Dextrose 5% (Minibag+) 100 ML 100 ML @ 200 mls/ hr IVPB Q12HR AMBER Rx#: [id number] Oral 240 / 240 Other: Meal Breakfast Percent of Meal Consumed 0% # Urine Diapers 1 Blood Glucose* 109 101 97 - Labs CBC & BMP: 11/28/16 04:58 11/27/16 04:43 Labs: Abnormal lab results RBC 3.10 M/mcL (3.82-4.97) L 11/28/16 04:58 Hgb 8.4 g/dL (11.5-15.4) L 11/28/16 04:58 Hct 28.5 % (35.3-44.9) L 11/28/16 04:58 MCH 27.1 pg (28.0-33.3) L 11/28/16 04:58 MCHC 29.5 g/dL (31.6-35.5) L 11/28/16 04:58 MPV 8.8 fL (9.4-12.4) L 11/28/16 04:58 APTT 18.2 Seconds (26.0-36.0) L 11/27/16 04:43 POC Glucose 97 (58-89) H 11/28/16 16:29 Calcium 8.3 mg/dL (8.6-10.8) L 11/27/16 04:43 B-Natriuretic Peptide 309 pg/mL (0-100) H 11/28/16 14:33 Albumin 1.8 g/dL (3.5-5.0) L 11/23/16 18:45 Globulin 4.4 g/dL (2.4-3.5) H 11/23/16 18:45 Albumin/Globulin Ratio 0.4 (1.1-2.2) L 11/23/16 18:45 HDL Cholesterol 35 mg/dL (40-59) L 11/24/16 06:13 Urine Clarity Cloudy (Clear) A 11/24/16 04:20 Urine Blood Trace (Negative) H 11/24/16 04:20 Urine Nitrite Positive (Negative) A 11/24/16 04:20 Ur Leukocyte Esterase Large (Negative) H 11/24/16 04:20 Urine Microscopic RBC 5-15 per hpf (0-3) H 11/24/16 04:20 Urine Microscopic WBC TNTC per hpf (0-3) H 11/24/16 04:20 Ur Squamous Epith Cells Many per lpf (None-Few) H 11/24/16 04:20 Urine Bacteria Many per hpf (None-Few) H 11/24/16 04:20 Ur Culture Indicated? YES (NO) A 11/24/16 04:20 Stool Occult Blood Positive (Negative) A 11/23/16 18:45 - VTE Documentation of Mechanical Device: Venous foot pump, device Consult Discharge Plan - Plan Referrals: Al Gonzales MD [Primary Care Provider] -
[2016-11-28] MEDS: *HR* Warfarin 3 MG TABLET PO SCH (17:37)
[2016-11-28] MEDS: Furosemide 40 MG/4 ML VIAL IVP SCH (21:21)
[2016-11-28] MEDS: *HR* HYDROmorphone (PF) 1 MG/ML SYRINGE IVP PRN (23:13)
[2016-11-29] MEDS: Ipratropium/Albuterol Neb 3 ML IH PRN ×2 (05:10→19:54)
[2016-11-29] MEDS: *HR* Enoxaparin 30 MG/0.3 ML SYRINGE SQ SCH ×2 (05:40→17:47)
[2016-11-29] MEDS: Levothyroxine 25 MCG TABLET PO SCH (05:40)
[2016-11-29] MEDS: *HR* HYDROmorphone (PF) 1 MG/ML SYRINGE IVP PRN ×3 (05:46→22:40)
[2016-11-29 05:53] LABS: Hematocrit 32.3 % (35.3-44.9); Hemoglobin 9.7 g/dL (11.5-15.4); Mean Corpuscular Hemoglobin 27.7 pg (28.0-33.3); Mean Corpuscular Volume 92.3 fL (83.0-100.0); Platelet Count 323 K/mcL (140-400); Red Cell Distribution Width 14.1 % (11.5-14.5)
[2016-11-29 06:01] LABS: INR 1.1; Prothrombin Time 11.4 Seconds (9.4-12.1)
[2016-11-29 06:05] LABS: BUN/Creatinine Ratio 11 (6-26); Blood Urea Nitrogen 8 mg/dL (7-20); Calcium 8.4 mg/dL (8.6-10.8); Carbon Dioxide 28 mEq/L (19-29); Chloride 98 mEq/L (98-109); Glucose 101 mg/dL (70-99); Osmolality,Calculated 282 (280-300); Potassium 3.5 mEq/L (3.5-4.5); Sodium 137 mEq/L (136-145); eGFR For African Americans > 60 (> 60); eGFR For Non-African Americans > 60 (> 60)
[2016-11-29] MEDS: Insulin LISPRO 300 UNITS/3 ML VIAL SQ SCH ×3 (07:30→16:23)
[2016-11-29] MEDS: Zinc Sulfate 220 MG CAPSULE PO SCH (07:41)
[2016-11-29] MEDS: Furosemide 40 MG TABLET PO SCH (07:41)
[2016-11-29] MEDS: Diltiazem CD (24hr) 240 MG CAPSULE PO SCH (07:41)
[2016-11-29] MEDS: Furosemide 40 MG/4 ML VIAL IVP SCH ×2 (07:42→21:49)
[2016-11-29] MEDS: Ascorbic Acid 500 MG TABLET PO SCH ×2 (07:42→21:50)
[2016-11-29] MEDS: *HR* Digoxin 0.125 MG TABLET PO SCH (07:42)
[2016-11-29] MEDS: Ondansetron 4 MG/2 ML VIAL IVP PRN ×2 (07:44→23:02)
[2016-11-29] MEDS: Silver Sulfadiazine 50 GM TUBE TP SCH ×3 (09:59→21:50)
[2016-11-29] MEDS ORDERED: *HR* Metoprolol 5 MG/5 ML VIAL IVP ONE (10:39)
--- NOTE | 2016-11-29 15:13 | Venous Imaging Report ---
UE Venous Duplex Patient Name:Danuta Hauser Order Number:[id number] Procedure Date:11/28/2016 Date:1935ge:80 yrs Gender:Female Location:[facility] Room #: 3NE34 Cloth Cutting Machine Operator:Koki Vyas Referring MD:Jose Rafael Gardner MD bundle packer:DO Chuy Murphy MD:Teodoro Kruse MD Primary Indications:Swelling Secondary Indications: Risk Factors Yes/No Hx of Chemotherapy Impressions: Normal bilateral lower extremity deep and superficial venous exam. Findings Prior Study: No prior study available for comparison. Upper Extremity Venous Duplex Side Vein Compress Spontaneous Flow Augment Right Jugular Normal Yes Phasic Yes Right Subclavian Normal Yes Phasic Yes Right Axillary Normal Yes Phasic Yes Right Brachial Normal Yes Phasic Yes Right Cephalic Normal Yes Phasic Yes Right Cephalic Upper Arm Normal Yes Phasic Yes Right Cephalic Forearm Normal Yes Phasic Yes Right Basilic Normal Yes Phasic Yes Right Basilic Upper Arm Normal Yes Phasic Yes Right Basilic Forearm Normal Yes Phasic Yes Right Radial Normal Yes Phasic Yes Right Ulnar Normal Yes Phasic Yes Left Subclavian Normal Yes Phasic Yes Updated by Teodoro Kruse MD on 11/29/2016 3:08:47 PM electronically signed on 11/29/2016 3:09:06 PM with status of Final
[2016-11-29] MEDS ORDERED: *HR* Digoxin 0.25 MG TABLET PO ONE (15:16)
--- NOTE | 2016-11-29 15:19 | Internal Med Progress Note ---
Date of Encounter: 11/29/16 Time of Encounter: 15:16 - Assessment and plan (1) Fracture of femur Current Visit: Yes Status: Acute Assessment and plan: s/p surgery no complication Qualifiers: Encounter type: initial encounter Femur location: neck Fracture type: closed Laterality: left Qualified Code(s): S72.002A - Fracture of unspecified part of neck of left femur, initial encounter for closed fracture (2) Anemia Current Visit: Yes Status: Acute Assessment and plan: chronic Qualifiers: Anemia type: unspecified type Qualified Code(s): D64.9 - Anemia, unspecified (3) Closed intertrochanteric fracture of left femur Current Visit: Yes Status: Acute Assessment and plan: s/p surgery no complication Qualifiers: Encounter type: initial encounter Qualified Code(s): S72.142A - Displaced intertrochanteric fracture of left femur, initial encounter for closed fracture (4) Chronic anticoagulation Current Visit: Yes Status: Chronic (5) Dementia arising in the senium and presenium Current Visit: Yes Status: Chronic Assessment and plan: chronic (6) Anemia, chronic disease Current Visit: Yes Status: Chronic (7) Vulvar carcinoma Current Visit: Yes Status: Chronic Assessment and plan: chronic (8) HTN (hypertension) Current Visit: Yes Status: Chronic Assessment and plan: well controlled Qualifiers: Hypertension type: essential hypertension Qualified Code(s): I10 - Essential (primary) hypertension (9) HLD (hyperlipidemia) Current Visit: Yes Status: Chronic Qualifiers: Hyperlipidemia type: unspecified Qualified Code(s): E78.5 - Hyperlipidemia , unspecified (10) Type 2 diabetes mellitus Current Visit: Yes Status: Chronic Assessment and plan: on sliding scale Qualifiers: Diabetes mellitus complication status: with unspecified complications Diabetes mellitus terminal worker insulin use: unspecified half-way insulin use status Qualified Code(s): E11.8 - Type 2 diabetes mellitus with unspecified complications (11) COPD (chronic obstructive pulmonary disease) Current Visit: No Status: Chronic Qualifiers: COPD type: chronic bronchitis Chronic bronchitis type: unspecified Qualified Code(s): J42 - Unspecified chronic bronchitis (12) Chronic atrial fibrillation Current Visit: Yes Status: Chronic Assessment and plan: rate remains RVR and patient in chf - Subjective Interval history: patient with hiswtory of dementia, chronic atrial fib, valvular carcinoma diabetes admitted following fall sustaining left femur fracture s/p surgery yesterday doing well no complains today in atrial fib rate 108 asked nurse to give additional digoxin 0.25 mg iv today feels better HR still RVR no chest pain sob ok today sya ok but appears lethargic HR 120-130 denies chest pain exam bilat rales and wheezing. arm swelling ultrasound negative for dvt - Constitutional Vitals: Temp Pulse Resp BP Pulse Ox 99.1 F 120 18 117/81 94 L 11/29/16 10:49 11/29/16 10:49 11/29/16 10:49 11/29/16 10:49 11/29/16 10:49 General appearance: Present: A&O X 1, answers questions appropriately - Eye Eye exam: Present: PERRL, conjuntiva pink, sclera anicteric Pupils: Present: PERRL - Neck Neck exam general surgery: Present: supple, trachea midline. Absent: lymphadenopathy - Respiratory Respiratory exam: Present: decreased breath sounds, rhonchi, wheezes - Cardiovascular Cardiovascular exam: Present: irregular rhythm, tachycardia - GI/Abdominal GI/Abdominal exam: Present: normal bowel sounds, soft, no peritoneal signs. Absent: distended, tenderness - Expanded Upper Extremities Exam Forearm wrist exam: Present: swelling Internal Medicine: Result - Labs CBC & Chem 7: 11/29/16 05:20 11/29/16 05:20 Labs: Short CBC 11/29/16 Range/Units 05:20 WBC 5.9 (4.3-11.1) K/mcL Hgb 9.7 L (11.5-15.4) g/dL Hct 32.3 L (35.3-44.9) % Plt Count 323 (140-400) K/mcL BMP 11/29/16 05:20 Sodium 137 Potassium 3.5 Chloride 98 Carbon Dioxide 28 BUN 8 Creatinine 0.73 Glucose 101 H Calcium 8.4 L - ABG Interpretation ABG results: PT/INR, D-dimer PT 11.4 Seconds (9.4-12.1) 11/29/16 05:20 - Impressions Impressions Chest X-Ray 11/28/16 12:54 IMPRESSION: Cardiomegaly and central vascular congestion. No overt failure or significant pleural fluid at this time. D/ / Nikhil Doty MD / Nikhil Doty MD Interpreting Provider: Nikhil Doty MD - VTE Documentation of Mechanical Device: Venous foot pump, device Consult Discharge Plan - Plan Referrals: Al Gonzales MD [Primary Care Provider] -
[2016-11-29] MEDS: *HR* Warfarin 3 MG TABLET PO SCH (17:47)
[2016-11-29] MEDS ORDERED: *HR* Warfarin 5 MG TABLET PO SCH (18:00)
[2016-11-30] MEDS: *HR* OxyCODONE Immed Rel 5 MG TABLET PO PRN (03:34)
[2016-11-30 05:43] LABS: Prothrombin Time 11.3 Seconds (9.4-12.1)
[2016-11-30] MEDS: *HR* Enoxaparin 30 MG/0.3 ML SYRINGE SQ SCH (06:50)
[2016-11-30] MEDS: Levothyroxine 25 MCG TABLET PO SCH (06:51)
[2016-11-30] MEDS: Insulin LISPRO 300 UNITS/3 ML VIAL SQ SCH ×3 (08:14→18:09)
[2016-11-30] MEDS: Furosemide 40 MG TABLET PO SCH (08:18)
[2016-11-30] MEDS: Diltiazem CD (24hr) 240 MG CAPSULE PO SCH (08:19)
[2016-11-30] MEDS: Ascorbic Acid 500 MG TABLET PO SCH ×2 (08:20→20:18)
[2016-11-30] MEDS: Furosemide 40 MG/4 ML VIAL IVP SCH ×2 (08:20→20:18)
[2016-11-30] MEDS: Zinc Sulfate 220 MG CAPSULE PO SCH (08:20)
[2016-11-30] MEDS: *HR* Digoxin 0.125 MG TABLET PO SCH (08:22)
[2016-11-30] MEDS: Silver Sulfadiazine 50 GM TUBE TP SCH ×3 (08:24→20:18)
--- NOTE | 2016-11-30 10:28 | Internal Med Progress Note ---
Date of Encounter: 11/30/16 Time of Encounter: 10:26 - Assessment and plan (1) Fracture of femur Current Visit: Yes Status: Acute Assessment and plan: s/p surgery no compication Qualifiers: Encounter type: initial encounter Femur location: neck Fracture type: closed Laterality: left Qualified Code(s): S72.002A - Fracture of unspecified part of neck of left femur, initial encounter for closed fracture (2) Anemia Current Visit: Yes Status: Acute Assessment and plan: no active bleeding Qualifiers: Anemia type: unspecified type Qualified Code(s): D64.9 - Anemia, unspecified (3) Closed intertrochanteric fracture of left femur Current Visit: Yes Status: Acute Assessment and plan: s/p surgery Qualifiers: Encounter type: initial encounter Qualified Code(s): S72.142A - Displaced intertrochanteric fracture of left femur, initial encounter for closed fracture (4) Chronic anticoagulation Current Visit: Yes Status: Chronic Assessment and plan: pharmacy managing coumadin still subtherapeutic discuss with pharmacy will start heparin and may be increase coumadin dosing (5) Dementia arising in the senium and presenium Current Visit: Yes Status: Chronic Assessment and plan: chronic (6) Anemia, chronic disease Current Visit: Yes Status: Chronic (7) Vulvar carcinoma Current Visit: Yes Status: Chronic (8) HTN (hypertension) Current Visit: Yes Status: Chronic Assessment and plan: well controlled Qualifiers: Hypertension type: essential hypertension Qualified Code(s): I10 - Essential (primary) hypertension (9) HLD (hyperlipidemia) Current Visit: Yes Status: Chronic Qualifiers: Hyperlipidemia type: unspecified Qualified Code(s): E78.5 - Hyperlipidemia , unspecified (10) Type 2 diabetes mellitus Current Visit: Yes Status: Chronic Assessment and plan: chronic on sliding scale Qualifiers: Diabetes mellitus complication status: with unspecified complications Diabetes mellitus snf insulin use: unspecified snf insulin use status Qualified Code(s): E11.8 - Type 2 diabetes mellitus with unspecified complications (11) COPD (chronic obstructive pulmonary disease) Current Visit: No Status: Chronic Assessment and plan: with mucous and wheezing discussed with nurse about suction Qualifiers: COPD type: chronic bronchitis Chronic bronchitis type: unspecified Qualified Code(s): J42 - Unspecified chronic bronchitis (12) Chronic atrial fibrillation Current Visit: Yes Status: Chronic Assessment and plan: with RVR and chf cardiology consulted evaluation in progress - Subjective Interval history: patient with hiswtory of dementia, chronic atrial fib, valvular carcinoma diabetes admitted following fall sustaining left femur fracture s/p surgery yesterday doing well no complains today in atrial fib rate 108 asked nurse to give additional digoxin 0.25 mg iv today feels better HR still RVR no chest pain sob ok today sya ok but appears lethargic HR 120-130 denies chest pain exam bilat rales and wheezing. arm swelling ultrasound negative for dvt today says she is doing well hr still high no chest pain exam bilat rhonchi more of mucus congestion just ordered bnp cardiology evaluation pending - Constitutional Vitals: Temp Pulse Resp BP Pulse Ox 98.7 F 120 18 140/72 84 L 11/30/16 07:45 11/30/16 07:45 11/30/16 07:45 11/30/16 07:45 11/30/16 07:45 General appearance: Present: A&O X 1, answers questions appropriately - Head Head exam: Present: atraumatic, normocephalic - Eye Eye exam: Present: PERRL, conjuntiva pink, sclera anicteric Pupils: Present: PERRL - Neck Neck exam general surgery: Present: supple, trachea midline. Absent: lymphadenopathy - Respiratory Respiratory exam: Present: rhonchi, wheezes - Cardiovascular Cardiovascular exam: Present: irregular rhythm, tachycardia - Extremities Exam Extremities exam: Present: warm, radial pulses palpable and symetrical. Absent : calf tenderness, cyanotic, pedal edema Internal Medicine: Result - Labs CBC & Chem 7: 11/29/16 05:20 11/29/16 05:20 - ABG Interpretation ABG results: PT/INR, D-dimer PT 11.3 Seconds (9.4-12.1) 11/30/16 05:14 - VTE Documentation of Mechanical Device: Intermittent pneumatic compression device Consult Discharge Plan - Plan Referrals: Al Gonzales MD [Primary Care Provider] -
--- NOTE | 2016-11-30 10:34 | Cardiology Consult Note ---
<Shara Melo - Last Filed: 11/30/16 16:28> Date of Encounter: 11/30/16 Time of Encounter: 10:00 Assessment and Plan (1) Atrial fibrillation with RVR Current Visit: Yes Status: Acute Patient with known afib not anticoagulated due to history of GI bleed, ASA only for anticoagulation Patient is s/p Left femur repair 11/26/16 Patient noted to have HR 120s-130s two days post-operatively 24 hour telemetry: avg 114, afib RVR, min 72, max 152, long pause 1.6, 5 beat run non-sustained V at 05:26 (11/30/16) ECHO: 08/16/15 LVEF 55%, mild LVH, mild LV diastolic dysfunction, moderate bi- atrial enlargement, no pulm HTN CATH: 2008 without flow limiting lesions Event monitor 09/11/16- demonstrates afib with rate 140 EKG 11/23/16 afib with rate 63 Patient currently on Cardizem 240mg daily, digoxin 0.125mg daily Plan: Repeat ECHO, pending Restart Labetalol 50mg BID Previously seen in Cardiology office July, notes reviewed Patient with previous history of GI bleed on coumadin Now presents with fall We recommend against use of coumadin due to risk of falls, GI Bleed, and due to pt currently under Hospice care Recommend ASA only (2) Congestive heart failure (CHF) Current Visit: Yes Status: Acute Patient with previous ECHO demosntrating mild LV diastolic dysfunction CXR demonstrated cardiomegaly with central vascular congestion Given physical exam findings of bilateral rales, concern for worsening heart failure Repeat ECHO, pending Continue IV diuresis with monitoring of renal function Qualifiers: Congestive heart failure type: diastolic Congestive heart failure chronicity: acute on chronic Qualified Code(s): I50.33 - Acute on chronic diastolic (congestive) heart failure (3) HTN (hypertension) Current Visit: Yes Status: Chronic Stable at this time Continue to monitor Qualifiers: Hypertension type: essential hypertension Qualified Code(s): I10 - Essential (primary) hypertension (4) Edema Current Visit: Yes Status: Acute Right arm with 2+ pitting edema Venous duplex 11/28/16 noted no DVT present Qualifiers: Edema type: localized Qualified Code(s): R60.0 - Localized edema Discussion w patient/family: The assessment and plan as outlined above was discussed with the patient and/or family members who expressed understanding and agreement. All questions were answered. Thank you for involving us in the care of your patient. Please call with any questions. History of Present Illness Consult date: 11/30/16 Consult reason: Afib RVR Chief complaint: Afib RVR History of present illness: Ms. Hauser is a 80 year old female s/p day # [address] left femur repair per Dr. Cordoba. Patient developed afib RVR two days post-operatively. A dose of 2.5mg Lopressor given 11/29/16. A dose of 0.25mg IV digoxin was given 11/29/16. Currently, patient is in afib with rate in 70s. Patient admits wheezing today and dyspnea. She states that she use 3L of home O2, but is demanding 5L at this time. Admits right arm swelling greater than right. She denies chest pain , racing heart. Patient is a hospice patient and recently moved to a alf 4 weeks ago. Past Med Surg Social Fam HX - Past Medical History Medical history: arthritis, atrial fibrillation, cancer, CHF (LVEF 30-40%.), COPD (BEAR. Continuous O2 supplementation.), dementia, diabetes, GERD, GI bleed, hyperlipidemia, hypertension, malignancy (Vulvar Ca s/p radiation tx.), osteoporosis, renal disease, thyroid disease, other (anemia of chronic illness.) Psychiatric history: no psych history, other - Past Surgical History Surgical History: cholecystectomy, hysterectomy, GISSEL/BSO, other (Nephrectomy. Colonoscopy. EGD.) - Social History Smoking Status: Former smoker Smokeless Tobacco Status: No Alcohol use: none Drug use: none - Family History Mother Living Status: Hx Family Cardiac Disorders: Yes Hx Family Respiratory Disorders: Yes Hx Family Cancer: Yes Hx Family Medical Disorders: Yes Medications and Allergies Bisacodyl [Dulcolax] 10 mg RC WE 11/23/16 [History] Digoxin [Lanoxin] 0.125 mg PO DAILY 11/23/16 [History] Diltiazem CD (24hr) [Cardizem CD] 180 mg PO DAILY 11/23/16 [History] Docusate [Colace] 100 mg PO BID 11/23/16 [History] Furosemide [Lasix] 80 mg PO DAILY 11/23/16 [History] Insulin Degludec [Tresiba Flextouch U-100] 10 unit SQ DAILY 11/23/16 [History] Insulin Human Regular [HumuLIN R] 2 - 14 unit SQ TID 11/23/16 [History] Ipratropium/Albuterol Neb [Duoneb] 3 ml IH Q6HR PRN 11/23/16 [History] Levothyroxine [Synthroid] 25 mcg PO DAILY 11/23/16 [History] Oxycodone HCl 10 mg PO QID PRN 11/23/16 [History] Pantoprazole Sodium [Protonix] 40 mg PO DAILY 11/23/16 [History] Potassium Chloride [K-Tab ER] 20 meq PO DAILY 11/23/16 [History] Silver Sulfadiazine Cream [Silvadene] 1 appl TP TID 11/23/16 [History] Warfarin [Coumadin] 3 mg PO HS 11/23/16 [History] Allergies nifedipine [From Procardia] Allergy (Verified 07/14/16 10:44) See Comments All Systems Review: A 10-system review of systems was performed and is negative for pertinent findings except as documented above in the HPI. Physical Examination Vital Signs, Last 4 Hours Temp Pulse Resp BP Pulse Ox 11/30/16 07:45 98.7 F 120 18 140/72 84 L 11/30/16 06:42 99.7 F H 104 16 150/73 89 L General: Conversant, No Apparent Distress HEENT: Atraumatic, Normocephaly, Mucus Membranes Moist Neck: No JVD, Normal carotid pulses Cardiac: Normal S1 and S2, Other (Irregular rhythm) Lungs: Other (Crackles to bilateral lung bases; Expiratory wheeze in bilateral upper lung bates) Neuro: Alert and responsive, No focal deficits noted Abdomen: Soft, Non-Tender Musculoskeletal: No Chest Wall Tenderness Extremities: No Clubbing, No Cyanosis, Normal Pulses, Other (Right arm with 2+ pitting edema. No edema to left arm. No edema to bilateral lower extremities.) Results 11/30/16 11:44 11/29/16 05:20 Lab Results 11/30/16 05:14 INR 1.0 - Imaging and Cardiology Chest Xray: report reviewed, image reviewed Echo: report reviewed Holter: report reviewed - EKG Interpretation EKG results cardiology: personally reviewed, normal ECG, other (Afib) Consult Discharge Plan - Plan Referrals: Al Gonzales MD [Primary Care Provider] - <Nay Bardales - Last Filed: 11/30/16 17:36> Assessment and Plan Discussion w patient/family: The assessment and plan as outlined above was discussed with the patient and/or family members who expressed understanding and agreement. All questions were answered. Thank you for involving us in the care of your patient. Please call with any questions. History of Present Illness History of present illness: Ms. Hauser is a 80 year old female All Systems Review: A 10-system review of systems was performed and is negative for pertinent findings except as documented above in the HPI. Physical Examination Vital Signs, Last 4 Hours Temp Pulse Resp BP Pulse Ox 11/30/16 14:49 99.1 F 123 18 129/86 96 Results 11/30/16 11:44 11/29/16 05:20 Lab Results 11/30/16 11/30/16 11/30/16 05:14 05:14 11:44 WBC 8.5 Hgb 10.1 L Hct 33.6 L Plt Count 377 INR 1.0 APTT B-Natriuretic Peptide 161 H 11/30/16 11:44 WBC Hgb Hct Plt Count INR 1.1 APTT 19.0 L B-Natriuretic Peptide - Attending Attestation I examined this patient and my medical decision-making was reviewed with the COOK SAUCE/PA/Advanced Practice Nurse/Resident Physician. I agree with the documented findings, disposition and treatment plan. Ms. Hauser has known AFIB and had developed RVR post operatively and in setting of low grade fever. When she was seen as an outpatient in July 2016 , she was also on lopressor 50mg BID which we will restart. She will continue cardizem 240mg and Digoxin. We will observe her and order echo. Otherwise, in regards to anticoagulation, she was on aspirin only due to history of GIB. She is presently on coumadin which we would not recommend for AFIB given falling and history of GIB. She should remain on aspirin from our standpoint.
[2016-11-30] MEDS: Ipratropium/Albuterol Neb 3 ML IH PRN ×2 (11:21→20:53)
[2016-11-30] MEDS ORDERED: *HR* Heparin 5,000 UNIT/ML VIAL IVP PRN ×2 (11:26)
[2016-11-30] MEDS ORDERED: *HR* Heparin 5,000 UNIT/ML VIAL IVP ONE (11:26)
[2016-11-30] MEDS ORDERED: Heparin 25,000 UNIT/500 ML D5W 25,000 UNIT/500 ML MLS IVC SCH (11:30)
[2016-11-30 11:55] LABS: Hematocrit 33.6 % (35.3-44.9); Hemoglobin 10.1 g/dL (11.5-15.4); Mean Corpuscular HGB Conc 30.1 g/dL (31.6-35.5); Mean Corpuscular Hemoglobin 27.7 pg (28.0-33.3); Mean Corpuscular Volume 92.1 fL (83.0-100.0); Mean Platelet Volume 8.9 fL (9.4-12.4); Platelet Count 377 K/mcL (140-400); Red Blood Count 3.65 M/mcL (3.82-4.97); Red Cell Distribution Width 14.2 % (11.5-14.5)
[2016-11-30 12:01] LABS: INR 1.1; Prothrombin Time 11.6 Seconds (9.4-12.1)
[2016-11-30] MEDS ORDERED: *HR* Warfarin 5 MG TABLET PO ONE (18:00)
--- NOTE | 2016-11-30 19:42 | Orthopedics Progress Note ---
Date of Encounter: 11/30/16 Time of Encounter: 19:36 Subjective Principal diagnosis: Intertrochanteric fracture left hip Interval history: 11/25/2016. Patient is seen in follow-up regarding her left hip fracture. Pain management has been good. Vital signs are stable. Patient is afebrile. Exam is unchanged. Hemoglobin is 8.1. Platelet count remains 244. PTT is 14.1 with an INR of 1.3. Urine culture is growing a gram-negative kristine. Patient has been on ceftriaxone. Impression: Intertrochanteric fracture left hip Plan: We will proceed with intramedullary nailing of her left hip tomorrow. Informed consent has been obtained. Preoperative orders have been written. 11/27/2016. Patient is postop day #1 from intramedullary nailing of her left hip. She is having less pain today than preop. Vital signs are stable. She does have a pulse of about 110. History of chronic A. fib. Afebrile. Dressings show only minor serous spotting. Leg is somewhat edematous. Hemoglobin is 8.1, stable. Platelet count normal. Impression: POD #1 IM nailing left hip, orthopedic status stable Recommendation: Can ambulate patient as tolerated. We will continue to monitor. social human services assistants for discharge planning process. 11/28/2016. Patient states she is feeling better. She denies any arm pain but has noticed increased swelling in the right arm just recently. Vital signs are stable with a pulse of just over 100. She is afebrile. Dressings are clean and dry. Right upper extremity is markedly edematous and somewhat ecchymotic from the elbow distal. Neurosensory exam is intact. Hemoglobin is stable at 8.4. Platelets remained normal at 273. White count is normal at 5.1. A recently completed chest x-ray shows no overt failure nor infiltrative process. Right upper extremity ultrasound results are pending. Impression: POD #2 IM nailing left hip, orthopedic status stable. Recommendation: as noted previously patient can ambulate as tolerated. Patient is currently on Lovenox and warfarin until her pro time is appropriate. No evidence of a significant bleed with these medications in use. 11/30/2016. Patient is postop day #4 IM nailing left hip. No complaints referable to the left hip. Vital signs with variable tachycardia currently about 90. He is afebrile at 99.1. Hip and suggest dressings remain clean and dry. Right upper extremity appears to be somewhat improved with regards to swelling. Hemoglobin stable at 10.1. White blood cell count is normal platelet count normal. Impression: POD #4 IM nailing left hip, orthopedic status remained stable. Recommendation: Can ambulate as tolerated. Orthopedic status is stable. We will follow as needed. Objective Vital signs: Vital Signs Temp Pulse Resp BP Pulse Ox 11/30/16 14:49 99.1 F 123 18 129/86 96 11/30/16 11:30 98.7 F 96 18 133/79 92 L 11/30/16 11:22 20 91 L 11/30/16 07:45 98.7 F 120 18 140/72 84 L 11/30/16 06:42 99.7 F H 104 16 150/73 89 L 11/30/16 03:50 97.9 F 110 16 138/74 92 L 11/30/16 00:18 97.9 F 117 18 138/52 93 L 11/29/16 21:56 95 11/29/16 20:22 98 F 102 18 130/73 94 L 11/29/16 19:54 18 94 L Intake and Output 11/30/16 11/30/16 11/30/16 07:59 15:59 23:59 Output Total 400 / 400 300 / 300 Balance -400 / -400 -300 / -300 Output: Catheter 400 / 400 300 / 300 Other: Blood Glucose* 95 123 119 - Labs CBC & BMP: 11/30/16 11:44 11/29/16 05:20 Labs: Abnormal lab results RBC 3.65 M/mcL (3.82-4.97) L 11/30/16 11:44 Hgb 10.1 g/dL (11.5-15.4) L 11/30/16 11:44 Hct 33.6 % (35.3-44.9) L 11/30/16 11:44 MCH 27.7 pg (28.0-33.3) L 11/30/16 11:44 MCHC 30.1 g/dL (31.6-35.5) L 11/30/16 11:44 MPV 8.9 fL (9.4-12.4) L 11/30/16 11:44 APTT 19.0 Seconds (26.0-36.0) L 11/30/16 11:44 Glucose 101 mg/dL (70-99) H 11/29/16 05:20 POC Glucose 129 (58-89) H 11/29/16 19:57 Calcium 8.4 mg/dL (8.6-10.8) L 11/29/16 05:20 B-Natriuretic Peptide 161 pg/mL (0-100) H 11/30/16 05:14 Albumin 1.8 g/dL (3.5-5.0) L 11/23/16 18:45 Globulin 4.4 g/dL (2.4-3.5) H 11/23/16 18:45 Albumin/Globulin Ratio 0.4 (1.1-2.2) L 11/23/16 18:45 HDL Cholesterol 35 mg/dL (40-59) L 11/24/16 06:13 Urine Clarity Cloudy (Clear) A 11/24/16 04:20 Urine Blood Trace (Negative) H 11/24/16 04:20 Urine Nitrite Positive (Negative) A 11/24/16 04:20 Ur Leukocyte Esterase Large (Negative) H 11/24/16 04:20 Urine Microscopic RBC 5-15 per hpf (0-3) H 11/24/16 04:20 Urine Microscopic WBC TNTC per hpf (0-3) H 11/24/16 04:20 Ur Squamous Epith Cells Many per lpf (None-Few) H 11/24/16 04:20 Urine Bacteria Many per hpf (None-Few) H 11/24/16 04:20 Ur Culture Indicated? YES (NO) A 11/24/16 04:20 Stool Occult Blood Positive (Negative) A 11/23/16 18:45 - VTE Documentation of Mechanical Device: Intermittent pneumatic compression device Consult Discharge Plan - Plan Referrals: Al Gonzales MD [Primary Care Provider] -
[2016-12-01] MEDS: Levothyroxine 25 MCG TABLET PO SCH (05:42)
[2016-12-01 06:22] LABS: Prothrombin Time 11.3 Seconds (9.4-12.1)
[2016-12-01] MEDS: Ipratropium/Albuterol Neb 3 ML IH PRN (06:25)
[2016-12-01] MEDS: Insulin LISPRO 300 UNITS/3 ML VIAL SQ SCH ×3 (08:46→17:56)
[2016-12-01] MEDS: Ascorbic Acid 500 MG TABLET PO SCH ×2 (08:53→21:22)
[2016-12-01] MEDS: Diltiazem CD (24hr) 240 MG CAPSULE PO SCH (08:53)
[2016-12-01] MEDS: *HR* Digoxin 0.125 MG TABLET PO SCH (08:53)
[2016-12-01] MEDS: Furosemide 40 MG/4 ML VIAL IVP SCH ×3 (08:53→21:34)
[2016-12-01] MEDS: Zinc Sulfate 220 MG CAPSULE PO SCH (08:53)
[2016-12-01] MEDS: Silver Sulfadiazine 50 GM TUBE TP SCH ×3 (08:54→21:30)
[2016-12-01 09:52] LABS: Basophils % 0.3 %; Eosinophils # 0.1 K/mcL (0.0-0.6); Eosinophils % 0.7 %; Hematocrit 32.7 % (35.3-44.9); Hemoglobin 9.7 g/dL (11.5-15.4); Immature Granulocytes % 0.6 % (0-4); Lymphocytes # 1.1 K/mcL (0.6-4.6); Lymphocytes % 16.5 %; Mean Corpuscular HGB Conc 29.7 g/dL (31.6-35.5); Mean Corpuscular Hemoglobin 27.8 pg (28.0-33.3); Mean Corpuscular Volume 93.7 fL (83.0-100.0); Mean Platelet Volume 8.8 fL (9.4-12.4); Monocytes # 0.4 K/mcL (0.0-1.3); Monocytes % 5.4 %; Neutrophils # 5.1 K/mcL (1.6-8.9); Platelet Count 373 K/mcL (140-400); Red Blood Count 3.49 M/mcL (3.82-4.97); Red Cell Distribution Width 14.3 % (11.5-14.5); Segmented Neutrophils % 76.5 %
--- NOTE | 2016-12-01 09:54 | Internal Med Progress Note ---
<TereFlorencio Rubi - Last Filed: 12/01/16 11:41> Date of Encounter: 12/01/16 Time of Encounter: 09:52 - Assessment and plan (1) Pneumonia due to Gram-negative bacteria Current Visit: Yes Status: Acute Assessment and plan: Patient has concerns for pneumonia with increased oxygen demand, tachypnea, low grade fever and increased heart rate. Correlated with CXR from today concerning for right lower lobe pneumonia. Plan: - Start cefepime and Levaquin -Discontinue ceftriaxone - Continue oxygen and wean as tolerated (2) Closed intertrochanteric fracture of left femur Current Visit: Yes Status: Acute Assessment and plan: Patient admitted on 11/23/2016 with left intratrochanteric proximal hip fracture. She underwent left hip nailing on 11/26/2016. Patient is working with physical therapy with last examination requiring assist x2 to commode Plan: - Continue working with physical therapy and occupational therapy - Recommendations are for SNF/ECF placement after hospital discharge Qualifiers: Encounter type: initial encounter Qualified Code(s): S72.142A - Displaced intertrochanteric fracture of left femur, initial encounter for closed fracture (3) Chronic anticoagulation Current Visit: Yes Status: Chronic Assessment and plan: Patient was on warfarin therapy with chronic atrial fibrillation, warfarin is subtherapeutic as this was stopped and reversed for femur repair. -Cardiology has evaluated the patient and only recommends aspirin and discontinuation of warfarin therapy at the time of discharge. Plan: - Continue ASA only (4) Vulvar carcinoma Current Visit: Yes Status: Chronic Assessment and plan: chronic (5) UTI (urinary tract infection) Current Visit: Yes Status: Acute Assessment and plan: Patient had abnormal UA on 11/24/2016 with urine culture growing Klebsiella pneumonia with jason sensitivity. Qualifiers: Urinary tract infection type: acute cystitis Hematuria presence: without hematuria Qualified Code(s): N30.00 - Acute cystitis without hematuria (6) Atrial fibrillation with RVR Current Visit: Yes Status: Acute Assessment and plan: Underlying chronic atrial fibrillation. Patient had rapid ventricular rate inpatient and paster supervisor consult. Currently rate controlled. Plan: - Continue Cardizem CD 240 mg by mouth daily - Continue digoxin 0.125 mg by mouth daily (7) Edema Current Visit: Yes Status: Acute Assessment and plan: Likely secondary to CHF exacerbation. Plan: -Lasix 40 mg 3 times a day Qualifiers: Edema type: localized Qualified Code(s): R60.0 - Localized edema (8) Congestive heart failure (CHF) Current Visit: Yes Status: Acute Assessment and plan: Patient has a history of congestive heart failure. - Clinical examination demonstrates volume overload. Correlated with chest x- ray demonstrating left side minimal pleural effusion with diffuse pulmonary edema. Echocardiogram from 11/23/2016 demonstrates suboptimal due to poor echocardiographic windows. Normal left ventricular systolic function with an EF of 65%. Mild concentric left ventricular hypertrophy. Indeterminate diastolic dysfunction due to atrial fibrillation. Normal right ventricular size and function. Moderate dilated left atrium. No significant valvular dysfunction. I will pulmonary hypertension. Plan: - Increased Lasix to 3 times a day -Strict ins and outs monitoring -Daily weights - Continue beta sherlyn Qualifiers: Congestive heart failure type: diastolic Congestive heart failure chronicity: acute on chronic Qualified Code(s): I50.33 - Acute on chronic diastolic (congestive) heart failure (9) Anemia Current Visit: Yes Status: Acute Assessment and plan: Patient has a history of normocytic anemia with an average hemoglobin of around 12.4. Her admitting hemoglobin was around 9, hemoglobin on 11/27/2016 was 8.1 and today is 10.1. She had been typed and screened with a blood type of A+ but has not received any transfusions. Acute blood loss anemia secondary to left intratrochanteric hip fracture and status post repair. - Current INR is 1.0 as Coumadin has been discontinued Plan: - Continue to monitor with daily CBCs. - Transfuse if hemoglobin drops below 7.0 and monitor for other causes of blood loss. Qualifiers: Anemia type: unspecified type Qualified Code(s): D64.9 - Anemia, unspecified - Subjective Interval history: Mrs. Hauser has been seen and evaluated at patient bedside this am. She does not respond to questions but does follow commands. She demonstrates mild tachypnea. Her daughter at bedside says that she has required increased oxygen since admission. She is also concerned since her mother is on scheduled pain medications at home for chronic pain and she is on when necessary meds here and may not be getting sufficient doses. She is concerned that she has not participating with physical therapy because she is in too much pain but may be forgetting to ask for pain medications with her dementia. - Constitutional Vitals: Temp Pulse Resp BP Pulse Ox 99.1 F 86 25 146/77 91 L 03/28/17 06:50 12/01/16 06:50 12/01/16 06:25 12/01/16 06:50 12/01/16 06:50 General appearance: Present: A&O X 1, answers questions appropriately - Head Head exam: Present: atraumatic, normocephalic - Eye Eye exam: Present: PERRL, conjuntiva pink, sclera anicteric Pupils: Present: PERRL - ENT ENT exam: Present: mucous membranes moist - Neck Neck exam general surgery: Present: supple, trachea midline. Absent: lymphadenopathy - Respiratory Respiratory exam: Present: rhonchi (diffuse rhonchi and wheezing ), wheezes, tachypnea. Absent: accessory muscle use, rales - Cardiovascular Cardiovascular exam: Present: irregular rhythm. Absent: diastolic murmur, gallop, rubs, systolic murmur - GI/Abdominal GI/Abdominal exam: Present: normal bowel sounds, soft, no peritoneal signs. Absent: distended, tenderness - Extremities Exam Extremities exam: Present: pedal edema (diffuse trace edema in all 4 extremities ), warm, radial pulses palpable and symetrical. Absent: calf tenderness, cyanotic - Neurological Exam Neurological exam: Present: alert, no focal deficits Internal Medicine: Result - Labs CBC & Chem 7: 12/01/16 09:44 12/01/16 09:44 Labs: Short CBC 11/30/16 Range/Units 11:44 WBC 8.5 (4.3-11.1) K/mcL Hgb 10.1 L (11.5-15.4) g/dL Hct 33.6 L (35.3-44.9) % Plt Count 377 (140-400) K/mcL - ABG Interpretation ABG results: PT/INR, D-dimer PT 11.3 Seconds (9.4-12.1) 12/01/16 05:38 - VTE Documentation of Mechanical Device: Intermittent pneumatic compression device Consult Discharge Plan - Plan Referrals: Al Gonzales MD [Primary Care Provider] - <Gil Em - Last Filed: 12/01/16 11:47> - Constitutional Vitals: Temp Pulse Resp BP Pulse Ox 99.1 F 86 25 146/77 91 L 12/01/16 06:50 12/01/16 06:50 12/01/16 06:25 12/01/16 06:50 12/01/16 06:50 Internal Medicine: Result - Labs CBC & Chem 7: 12/01/16 09:44 12/01/16 09:44 Labs: Short CBC 11/30/16 12/01/16 Range/Units 11:44 09:44 WBC 8.5 6.7 (4.3-11.1) K/mcL Hgb 10.1 L 9.7 L (11.5-15.4) g/dL Hct 33.6 L 32.7 L (35.3-44.9) % Plt Count 377 373 (140-400) K/mcL Neutrophils # 5.1 (1.6-8.9) K/mcL BMP 12/01/16 09:44 Sodium 138 Potassium 3.7 Chloride 95 L Carbon Dioxide 33 H BUN 13 Creatinine 0.86 Glucose 132 H Calcium 8.9 Liver Function 12/01/16 Range/Units 09:44 Total Bilirubin 0.4 (0.2-1.2) mg/dL AST 26 (5-34) Units/L ALT 10 (0-55) Units/L Alkaline Phosphatase 79 (38-126) Units/L Albumin 1.8 L (3.5-5.0) g/dL - ABG Interpretation ABG results: PT/INR, D-dimer PT 11.3 Seconds (9.4-12.1) 12/01/16 05:38 - Impressions Impressions Chest X-Ray 12/01/16 09:28 IMPRESSION: New right lung airspace opacities, edema versus pneumonia. Cardiomegaly and pulmonary vascular congestion. D/ / 12/01/2016 10:45:41 Tereza George MD / [email or web address] Interpreting Provider: Tereza George MD - Attending Attestation hypoxia likely secondary to combination of possible gram negative pneumonia with acute diastolic CHF exacerbation start cefepime and levaquin, may add vancomycin if BP drops I examined this patient and my medical decision-making was reviewed with the SPEECH LANGUAGE SPECIALIST/PA/Advanced Practice Nurse/Resident Physician. I agree with the documented findings, disposition and treatment plan as described except to the extent set forth below.
[2016-12-01 10:06] LABS: Alanine Aminotransferase 10 Units/L (0-55); Albumin 1.8 g/dL (3.5-5.0); Albumin/Globulin Ratio 0.4 (1.1-2.2); Alkaline Phosphatase 79 Units/L (38-126); Aspartate Amino Transferase 26 Units/L (5-34); BUN/Creatinine Ratio 15 (6-26); Bilirubin,Total 0.4 mg/dL (0.2-1.2); Blood Urea Nitrogen 13 mg/dL (7-20); Calcium 8.9 mg/dL (8.6-10.8); Carbon Dioxide 33 mEq/L (19-29); Chloride 95 mEq/L (98-109); Globulin 4.9 g/dL (2.4-3.5); Glucose 132 mg/dL (70-99); Osmolality,Calculated 288 (280-300); Potassium 3.7 mEq/L (3.5-4.5); Sodium 138 mEq/L (136-145); Total Protein 6.7 g/dL (6.0-8.3); eGFR For African Americans > 60 (> 60); eGFR For Non-African Americans > 60 (> 60)
--- NOTE | 2016-12-01 10:13 | ECHO - Doppler Report ---
Echocardiogram Name: Danuta Hauser Date of Study: 12/01/2016 Date: 1935 Ht: 66.0 in Medical Record#: [id number] Age: 80 Wt: 220.0 lb Gender: Female BSA: 2.08 Order #: [id number] Location: [facility] Room #: [id number] Reading Physician: Rajinder Velázquez MD, [facility] Secured Entrance Monitor: Fritz Solorzano Ordering Physician: Shara Melo DO Primary Physician: Al Gonzales MD Indications: Edema Impressions: Technically sub-optimal due to poor echocardiographic windows. Normal LV systolic function, LVEF 65%. Mild concentric left ventricular hypertrophy. Indeterminate diastolic function due to atrial fibrillation. Normal right ventricular size and function. Moderately dilated left atrium. No significant valvular dysfunction. Mild pulmonary hypertension. Estimated RVSP = 38 mmHg. Left Ventricular Wall Motion: Rest Echo Findings All wall segments showed normal motion. Findings: Study Quality * Technically sub-optimal due to poor echocardiographic windows. ECG Findings * Atrial fibrillation. Left Ventricle * Normal LV systolic function, LVEF 65%. * Mild concentric left ventricular hypertrophy. * Indeterminate diastolic function due to atrial fibrillation. Right Ventricle * Normal right ventricular size and function. Left Atrium * Moderately dilated left atrium. Right Atrium * Normal right atrial size. Aorta * Normally sized aortic root. Pericardium * There is no pericardial effusion present. IVC * The IVC is not dilated. Aortic Valve * Aortic valve not well visualized. Appears trileaflet. * No aortic stenosis. * No aortic regurgitation. Mitral Valve * Mild mitral annular calcification * No mitral stenosis. * No mitral regurgitation. Tricuspid Valve * Tricuspid valve not well visualized. * No tricuspid stenosis. * Trace tricuspid regurgitation. * Mild pulmonary hypertension. Estimated RVSP = 38 mmHg. Pulmonic Valve * Pulmonic valve not well visualized. * No pulmonic stenosis. * Trace pulmonic regurgitation. History Hypertension Diabetes Hypercholesteremia Family History of CAD Congestive Heart Failure 08-16-2015 a Previous Echo was performed. Measurements: BP: 146/ 77 2D Normal Values RVIDd: 3.50 cm IVSd: 1.20 cm 0.6 - 1.0 cm LVIDd: 4.80 cm 3.7 - 5.6 cm LVPWd: 1.20 cm 0.6 - 1.1 cm LVIDs: 3.20 cm 1.5 - 3.6 cm AO: 3.20 cm < 4.0 cm LA volume: 80 Tricuspid Valve TV Regurg Peak Grad: 33.00mmHg TV Regurg Peak Hakeem: 2.86m/sec Updated by Rajinder Velázquez MD, [facility] on 12/01/2016 10:08:24 AM electronically signed on 12/01/2016 10:08:52 AM with status of Final Wall Motion Flores: 1=Normal, 2=Hypokinesis, 3=Akinesis, 4=Dyskinesis, 5=Aneurysmal, 6=Hyperkinetic, X=Not Visualized (Blank)=Missing
[2016-12-01] MEDS: Ondansetron 4 MG/2 ML VIAL IVP PRN (11:01)
[2016-12-01] MEDS: *HR* OxyCODONE Immed Rel 5 MG TABLET PO PRN (11:01)
--- NOTE | 2016-12-01 11:01 | Cardiology Progress Note ---
<Shara Melo - Last Filed: 12/01/16 12:13> Date of Encounter: 12/01/16 Time of Encounter: 09:00 Assessment and Plan (1) Atrial fibrillation with RVR Current Visit: Yes Status: Acute Patient with known afib not anticoagulated due to history of GI bleed, ASA only for anticoagulation Patient is s/p Left femur repair 11/26/16 Patient noted to have HR 120s-130s two days post-operatively Cardizem 240 was restarted 4 days after admission We restarted Labetalol 50mg BID 24 hour telemetry: avg 98, afib RVR, min 49, max 120 ECHO: 11/30/16 LVEF 65%, mild concentric LVH, indeterminate LV diastolic dysfunction due to afib, normal RV size and function, moderately dilated L atrium, no significant valvular dysfunction, mild pulm HTN, estimated RVSP 38mm Hg Patient currently on Cardizem 240mg daily, digoxin 0.125mg daily, and Labetalol 50mg BID Plan: Continue current medications as above Recommend ASA only Previously seen in Cardiology office July, notes reviewed Patient with previous history of GI bleed on coumadin Now presents with fall We recommend against use of coumadin due to risk of falls, GI Bleed, and due to pt currently under Hospice care (2) Congestive heart failure (CHF) Current Visit: Yes Status: Acute ECHO does not demonstrate systolic heart failure, LV diastolic function indeterminate due to afib Repeat CXR today demonstrated new right lung airspace opacities, edema versus pneumonia Patient diaphoretic, tachypnic, and hypoxemic requiring increased O2 to maintain saturation Concern is that patient may have developing pneumonia in the setting of existing heart failure According to records, patient is +3L of fluid this hospital visit Agree with increasing IV diuresis with monitoring of renal function Qualifiers: Congestive heart failure type: diastolic Congestive heart failure chronicity: acute on chronic Qualified Code(s): I50.33 - Acute on chronic diastolic (congestive) heart failure (3) HTN (hypertension) Current Visit: Yes Status: Chronic Stable at this time Continue to monitor Qualifiers: Hypertension type: essential hypertension Qualified Code(s): I10 - Essential (primary) hypertension (4) Edema Current Visit: Yes Status: Acute Bilateral arms with 1+ pitting edema, likely secondary to IV sites Patient with significant hypoalbuminemia, Albumin 1.8 I suspect that hypoalbuminemia may be contributing to patient's edema Venous duplex 11/28/16 noted no DVT present Qualifiers: Edema type: localized Qualified Code(s): R60.0 - Localized edema Discussion w patient/family: The assessment and plan as outlined above was discussed with the patient and/or family members who expressed understanding and agreement. All questions were answered. Thank you for involving us in the care of your patient. Please call with any questions. Subjective Principal diagnosis: Intertrochanteric fracture left hip Interval history: Patient found sitting in bed at time of interview. Patient appears to have increased work of breathing and diaphoretic on initial assessment. Daughter and POA, Brook, enters room at time of patient interview. She complains that her mother's breathing is worse, extremity swelling is worse, and patient is diaphoretic. Objective General: Conversant, Other (Mild distress due to increased work of breathing. Diaphoretic.) HEENT: Atraumatic, Normocephaly Neck: No JVD, Normal carotid pulses Cardiac: Normal S1 and S2, No Murmur, Other (Irregular rhythm) Lungs: Other (Coarse rhonchi appreciated in all lung bates bilaterally, most prominent to lung bases. Expiratory wheezing bilaterally.) Neuro: Alert and responsive, No focal deficits noted Abdomen: Soft, Non-Tender Skin: No rashes noted on visualized skin Musculoskeletal: No Chest Wall Tenderness Extremities: No Clubbing, No Cyanosis, No Edema (1+ nonpitting edema to bilateral upper extremities, 2+ pitting edema to left lower leg), Normal Pulses Results 12/01/16 09:44 12/01/16 09:44 Lab Results 11/30/16 11/30/16 12/01/16 11:44 11:44 05:38 WBC 8.5 Hgb 10.1 L Hct 33.6 L Plt Count 377 INR 1.1 1.0 APTT 19.0 L Sodium Potassium Chloride Carbon Dioxide BUN Creatinine Glucose Calcium Total Bilirubin AST ALT Alkaline Phosphatase B-Natriuretic Peptide 12/01/16 12/01/16 12/01/16 09:44 09:44 09:44 WBC 6.7 Hgb 9.7 L Hct 32.7 L Plt Count 373 INR APTT Sodium 138 Potassium 3.7 Chloride 95 L Carbon Dioxide 33 H BUN 13 Creatinine 0.86 Glucose 132 H Calcium 8.9 Total Bilirubin 0.4 AST 26 ALT 10 Alkaline Phosphatase 79 B-Natriuretic Peptide 220 H - Imaging and Cardiology Chest Xray: report reviewed, image reviewed Echo: report reviewed Holter: report reviewed - EKG Interpretation EKG results cardiology: personally reviewed (Afib) - VTE Documentation of Mechanical Device: Intermittent pneumatic compression device Consult Discharge Plan - Plan Referrals: Al Gonzales MD [Primary Care Provider] - <Nay Bardales - Last Filed: 12/01/16 14:54> Assessment and Plan Discussion w patient/family: I examined this patient and my medical decision-making was reviewed with the CEMENT BREAKER/PA/Advanced Practice Nurse/Resident Physician. I agree with the documented findings, disposition and treatment plan. Ms. Hauser has not had any acute overnight events. Today on exam, she is diaphoretic and is having low grade temperatures. CXR demonstrates new opacities documented as heart failure vs pneumona. Her LV systolic function is normal suggesting against systolic CHF as a cause for her presentation. Lasix was increased by primary team. Recommend careful watch on kidney function. May consider an infectious etiology given low grade fevers and diaphoresis. In regards to heart rates, they are 90 to low 100's on lopressor, cardizem and digoxin. Heart rates may not normalize while having fevers. Will follow along. Objective Vital Signs, Last 4 Hours Temp Pulse Resp BP Pulse Ox 12/01/16 11:45 98.4 F 75 16 132/78 91 L Results 12/01/16 09:44 12/01/16 09:44 Lab Results 12/01/16 12/01/16 12/01/16 05:38 09:44 09:44 WBC 6.7 Hgb 9.7 L Hct 32.7 L Plt Count 373 INR 1.0 Sodium 138 Potassium 3.7 Chloride 95 L Carbon Dioxide 33 H BUN 13 Creatinine 0.86 Glucose 132 H Calcium 8.9 Total Bilirubin 0.4 AST 26 ALT 10 Alkaline Phosphatase 79 B-Natriuretic Peptide 12/01/16 09:44 WBC Hgb Hct Plt Count INR Sodium Potassium Chloride Carbon Dioxide BUN Creatinine Glucose Calcium Total Bilirubin AST ALT Alkaline Phosphatase B-Natriuretic Peptide 220 H
[2016-12-01] MEDS: *HR* OxyCODONE Immed Rel 5 MG TABLET PO SCH ×3 (13:43→21:22)
[2016-12-01] MEDS: Levofloxacin 750 MG/150 ML 750 MG/150 ML BAG IVPB SCH (13:44)
[2016-12-01] MEDS: Cefepime HCl 2,000 MG in D5% in Water (Mini-Bag+) 100 ML IVPB SCH (16:04)
[2016-12-01] MEDS ORDERED: Vancomycin 1,500 MG in D5% in Water 250 ML IVPB SCH (17:00)
[2016-12-01 17:11] LABS: ABG Base Excess 7.2 mEq/L (-2.0 to 3.0); ABG HCO3 37.2 mEQ/L (21-27); ABG Oxygen Saturation 97 % (95-98); ABG PH 7.22 pH Units (7.32-7.45); ABG PO2 101 mmHg (85-104)
[2016-12-01 17:12] LABS: Blood Gas FiO2 100 %
[2016-12-01 17:13] LABS: ABG PCO2 91 mmHg (35-45)
[2016-12-01] MEDS: Vancomycin 1,500 MG in D5% in Water 250 ML IVPB SCH (17:56)
[2016-12-01] MEDS: *HR* Enoxaparin 30 MG/0.3 ML SYRINGE SQ SCH (17:56)
--- NOTE | 2016-12-01 18:49 | Orthopedics Progress Note ---
Date of Encounter: 12/01/16 Time of Encounter: 18:46 Subjective Principal diagnosis: Intertrochanteric fracture left hip Interval history: 11/25/2016. Patient is seen in follow-up regarding her left hip fracture. Pain management has been good. Vital signs are stable. Patient is afebrile. Exam is unchanged. Hemoglobin is 8.1. Platelet count remains 244. PTT is 14.1 with an INR of 1.3. Urine culture is growing a gram-negative kristine. Patient has been on ceftriaxone. Impression: Intertrochanteric fracture left hip Plan: We will proceed with intramedullary nailing of her left hip tomorrow. Informed consent has been obtained. Preoperative orders have been written. 11/27/2016. Patient is postop day #1 from intramedullary nailing of her left hip. She is having less pain today than preop. Vital signs are stable. She does have a pulse of about 110. History of chronic A. fib. Afebrile. Dressings show only minor serous spotting. Leg is somewhat edematous. Hemoglobin is 8.1, stable. Platelet count normal. Impression: POD #1 IM nailing left hip, orthopedic status stable Recommendation: Can ambulate patient as tolerated. We will continue to monitor. public services librarian for discharge planning process. 11/28/2016. Patient states she is feeling better. She denies any arm pain but has noticed increased swelling in the right arm just recently. Vital signs are stable with a pulse of just over 100. She is afebrile. Dressings are clean and dry. Right upper extremity is markedly edematous and somewhat ecchymotic from the elbow distal. Neurosensory exam is intact. Hemoglobin is stable at 8.4. Platelets remained normal at 273. White count is normal at 5.1. A recently completed chest x-ray shows no overt failure nor infiltrative process. Right upper extremity ultrasound results are pending. Impression: POD #2 IM nailing left hip, orthopedic status stable. Recommendation: as noted previously patient can ambulate as tolerated. Patient is currently on Lovenox and warfarin until her pro time is appropriate. No evidence of a significant bleed with these medications in use. 11/30/2016. Patient is postop day #4 IM nailing left hip. No complaints referable to the left hip. Vital signs with variable tachycardia currently about 90. He is afebrile at 99.1. Hip and suggest dressings remain clean and dry. Right upper extremity appears to be somewhat improved with regards to swelling. Hemoglobin stable at 10.1. White blood cell count is normal platelet count normal. Impression: POD #4 IM nailing left hip, orthopedic status remained stable. Recommendation: Can ambulate as tolerated. Orthopedic status is stable. We will follow as needed. 12/01/2016. Patient denies any significant hip pain. She is having some dyspnea. She has been moved to 2 N. secondary to hypoxia. Vital Signs stable. Pulse ox currently about 95. Hip dressings clean and dry hemoglobin stable at 9.7. White blood cell count normal. Impression: POD #5 IM nailing left hip, orthopedic status stable Recommendation: Can ambulate when able. Encourage use of right hand to allow muscle pumping to help eliminate edema. Objective Vital signs: Vital Signs Temp Pulse Resp BP Pulse Ox 12/01/16 17:31 39 94 L 12/01/16 17:02 70 39 127/81 98 12/01/16 16:34 98.5 F 70 30 155/82 85 L 12/01/16 14:56 98.4 F 90 146/73 90 L 12/01/16 11:45 98.4 F 75 16 132/78 91 L 12/01/16 06:50 99.1 F 86 146/77 91 L 12/01/16 06:25 25 91 L 12/01/16 04:44 99.1 F 109 23 155/82 96 12/01/16 00:31 99.5 F 94 21 141/79 94 L 11/30/16 20:53 18 93 L 11/30/16 19:53 99.1 F 99 24 130/83 93 L Intake and Output 12/01/16 12/01/16 12/01/16 07:59 15:59 23:59 Other: Blood Glucose* 129 189 - Labs CBC & BMP: 12/01/16 09:44 12/01/16 09:44 Labs: Abnormal lab results RBC 3.49 M/mcL (3.82-4.97) L 12/01/16 09:44 Hgb 9.7 g/dL (11.5-15.4) L 12/01/16 09:44 Hct 32.7 % (35.3-44.9) L 12/01/16 09:44 MCH 27.8 pg (28.0-33.3) L 12/01/16 09:44 MCHC 29.7 g/dL (31.6-35.5) L 12/01/16 09:44 MPV 8.8 fL (9.4-12.4) L 12/01/16 09:44 APTT 19.0 Seconds (26.0-36.0) L 11/30/16 11:44 ABG pH 7.22 pH Units (7.32-7.45) L 12/01/16 17:00 ABG pCO2 91 mmHg (35-45) H* 12/01/16 17:00 ABG HCO3 37.2 mEQ/L (21-27) H 12/01/16 17:00 ABG Total CO2 40.0 mEq/L (20-26) H 12/01/16 17:00 ABG Base Excess 7.2 mEq/L (-2.0 to 3.0) H 12/01/16 17:00 Chloride 95 mEq/L (98-109) L 12/01/16 09:44 Carbon Dioxide 33 mEq/L (19-29) H 12/01/16 09:44 Glucose 132 mg/dL (70-99) H 12/01/16 09:44 POC Glucose 187 (58-89) H 12/01/16 16:29 B-Natriuretic Peptide 220 pg/mL (0-100) H 12/01/16 09:44 Albumin 1.8 g/dL (3.5-5.0) L 12/01/16 09:44 Globulin 4.9 g/dL (2.4-3.5) H 12/01/16 09:44 Albumin/Globulin Ratio 0.4 (1.1-2.2) L 12/01/16 09:44 HDL Cholesterol 35 mg/dL (40-59) L 11/24/16 06:13 Urine Clarity Cloudy (Clear) A 11/24/16 04:20 Urine Blood Trace (Negative) H 11/24/16 04:20 Urine Nitrite Positive (Negative) A 11/24/16 04:20 Ur Leukocyte Esterase Large (Negative) H 11/24/16 04:20 Urine Microscopic RBC 5-15 per hpf (0-3) H 11/24/16 04:20 Urine Microscopic WBC TNTC per hpf (0-3) H 11/24/16 04:20 Ur Squamous Epith Cells Many per lpf (None-Few) H 11/24/16 04:20 Urine Bacteria Many per hpf (None-Few) H 11/24/16 04:20 Ur Culture Indicated? YES (NO) A 11/24/16 04:20 Stool Occult Blood Positive (Negative) A 11/23/16 18:45 - VTE Documentation of Mechanical Device: Intermittent pneumatic compression device Consult Discharge Plan - Plan Referrals: Al Gonzales MD [Primary Care Provider] -
[2016-12-01 19:41] LABS: ABG Oxygen Saturation 100 % (95-98); ABG PCO2 66 mmHg (35-45); ABG PH 7.39 pH Units (7.32-7.45); ABG PO2 303 mmHg (85-104)
[2016-12-01 19:43] LABS: Blood Gas FiO2 100 %; Blood Gas PEEP 8 cm H2O; Blood Gas Respiration Rate 16
[2016-12-02] MEDS: Insulin LISPRO 300 UNITS/3 ML VIAL SQ SCH ×5 (02:11→20:22)
[2016-12-02] MEDS: Cefepime HCl 2,000 MG in D5% in Water (Mini-Bag+) 100 ML IVPB SCH ×2 (03:22→17:41)
[2016-12-02] MEDS: Levothyroxine 25 MCG TABLET PO SCH (05:26)
[2016-12-02] MEDS: *HR* Enoxaparin 30 MG/0.3 ML SYRINGE SQ SCH ×2 (05:31→17:42)
[2016-12-02] MEDS: Vancomycin 1,500 MG in D5% in Water 250 ML IVPB SCH ×2 (05:32→18:22)
[2016-12-02 05:50] LABS: Basophils % 0.5 %; Eosinophils # 0.2 K/mcL (0.0-0.6); Eosinophils % 3.7 %; Hematocrit 28.6 % (35.3-44.9); Hemoglobin 8.3 g/dL (11.5-15.4); Lymphocytes # 0.7 K/mcL (0.6-4.6); Mean Corpuscular Hemoglobin 27.4 pg (28.0-33.3); Mean Corpuscular Volume 94.4 fL (83.0-100.0); Mean Platelet Volume 8.9 fL (9.4-12.4); Monocytes # 0.2 K/mcL (0.0-1.3); Monocytes % 4.4 %; Platelet Count 294 K/mcL (140-400); Red Blood Count 3.03 M/mcL (3.82-4.97); Red Cell Distribution Width 14.3 % (11.5-14.5); Segmented Neutrophils % 72.4 %
[2016-12-02 05:52] LABS: INR 1.1; Prothrombin Time 12.3 Seconds (9.4-12.1)
[2016-12-02 06:07] LABS: ABG Base Excess 16.8 mEq/L (-2.0 to 3.0); ABG HCO3 43.5 mEQ/L (21-27); ABG Oxygen Saturation 97 % (95-98); ABG PCO2 67 mmHg (35-45); ABG PH 7.42 pH Units (7.32-7.45); ABG PO2 94 mmHg (85-104); ABG TCO2 45.6 mEq/L (20-26); Blood Gas FiO2 50 %; Blood Gas PEEP 8 cm H2O; Blood Gas Respiration Rate 16
[2016-12-02 06:10] LABS: Alanine Aminotransferase 9 Units/L (0-55); Albumin/Globulin Ratio 0.4 (1.1-2.2); Alkaline Phosphatase 67 Units/L (38-126); Aspartate Amino Transferase 22 Units/L (5-34); BUN/Creatinine Ratio 19 (6-26); Bilirubin,Total 0.3 mg/dL (0.2-1.2); Blood Urea Nitrogen 17 mg/dL (7-20); Calcium 8.5 mg/dL (8.6-10.8); Carbon Dioxide 34 mEq/L (19-29); Chloride 100 mEq/L (98-109); Glucose 86 mg/dL (70-99); Osmolality,Calculated 291 (280-300); Potassium 3.7 mEq/L (3.5-4.5); Sodium 140 mEq/L (136-145); Total Protein 5.7 g/dL (6.0-8.3); eGFR For African Americans > 60 (> 60); eGFR For Non-African Americans > 60 (> 60)
[2016-12-02 06:13] LABS: Albumin 1.7 g/dL (3.5-5.0)
--- NOTE | 2016-12-02 09:25 | Internal Med Progress Note ---
Date of Encounter: 12/02/16 Time of Encounter: 09:22 - Assessment and plan (1) Pneumonia due to Gram-negative bacteria Current Visit: Yes Status: Acute Assessment and plan: Severe hypoxic and hypercapnic respiratory failure secondary to Possible gram- negative pneumonia/healthcare associated pneumonia The patient is maintaining her blood pressure Continue cefepime, Levaquin and vancomycin IV Continue BiPAP Cultures pending CXR from 12/01/2016 was concerning for right lower lobe pneumonia, progressed. High risk due to respiratory failure DNR cc A (2) Closed intertrochanteric fracture of left femur Current Visit: Yes Status: Acute Assessment and plan: Patient admitted on 11/23/2016 with left intratrochanteric proximal hip fracture. She underwent left hip nailing on 11/26/2016. Continue PTOT SNF/ECF placement after hospital discharge Qualifiers: Encounter type: initial encounter Qualified Code(s): S72.142A - Displaced intertrochanteric fracture of left femur, initial encounter for closed fracture (3) Vulvar carcinoma Current Visit: Yes Status: Chronic Assessment and plan: chronic (4) Chronic atrial fibrillation Current Visit: Yes Status: Chronic Assessment and plan: with RVR and diastolic chf cardiology consulted evaluation in progress (5) HTN (hypertension) Current Visit: Yes Status: Chronic Assessment and plan: well controlled Qualifiers: Hypertension type: essential hypertension Qualified Code(s): I10 - Essential (primary) hypertension (6) COPD (chronic obstructive pulmonary disease) Current Visit: Yes Status: Chronic Assessment and plan: no need of steroids for now Qualifiers: COPD type: unspecified COPD Qualified Code(s): J44.9 - Chronic obstructive pulmonary disease, unspecified (7) Type 2 diabetes mellitus Current Visit: Yes Status: Chronic Assessment and plan: chronic on sliding scale Qualifiers: Diabetes mellitus complication status: with unspecified complications Diabetes mellitus assisted insulin use: unspecified assisted insulin use status Qualified Code(s): E11.8 - Type 2 diabetes mellitus with unspecified complications (8) Anemia Current Visit: Yes Status: Acute Assessment and plan: Acute blood loss anemia secondary to left intratrochanteric hip fracture and status post repair. Stable, no signs of bleeding Her admitting hemoglobin was around 9, hemoglobin on 11/27/2016 was 8.1 and today is 8.3. Coumadin has been discontinued Qualifiers: Other causes of anemia: chronic disease, other Qualified Code(s): D63.8 - Anemia in other chronic diseases classified elsewhere (9) UTI (urinary tract infection) Current Visit: Yes Status: Acute Assessment and plan: Patient had abnormal UA on 11/24/2016 with urine culture growing Klebsiella pneumonia, jason sensitivity. Completed 3 days of ceftriaxone Qualifiers: Urinary tract infection type: acute cystitis Hematuria presence: without hematuria Qualified Code(s): N30.00 - Acute cystitis without hematuria (10) Congestive heart failure (CHF) Current Visit: Yes Status: Acute Assessment and plan: First chest x-ray chest x-ray demonstrating left side minimal pleural effusion with diffuse pulmonary edema. Echocardiogram from 11/23/2016 demonstrates suboptimal due to poor echocardiographic windows. Normal left ventricular systolic function with an EF of 65%. Mild concentric left ventricular hypertrophy. Indeterminate diastolic dysfunction due to atrial fibrillation. Normal right ventricular size and function. Moderate dilated left atrium. No significant valvular dysfunction. I will pulmonary hypertension. Continue IV Lasix -Strict ins and outs monitoring -Daily weights - Continue beta sherlyn Qualifiers: Congestive heart failure type: diastolic Congestive heart failure chronicity: acute on chronic Qualified Code(s): I50.33 - Acute on chronic diastolic (congestive) heart failure - Subjective Interval history: Feeling less short of breath than yesterday, still on a BiPAP. Denies any abdominal pain, no chest pain, no fevers overnight. No dysuria or diarrhea - Constitutional Vitals: Temp Pulse Resp BP Pulse Ox 97.9 F 90 26 93/53 98 12/02/16 06:32 12/02/16 06:32 12/02/16 06:32 12/02/16 06:32 12/02/16 06:32 General appearance: Present: A&O X 2, answers questions appropriately - Head Head exam: Present: atraumatic, normocephalic - Eye Eye exam: Present: PERRL, conjuntiva pink, sclera anicteric Pupils: Present: PERRL - Neck Neck exam general surgery: Present: supple, trachea midline. Absent: lymphadenopathy - Respiratory Respiratory exam: Present: CTAB, rales (Diffuse crackles in the right lung field medially at the base). Absent: accessory muscle use, rhonchi, wheezes - Cardiovascular Cardiovascular exam: Present: RRR, +S1, +S2. Absent: diastolic murmur, gallop, rubs, systolic murmur - GI/Abdominal GI/Abdominal exam: Present: normal bowel sounds, soft, no peritoneal signs. Absent: distended, tenderness - Extremities Exam Extremities exam: Present: warm, radial pulses palpable and symetrical. Absent : calf tenderness, cyanotic, pedal edema - Neurological Exam Neurological exam: Present: CN II-XII intact, no focal deficits. Absent: oriented X3, pronater drift, facial droop, speech deficit - Skin Skin exam: Present: dry, intact Internal Medicine: Result - Labs CBC & Chem 7: 12/02/16 05:29 12/02/16 05:29 Labs: Short CBC 12/01/16 12/02/16 Range/Units 09:44 05:29 WBC 6.7 4.1 L (4.3-11.1) K/mcL Hgb 9.7 L 8.3 L (11.5-15.4) g/dL Hct 32.7 L 28.6 L (35.3-44.9) % Plt Count 373 294 (140-400) K/mcL Neutrophils # 5.1 3.0 (1.6-8.9) K/mcL BMP 12/01/16 12/02/16 09:44 05:29 Sodium 138 140 Potassium 3.7 3.7 Chloride 95 L 100 Carbon Dioxide 33 H 34 H BUN 13 17 Creatinine 0.86 0.88 Glucose 132 H 86 Calcium 8.9 8.5 L Liver Function 12/01/16 12/02/16 Range/Units 09:44 05:29 Total Bilirubin 0.4 0.3 (0.2-1.2) mg/dL AST 26 22 (5-34) Units/L ALT 10 9 (0-55) Units/L Alkaline Phosphatase 79 67 (38-126) Units/L Albumin 1.8 L 1.7 L (3.5-5.0) g/dL - ABG Interpretation ABG results: ABG ABG pH 7.42 pH Units (7.32-7.45) 12/02/16 05:50 ABG pCO2 67 mmHg (35-45) H 12/02/16 05:50 ABG pO2 94 mmHg (85-104) 12/02/16 05:50 ABG O2 Saturation 97 % (95-98) 12/02/16 05:50 PT/INR, D-dimer PT 12.3 Seconds (9.4-12.1) H 12/02/16 05:29 - Impressions Impressions Chest X-Ray 12/01/16 09:28 IMPRESSION: New right lung airspace opacities, edema versus pneumonia. Cardiomegaly and pulmonary vascular congestion. D/ / 12/01/2016 10:45:41 Tereza George MD / [place] Interpreting Provider: Tereza George MD Chest X-Ray 12/01/16 16:31 IMPRESSION: Stable coarsening of the interstitial markings, possibly related to edema. Increasing dependent right basilar opacification concerning for effusion. D/ / Nikhil Doty MD / Nikhil Doty MD Interpreting Provider: Nikhil Doty MD - VTE Documentation of Mechanical Device: Venous foot pump, device Consult Discharge Plan - Plan Referrals: Al Gonzales MD [Primary Care Provider] -
[2016-12-02] MEDS: Levofloxacin 750 MG/150 ML 750 MG/150 ML BAG IVPB SCH (09:55)
[2016-12-02] MEDS: Ascorbic Acid 500 MG TABLET PO SCH ×2 (09:56→20:34)
[2016-12-02] MEDS: Diltiazem CD (24hr) 120 MG CAPSULE PO SCH (09:56)
[2016-12-02] MEDS: *HR* Digoxin 0.125 MG TABLET PO SCH (09:56)
[2016-12-02] MEDS: Zinc Sulfate 220 MG CAPSULE PO SCH (09:57)
[2016-12-02] MEDS: *HR* OxyCODONE Immed Rel 5 MG TABLET PO SCH ×4 (09:57→20:34)
[2016-12-02] MEDS: Silver Sulfadiazine 50 GM TUBE TP SCH ×3 (09:57→20:34)
--- NOTE | 2016-12-02 11:11 | Cardiology Progress Note ---
Date of Encounter: 12/02/16 Time of Encounter: 11:08 Assessment and Plan (1) Congestive heart failure (CHF) Current Visit: Yes Status: Acute Echo EF preserved 65%. Presumed diastolic CHF. Repeat CXR showed stable coarsening of interstitial markings possibly related to edema. Increasing dependent right basilar opacification concerning for effusion. Agree with increasing IV diuresis--40mg IV BID of Lasix. Recommend strict I/O, daily weights, Na and fluid restriction. Recommend transitioning to PO maintenance Lasix dose prior to D/C. No further recommendations. Cardiology is signing off. Reconsult PRN. Follow-up in 1-2 weeks as outpt--will coordinate. Qualifiers: Congestive heart failure type: diastolic Congestive heart failure chronicity: acute on chronic Qualified Code(s): I50.33 - Acute on chronic diastolic (congestive) heart failure (2) Atrial fibrillation with RVR Current Visit: Yes Status: Acute Patient with known afib not anticoagulated due to history of GI bleed, recommend ASA only for anticoagulation--start once okay with primary/ortho teams. Patient is s/p Left femur repair 11/26/16 Patient noted to have HR 120s-130s two days post-operatively Now rate controlled--24 hour tele AVG HR 81 A-Fib. Continue Digoxin, BB and Cardizem. Decreased cardizem cd to 120mg daily due to marginal BP. HR 60s-80s at bedside. Echo EF 65%, no significant valvular dysfunction. Discussion w patient/family: The assessment and plan as outlined above was discussed with the patient and/or family members who expressed understanding and agreement. All questions were answered. Thank you for involving us in the care of your patient. Please call with any questions. I will discuss all the above with Dr. Bardales and make changes as necessary. Subjective Principal diagnosis: Intertrochanteric fracture left hip Interval history: No acute cardiac complaints this AM. On BiPAP currently. CXR showed stable coarsening of interstitial markings possibly related to edema. Increasing dependent right basilar opacification concerning for effusion. 24 hour tele AVG HR 81, A-Fib. Objective Vital Signs, Last 4 Hours Pulse 12/02/16 08:30 66 Vital Signs Temp Pulse Resp BP Pulse Ox 12/02/16 08:30 66 12/02/16 06:32 97.9 F 90 26 93/53 98 12/02/16 03:28 97.8 F 76 101/58 100 12/02/16 00:14 97.9 F 68 26 100/82 100 12/01/16 19:41 97.6 F 67 32 82/58 100 12/01/16 17:31 39 94 L 12/01/16 17:02 70 39 127/81 98 12/01/16 16:34 98.5 F 70 30 155/82 85 L 12/01/16 14:56 98.4 F 90 146/73 90 L 12/01/16 11:45 98.4 F 75 16 132/78 91 L Intake and Output 12/01/16 12/02/16 12/02/16 23:59 07:59 15:59 Intake Total 250 / 250 450 / 450 0 / 0 Output Total 700 / 700 250 / 250 Balance -450 / -450 200 / 200 0 / 0 Intake: IV Fluids 250 / 250 450 / 450 Maxipime 2,000 MG In 200 / 200 Dextrose 5% (Minibag+) 100 ML 100 ML @ 200 mls/ hr IVPB Q12H [facility] Rx#: [id number] Vancocin 1,500 MG In 250 / 250 250 / 250 Dextrose 5% 250 ML @ 166. 67 mls/hr IVPB Q12H [facility] Rx#:[id number] Oral 0 / 0 0 / 0 Output: Catheter 700 / 700 250 / 250 Other: Meal Breakfast Percent of Meal Consumed 0% Weight 99.6 kg Blood Glucose* 132 101 Patient Weight 12/02/16 23:59 Weight 99.6 kg General: Conversant, Other (On BiPAP) HEENT: Atraumatic, Normocephaly, Mucus Membranes Moist Neck: Normal carotid pulses Cardiac: Other (irregularly irregular) Lungs: Other (rhonchi) Neuro: Alert and responsive, No focal deficits noted Abdomen: Soft, Non-Tender Skin: No rashes noted on visualized skin Musculoskeletal: No Chest Wall Tenderness Extremities: No Clubbing, No Cyanosis, No Edema, Normal Pulses Results 12/02/16 05:29 12/02/16 05:29 Lab Results 12/02/16 12/02/16 12/02/16 05:29 05:29 05:29 WBC 4.1 L Hgb 8.3 L Hct 28.6 L Plt Count 294 INR 1.1 Sodium 140 Potassium 3.7 Chloride 100 Carbon Dioxide 34 H BUN 17 Creatinine 0.88 Glucose 86 Calcium 8.5 L Total Bilirubin 0.3 AST 22 ALT 9 Alkaline Phosphatase 67 Short CBC 12/02/16 Range/Units 05:29 WBC 4.1 L (4.3-11.1) K/mcL Hgb 8.3 L (11.5-15.4) g/dL Hct 28.6 L (35.3-44.9) % Plt Count 294 (140-400) K/mcL Neutrophils # 3.0 (1.6-8.9) K/mcL BMP 12/02/16 Range/Units 05:29 Sodium 140 (136-145) mEq/L Potassium 3.7 (3.5-4.5) mEq/L Chloride 100 (98-109) mEq/L Carbon Dioxide 34 H (19-29) mEq/L BUN 17 (7-20) mg/dL Creatinine 0.88 (0.57-1.11) mg/dL Glucose 86 (70-99) mg/dL Calcium 8.5 L (8.6-10.8) mg/dL Liver Function 12/02/16 Range/Units 05:29 Total Bilirubin 0.3 (0.2-1.2) mg/dL AST 22 (5-34) Units/L ALT 9 (0-55) Units/L Alkaline Phosphatase 67 (38-126) Units/L Albumin 1.7 L (3.5-5.0) g/dL Impressions Chest X-Ray 12/01/16 09:28 IMPRESSION: New right lung airspace opacities, edema versus pneumonia. Cardiomegaly and pulmonary vascular congestion. D/ / 12/01/2016 10:45:41 Tereza George MD / earnold Interpreting Provider: Tereza George MD Chest X-Ray 12/01/16 16:31 IMPRESSION: Stable coarsening of the interstitial markings, possibly related to edema. Increasing dependent right basilar opacification concerning for effusion. D/ / Nikhil Doty MD / Nikhil Doty MD Interpreting Provider: Nikhil Doty MD Active Medications Acetaminophen (Tylenol) 650 mg PO Q6HR PRN PRN Reason: Mild Pain (1-3) Stop: 05/25/17 23:12 Albuterol/Ipratropium (Duoneb) 3 ml IH Q6HR PRN; Protocol PRN Reason: Shortness Of Breath Stop: 05/25/17 23:05 Last Admin: 12/01/16 06:25 Dose: 3 ml Ascorbic Acid (Vitamin C) 500 mg PO BID AMBER Stop: 05/26/17 21:01 Last Admin: 12/02/16 09:56 Dose: 500 mg Bisacodyl (Dulcolax) 10 mg RC DAILY PRN PRN Reason: Constipation Stop: 05/25/17 23:05 Dextrose/Water (Dextrose 50% (Syg)) 25 ml IVP AD PRN PRN Reason: Hypoglycemia Stop: 05/25/17 23:12 Digoxin (Lanoxin) 0.125 mg PO DAILY AMBER Stop: 05/26/17 09:01 Last Admin: 12/02/16 09:56 Dose: 0.125 mg Diltiazem HCl (Cardizem Cd) 120 mg PO DAILY AMBER Stop: 06/03/17 09:01 Last Admin: 12/02/16 09:56 Dose: 120 mg Docusate Sodium (Colace) 100 mg PO BID AMBER PRN Reason: Protocol Stop: 05/26/17 09:01 Last Admin: 12/02/16 09:56 Dose: 100 mg Enoxaparin Sodium (Lovenox) 30 mg SQ Q12HR [facility] Stop: 06/02/17 18:01 Last Admin: 12/02/16 05:31 Dose: 30 mg Furosemide (Lasix) 40 mg IVP BIDDIURETIC AMBER Stop: 06/03/17 17:01 Glucagon (Glucagen) 1 mg IM ONCE PRN PRN Reason: Hypoglycemia Stop: 05/25/17 23:12 Glucose (Gluctose) 15 gm PO ONCE PRN PRN Reason: Hypoglycemia Stop: 05/25/17 23:12 Glucose (Gluctose) 30 gm PO ONCE PRN PRN Reason: Hypoglycemia Stop: 05/25/17 23:12 Hydromorphone HCl (Dilaudid) 1 mg IVP Q2H PRN PRN Reason: Severe Pain Stop: 05/26/17 20:23 Last Admin: 11/29/16 22:40 Dose: 1 mg Dextrose (Dextrose 5%) 1,000 mls @ 100 mls/hr IV CONT PRN PRN Reason: HYPOGLYCEMIA Stop: 05/25/17 23:12 Cefepime HCl 2,000 mg/ (Dextrose) 100 mls @ 200 mls/hr IVPB Q12H [facility] Stop: 06/02/17 16:01 Last Infusion: 12/02/16 04:38 Dose: Infused Levofloxacin/Dextrose (Levaquin 750mg/150 Ml) 750 mg in 150 mls @ 100 mls/hr IVPB DAILY AMBER PRN Reason: Protocol Stop: 06/02/17 12:01 Last Admin: 12/02/16 09:55 Dose: 100 mls/hr Vancomycin HCl 1,500 mg/ (Dextrose) 250 mls @ 166.67 mls/hr IVPB Q12H [facility] Stop: 06/02/17 18:01 Last Infusion: 12/02/16 07:21 Dose: Infused Insulin Human Lispro (Humalog) 0 units SQ Q6HR AMBER PRN Reason: Protocol Stop: 06/03/17 00:01 Last Admin: 12/02/16 05:37 Dose: Not Given Levothyroxine Sodium (Synthroid) 25 mcg PO 0630 [facility] Stop: 05/29/17 06:31 Last Admin: 12/02/16 05:26 Dose: Not Given Metoprolol Tartrate (Lopressor) 50 mg PO BID [facility] Stop: 06/01/17 21:01 Last Admin: 12/02/16 09:56 Dose: 50 mg Naloxone HCl (Narcan) 0.4 mg IVP Q2MIN PRN PRN Reason: Opioid Reversal Stop: 05/25/17 23:12 Omeprazole (Prilosec) 20 mg PO 0630 [facility] Stop: 05/29/17 06:31 Last Admin: 12/02/16 05:26 Dose: Not Given Ondansetron HCl (Zofran) 4 mg IVP Q8HR PRN PRN Reason: Nausea And Vomiting Stop: 05/25/17 23:12 Last Admin: 12/01/16 11:01 Dose: 4 mg Oxycodone HCl (Roxicodone) 10 mg PO QID [facility] Stop: 06/02/17 13:01 Last Admin: 12/02/16 09:57 Dose: Not Given Potassium Chloride (Potassium Chloride) 20 meq PO DAILY [facility]BER Stop: 05/27/17 09:01 Last Admin: 12/02/16 09:57 Dose: 20 meq Silver Sulfadiazine (Silvadene) 1 appl TP TID [facility] Stop: 05/26/17 09:01 Last Admin: 12/02/16 09:57 Dose: 1 appl Zinc Sulfate (Zinc Sulfate) 220 mg PO DAILY [facility]BER Stop: 05/27/17 09:01 Last Admin: 12/02/16 09:57 Dose: 220 mg - Imaging and Cardiology Chest Xray: report reviewed - EKG Interpretation EKG results cardiology: other (24 hour tele AVG HR 81, A-Fib.) - VTE Documentation of Mechanical Device: Venous foot pump, device Consult Discharge Plan - Plan Referrals: Al Gonzales MD [Primary Care Provider] -
[2016-12-02] MEDS: Furosemide 40 MG/4 ML VIAL IVP SCH (17:35)
[2016-12-02] MEDS ORDERED: Albumin 25% 25gram/100mL 25 GM/100 ML IV.SOLN IVPB ONE (23:32)
[2016-12-02] MEDS ORDERED: Furosemide 40 MG/4 ML VIAL IVP ONE (23:32)
[2016-12-02] MEDS: Ipratropium/Albuterol Neb 3 ML IH PRN (23:39)
[2016-12-03] MEDS: Ipratropium/Albuterol Neb 3 ML IH PRN ×2 (03:39→10:40)
[2016-12-03] MEDS: Cefepime HCl 2,000 MG in D5% in Water (Mini-Bag+) 100 ML IVPB SCH ×2 (05:21→15:27)
[2016-12-03 05:22] LABS: Hematocrit 28.5 % (35.3-44.9); Hemoglobin 8.5 g/dL (11.5-15.4); Mean Corpuscular HGB Conc 29.8 g/dL (31.6-35.5); Mean Corpuscular Hemoglobin 27.6 pg (28.0-33.3); Mean Corpuscular Volume 92.5 fL (83.0-100.0); Mean Platelet Volume 9.3 fL (9.4-12.4); Platelet Count 327 K/mcL (140-400); Red Blood Count 3.08 M/mcL (3.82-4.97); Red Cell Distribution Width 14.1 % (11.5-14.5)
[2016-12-03 05:29] LABS: Calcium 9.3 mg/dL (8.6-10.8); INR 1.2; Potassium 3.6 mEq/L (3.5-4.5)
[2016-12-03] MEDS: Vancomycin 1,500 MG in D5% in Water 250 ML IVPB SCH (05:55)
[2016-12-03] MEDS: *HR* Enoxaparin 30 MG/0.3 ML SYRINGE SQ SCH ×2 (05:58→17:52)
[2016-12-03] MEDS: Levothyroxine 25 MCG TABLET PO SCH (05:58)
[2016-12-03] MEDS: Insulin LISPRO 300 UNITS/3 ML VIAL SQ SCH ×4 (08:47→20:48)
[2016-12-03] MEDS: Furosemide 40 MG/4 ML VIAL IVP SCH ×2 (08:53→17:52)
[2016-12-03] MEDS: *HR* OxyCODONE Immed Rel 5 MG TABLET PO SCH ×4 (08:54→20:52)
[2016-12-03] MEDS: Ascorbic Acid 500 MG TABLET PO SCH ×2 (08:54→20:51)
[2016-12-03] MEDS: Zinc Sulfate 220 MG CAPSULE PO SCH (08:54)
[2016-12-03] MEDS: *HR* Digoxin 0.125 MG TABLET PO SCH (08:54)
[2016-12-03] MEDS: Diltiazem CD (24hr) 120 MG CAPSULE PO SCH (08:55)
[2016-12-03] MEDS: Levofloxacin 750 MG/150 ML 750 MG/150 ML BAG IVPB SCH (08:55)
[2016-12-03] MEDS: Silver Sulfadiazine 50 GM TUBE TP SCH ×3 (11:08→20:52)
--- NOTE | 2016-12-03 14:19 | Internal Med Progress Note ---
Date of Encounter: 12/02/16 Time of Encounter: 14:20 - Assessment and plan (1) Pneumonia due to Gram-negative bacteria Current Visit: Yes Status: Acute Assessment and plan: Severe hypoxic and hypercapnic respiratory failure secondary to acute COPD exacerbation due to Possible gram-negative pneumonia The patient is maintaining her blood pressure Start Solu-Medrol IV Continue cefepime, Levaquin day 3 Discontinue vancomycin IV Continue BiPAP as needed Cultures pending CXR from 12/01/2016 was concerning for right lower lobe pneumonia, progressed. High risk due to respiratory failure DNR cc A (2) Closed intertrochanteric fracture of left femur Current Visit: Yes Status: Acute Assessment and plan: Patient admitted on 11/23/2016 with left intratrochanteric proximal hip fracture. She underwent left hip nailing on 11/26/2016. Continue PTOT SNF/ECF placement after hospital discharge Qualifiers: Encounter type: initial encounter Qualified Code(s): S72.142A - Displaced intertrochanteric fracture of left femur, initial encounter for closed fracture (3) Vulvar carcinoma Current Visit: Yes Status: Chronic Assessment and plan: chronic (4) Chronic atrial fibrillation Current Visit: Yes Status: Chronic Assessment and plan: with RVR and diastolic chf cardiology consulted Continue digoxin and Lasix IV, considered discontinuing Lasix either her kidney function worsens (5) HTN (hypertension) Current Visit: Yes Status: Chronic Assessment and plan: well controlled Qualifiers: Hypertension type: essential hypertension Qualified Code(s): I10 - Essential (primary) hypertension (6) COPD (chronic obstructive pulmonary disease) Current Visit: Yes Status: Chronic Assessment and plan: added steroids Qualifiers: COPD type: unspecified COPD Qualified Code(s): J44.9 - Chronic obstructive pulmonary disease, unspecified (7) Type 2 diabetes mellitus Current Visit: Yes Status: Chronic Assessment and plan: chronic on sliding scale Qualifiers: Diabetes mellitus complication status: with unspecified complications Diabetes mellitus terminal operator insulin use: unspecified terminal operator insulin use status Qualified Code(s): E11.8 - Type 2 diabetes mellitus with unspecified complications (8) Anemia Current Visit: Yes Status: Acute Assessment and plan: Acute blood loss anemia secondary to left intratrochanteric hip fracture and status post repair. Stable, no signs of bleeding Her admitting hemoglobin was around 9 Coumadin has been discontinued Qualifiers: Other causes of anemia: chronic disease, other Qualified Code(s): D63.8 - Anemia in other chronic diseases classified elsewhere (9) UTI (urinary tract infection) Current Visit: Yes Status: Acute Assessment and plan: Patient had abnormal UA on 11/24/2016 with urine culture growing Klebsiella pneumonia, jason sensitivity. Completed 3 days of ceftriaxone Qualifiers: Urinary tract infection type: acute cystitis Hematuria presence: without hematuria Qualified Code(s): N30.00 - Acute cystitis without hematuria (10) Congestive heart failure (CHF) Current Visit: Yes Status: Acute Assessment and plan: First chest x-ray chest x-ray demonstrating left side minimal pleural effusion with diffuse pulmonary edema. Echocardiogram from 11/23/2016 demonstrates suboptimal due to poor echocardiographic windows. Normal left ventricular systolic function with an EF of 65%. Mild concentric left ventricular hypertrophy. Indeterminate diastolic dysfunction due to atrial fibrillation. Normal right ventricular size and function. Moderate dilated left atrium. No significant valvular dysfunction. I will pulmonary hypertension. Continue IV Lasix -Strict ins and outs monitoring -Daily weights - Continue beta sherlyn Qualifiers: Congestive heart failure type: diastolic Congestive heart failure chronicity: acute on chronic Qualified Code(s): I50.33 - Acute on chronic diastolic (congestive) heart failure (11) Acute renal failure Current Visit: Yes Status: Acute Assessment and plan: Likely secondary to infection and the use of vancomycin Discontinue vancomycin, consider IV fluids, consider discontinuing Lasix if worse Qualifiers: Acute renal failure type: with other specified pathological lesion Qualified Code(s): N17.8 - Other acute kidney failure - Time Spent With Patient Greater than 35 minutes - Subjective Interval history: Very weak, she says she has been bringing up some clear phlegm Feeling less short of breath , on O2 now. Denies any abdominal pain, no chest pain, no fevers overnight. No dysuria or diarrhea - Constitutional Vitals: Temp Pulse Resp BP Pulse Ox 97.8 F 91 16 128/69 96 12/03/16 11:30 12/03/16 11:30 12/03/16 11:30 12/03/16 11:30 12/03/16 11:30 General appearance: Present: A&O X 3, answers questions appropriately - Head Head exam: Present: atraumatic, normocephalic - Eye Eye exam: Present: PERRL, conjuntiva pink, sclera anicteric Pupils: Present: PERRL - Neck Neck exam general surgery: Present: supple, trachea midline. Absent: lymphadenopathy - Respiratory Respiratory exam: Present: CTAB, rales, wheezes (Bibasilar crackles and wheezing ). Absent: accessory muscle use, rhonchi - Cardiovascular Cardiovascular exam: Present: RRR, +S1, +S2. Absent: diastolic murmur, gallop, rubs, systolic murmur - GI/Abdominal GI/Abdominal exam: Present: normal bowel sounds, soft, no peritoneal signs. Absent: distended, tenderness - Extremities Exam Extremities exam: Present: warm, radial pulses palpable and symetrical. Absent : calf tenderness, cyanotic, pedal edema Additional comments: Right upper extremity presents with swelling/edema and areas of ecchymosis - Neurological Exam Neurological exam: Present: CN II-XII intact, oriented X3, no focal deficits. Absent: pronater drift, facial droop, speech deficit - Skin Skin exam: Present: dry, intact Internal Medicine: Result - Labs CBC & Chem 7: 12/03/16 04:58 12/03/16 04:58 Labs: Short CBC 12/03/16 Range/Units 04:58 WBC 5.9 (4.3-11.1) K/mcL Hgb 8.5 L (11.5-15.4) g/dL Hct 28.5 L (35.3-44.9) % Plt Count 327 (140-400) K/mcL [facility] 12/03/16 04:58 Sodium 139 Potassium 3.6 Chloride 98 Carbon Dioxide 30 H BUN 19 Creatinine 1.13 H Glucose 79 Calcium 9.3 - ABG Interpretation ABG results: ABG ABG pH 7.42 pH Units (7.32-7.45) 12/02/16 05:50 ABG pCO2 67 mmHg (35-45) H 12/02/16 05:50 ABG pO2 94 mmHg (85-104) 12/02/16 05:50 ABG O2 Saturation 97 % (95-98) 12/02/16 05:50 PT/INR, D-dimer PT 13.0 Seconds (9.4-12.1) H 12/03/16 04:58 - VTE Documentation of Mechanical Device: Intermittent pneumatic compression device Consult Discharge Plan - Plan Referrals: Vinnie Davis [employer]PERVISOR [employer]AGE [Advanced Practice Nurse] - 12/11/16 9:00 am Al Gonzales MD [Primary Care Provider] -
[2016-12-03] MEDS: MethylPREDNISolone 40 MG/ML VIAL IVP SCH (15:33)
[2016-12-04] MEDS: MethylPREDNISolone 40 MG/ML VIAL IVP SCH ×3 (00:20→20:20)
[2016-12-04] MEDS: Cefepime HCl 2,000 MG in D5% in Water (Mini-Bag+) 100 ML IVPB SCH ×2 (03:48→14:18)
[2016-12-04 06:09] LABS: Hematocrit 28.2 % (35.3-44.9); Hemoglobin 8.7 g/dL (11.5-15.4); Mean Corpuscular HGB Conc 30.9 g/dL (31.6-35.5); Mean Corpuscular Hemoglobin 27.8 pg (28.0-33.3); Mean Corpuscular Volume 90.1 fL (83.0-100.0); Mean Platelet Volume 9.4 fL (9.4-12.4); Platelet Count 329 K/mcL (140-400); Red Blood Count 3.13 M/mcL (3.82-4.97); Red Cell Distribution Width 14.2 % (11.5-14.5)
[2016-12-04 06:24] LABS: Calcium 8.9 mg/dL (8.6-10.8); Potassium 4.1 mEq/L (3.5-4.5)
[2016-12-04] MEDS: *HR* Enoxaparin 30 MG/0.3 ML SYRINGE SQ SCH (06:46)
[2016-12-04] MEDS: Levothyroxine 25 MCG TABLET PO SCH (06:46)
[2016-12-04] MEDS: *HR* OxyCODONE Immed Rel 5 MG TABLET PO SCH ×4 (08:34→20:21)
[2016-12-04] MEDS: Zinc Sulfate 220 MG CAPSULE PO SCH (08:35)
[2016-12-04] MEDS: Diltiazem CD (24hr) 120 MG CAPSULE PO SCH (08:36)
[2016-12-04] MEDS: *HR* Digoxin 0.125 MG TABLET PO SCH (08:38)
[2016-12-04] MEDS: Ascorbic Acid 500 MG TABLET PO SCH ×2 (08:38→20:20)
[2016-12-04] MEDS: Insulin LISPRO 300 UNITS/3 ML VIAL SQ SCH ×4 (08:42→20:51)
[2016-12-04] MEDS: Furosemide 40 MG/4 ML VIAL IVP SCH (08:54)
[2016-12-04] MEDS: Silver Sulfadiazine 50 GM TUBE TP SCH ×3 (08:57→20:51)
[2016-12-04] MEDS ORDERED: Aminoglycoside Consult 1 EACH MC ONE (09:22)
[2016-12-04] MEDS: Ondansetron 4 MG/2 ML VIAL IVP PRN (09:45)
--- NOTE | 2016-12-04 13:40 | Internal Med Progress Note ---
Date of Encounter: 12/02/16 Time of Encounter: 13:38 - Assessment and plan (1) Pneumonia due to Gram-negative bacteria Current Visit: Yes Status: Acute Assessment and plan: Severe hypoxic and hypercapnic respiratory failure secondary to acute COPD exacerbation due to Possible gram-negative pneumonia The patient is maintaining her blood pressure Continue Solu-Medrol IV Continue cefepime, Levaquin day 4 Discontinued vancomycin IV on 12/02/16 Continue BiPAP as needed Cultures pending CXR from 12/01/2016 was concerning for right lower lobe pneumonia, progressed. High risk due to respiratory failure DNR cc A (2) Closed intertrochanteric fracture of left femur Current Visit: Yes Status: Acute Assessment and plan: Patient admitted on 11/23/2016 with left intratrochanteric proximal hip fracture. She underwent left hip nailing on 11/26/2016. Continue PTOT SNF/ECF placement after hospital discharge Qualifiers: Encounter type: initial encounter Qualified Code(s): S72.142A - Displaced intertrochanteric fracture of left femur, initial encounter for closed fracture (3) Vulvar carcinoma Current Visit: Yes Status: Chronic Assessment and plan: chronic (4) Chronic atrial fibrillation Current Visit: Yes Status: Chronic Assessment and plan: with RVR and diastolic chf cardiology consulted Hold digoxin Discontinue Lasix IV due to ARF (5) HTN (hypertension) Current Visit: Yes Status: Chronic Assessment and plan: well controlled Qualifiers: Hypertension type: essential hypertension Qualified Code(s): I10 - Essential (primary) hypertension (6) COPD (chronic obstructive pulmonary disease) Current Visit: Yes Status: Chronic Assessment and plan: added steroids Qualifiers: COPD type: unspecified COPD Qualified Code(s): J44.9 - Chronic obstructive pulmonary disease, unspecified (7) Type 2 diabetes mellitus Current Visit: Yes Status: Chronic Assessment and plan: chronic on sliding scale Qualifiers: Diabetes mellitus complication status: with unspecified complications Diabetes mellitus buttermaker insulin use: unspecified fci insulin use status Qualified Code(s): E11.8 - Type 2 diabetes mellitus with unspecified complications (8) Anemia Current Visit: Yes Status: Acute Assessment and plan: Acute blood loss anemia secondary to left intratrochanteric hip fracture and status post repair. Stable, no signs of bleeding Her admitting hemoglobin was around 9 Coumadin has been discontinued Qualifiers: Other causes of anemia: chronic disease, other Qualified Code(s): D63.8 - Anemia in other chronic diseases classified elsewhere (9) UTI (urinary tract infection) Current Visit: Yes Status: Acute Assessment and plan: Patient had abnormal UA on 11/24/2016 with urine culture growing Klebsiella pneumonia, jason sensitivity. Completed 3 days of ceftriaxone Qualifiers: Urinary tract infection type: acute cystitis Hematuria presence: without hematuria Qualified Code(s): N30.00 - Acute cystitis without hematuria (10) Congestive heart failure (CHF) Current Visit: Yes Status: Acute Assessment and plan: First chest x-ray chest x-ray demonstrating left side minimal pleural effusion with diffuse pulmonary edema. Echocardiogram from 11/23/2016 demonstrates suboptimal due to poor echocardiographic windows. Normal left ventricular systolic function with an EF of 65%. Mild concentric left ventricular hypertrophy. Indeterminate diastolic dysfunction due to atrial fibrillation. Normal right ventricular size and function. Moderate dilated left atrium. No significant valvular dysfunction. I will pulmonary hypertension. Hold Lasix -Strict ins and outs monitoring -Daily weights - Continue beta sherlyn Qualifiers: Congestive heart failure type: diastolic Congestive heart failure chronicity: acute on chronic Qualified Code(s): I50.33 - Acute on chronic diastolic (congestive) heart failure (11) Acute renal failure Current Visit: Yes Status: Acute Assessment and plan: Likely secondary to infection and the use of vancomycin and lasix, not improving Discontinued vancomycin and Lasix Qualifiers: Acute renal failure type: with other specified pathological lesion Qualified Code(s): N17.8 - Other acute kidney failure - Subjective Interval history: Still very weak, she says she has been bringing up more clear phlegm Feeling less short of breath , on O2 now ( not on BIPAP anymore). Denies any abdominal pain, no chest pain, no fevers overnight. No dysuria or diarrhea - Constitutional Vitals: Temp Pulse Resp BP Pulse Ox 98.6 F 59 18 115/69 98 12/04/16 11:19 12/04/16 11:30 12/04/16 11:19 12/04/16 11:19 12/04/16 11:19 General appearance: Present: A&O X 3, answers questions appropriately - Head Head exam: Present: atraumatic, normocephalic - Eye Eye exam: Present: PERRL, conjuntiva pink, sclera anicteric Pupils: Present: PERRL - Neck Neck exam general surgery: Present: supple, trachea midline. Absent: lymphadenopathy - Respiratory Respiratory exam: Present: CTAB, rales (Bibasilar crackles and wheezing), wheezes. Absent: accessory muscle use, rhonchi - Cardiovascular Cardiovascular exam: Present: RRR, +S1, +S2. Absent: diastolic murmur, gallop, rubs, systolic murmur - GI/Abdominal GI/Abdominal exam: Present: distended, normal bowel sounds, soft, no peritoneal signs. Absent: tenderness - Extremities Exam Extremities exam: Present: warm, radial pulses palpable and symetrical. Absent : calf tenderness, cyanotic, pedal edema Additional comments: Right upper extremity edema improving Boyd catheter in place - Neurological Exam Neurological exam: Present: CN II-XII intact, oriented X3, no focal deficits. Absent: pronater drift, facial droop, speech deficit - Skin Skin exam: Present: dry, intact Internal Medicine: Result - Labs CBC & Chem 7: 12/04/16 05:24 12/04/16 05:24 Labs: Short CBC 12/04/16 Range/Units 05:24 WBC 3.4 L (4.3-11.1) K/mcL Hgb 8.7 L (11.5-15.4) g/dL Hct 28.2 L (35.3-44.9) % Plt Count 329 (140-400) K/mcL BMP 12/04/16 05:24 Sodium 135 L Potassium 4.1 Chloride 95 L Carbon Dioxide 31 H BUN 19 Creatinine 1.40 H Glucose 186 H Calcium 8.9 - ABG Interpretation ABG results: ABG ABG pH 7.42 pH Units (7.32-7.45) 12/02/16 05:50 ABG pCO2 67 mmHg (35-45) H 12/02/16 05:50 ABG pO2 94 mmHg (85-104) 12/02/16 05:50 ABG O2 Saturation 97 % (95-98) 12/02/16 05:50 PT/INR, D-dimer PT 13.0 Seconds (9.4-12.1) H 12/03/16 04:58 - VTE Documentation of Mechanical Device: Intermittent pneumatic compression device Consult Discharge Plan - Plan Referrals: Vinnie Davis CNP [Advanced Practice Nurse] - 12/11/16 9:00 am Al Gonzales MD [Primary Care Provider] -
[2016-12-05] MEDS: Cefepime HCl 2,000 MG in D5% in Water (Mini-Bag+) 100 ML IVPB SCH ×2 (03:47→17:40)
[2016-12-05] MEDS: Levothyroxine 25 MCG TABLET PO SCH (05:29)
[2016-12-05] MEDS: *HR* Enoxaparin 30 MG/0.3 ML SYRINGE SQ SCH (05:29)
[2016-12-05 06:20] LABS: Hematocrit 28.3 % (35.3-44.9); Hemoglobin 8.8 g/dL (11.5-15.4); Mean Corpuscular HGB Conc 31.1 g/dL (31.6-35.5); Mean Corpuscular Hemoglobin 28.6 pg (28.0-33.3); Mean Corpuscular Volume 91.9 fL (83.0-100.0); Mean Platelet Volume 9.4 fL (9.4-12.4); Platelet Count 356 K/mcL (140-400); Red Blood Count 3.08 M/mcL (3.82-4.97); Red Cell Distribution Width 14.2 % (11.5-14.5)
[2016-12-05 06:44] LABS: Calcium 9.3 mg/dL (8.6-10.8); Potassium 4.1 mEq/L (3.5-4.5)
[2016-12-05] MEDS: *HR* OxyCODONE Immed Rel 5 MG TABLET PO SCH ×4 (09:33→21:23)
[2016-12-05] MEDS: Ascorbic Acid 500 MG TABLET PO SCH ×2 (09:33→21:15)
[2016-12-05] MEDS: Zinc Sulfate 220 MG CAPSULE PO SCH (09:33)
[2016-12-05] MEDS: Diltiazem CD (24hr) 120 MG CAPSULE PO SCH (09:33)
[2016-12-05] MEDS: MethylPREDNISolone 40 MG/ML VIAL IVP SCH ×2 (09:34→21:15)
[2016-12-05] MEDS: Silver Sulfadiazine 50 GM TUBE TP SCH ×3 (09:34→21:20)
[2016-12-05] MEDS: Insulin LISPRO 300 UNITS/3 ML VIAL SQ SCH ×4 (09:35→21:22)
--- NOTE | 2016-12-05 10:51 | Internal Med Progress Note ---
Date of Encounter: 12/05/16 Time of Encounter: 10:49 - Assessment and plan (1) Pneumonia due to Gram-negative bacteria Current Visit: Yes Status: Acute Assessment and plan: Severe hypoxic and hypercapnic respiratory failure secondary to acute COPD exacerbation due to Possible gram-negative pneumonia The patient is maintaining her blood pressure Continue Solu-Medrol IV Continue cefepime, Levaquin day 5 Discontinued vancomycin IV on 12/02/16 Continue BiPAP as needed Cultures pending CXR from 12/01/2016 was concerning for right lower lobe pneumonia, progressed. High risk due to respiratory failure DNR cc A (2) Acute renal failure Current Visit: Yes Status: Acute Assessment and plan: Likely secondary to infection and the use of vancomycin and lasix, not improving Discontinued vancomycin and Lasix no IVF as she appears congested Qualifiers: Acute renal failure type: with other specified pathological lesion Qualified Code(s): N17.8 - Other acute kidney failure (3) Closed intertrochanteric fracture of left femur Current Visit: Yes Status: Acute Assessment and plan: Patient admitted on 11/23/2016 with left intratrochanteric proximal hip fracture. She underwent left hip nailing on 11/26/2016. Continue PTOT SNF/ECF placement after hospital discharge Qualifiers: Encounter type: initial encounter Qualified Code(s): S72.142A - Displaced intertrochanteric fracture of left femur, initial encounter for closed fracture (4) Vulvar carcinoma Current Visit: Yes Status: Chronic Assessment and plan: chronic (5) Chronic atrial fibrillation Current Visit: Yes Status: Chronic Assessment and plan: with RVR and diastolic chf cardiology consulted Hold digoxin due to bradycardia Discontinue Lasix IV due to ARF (6) HTN (hypertension) Current Visit: Yes Status: Chronic Assessment and plan: well controlled Qualifiers: Hypertension type: essential hypertension Qualified Code(s): I10 - Essential (primary) hypertension (7) COPD (chronic obstructive pulmonary disease) Current Visit: Yes Status: Chronic Assessment and plan: added steroids Qualifiers: COPD type: unspecified COPD Qualified Code(s): J44.9 - Chronic obstructive pulmonary disease, unspecified (8) Type 2 diabetes mellitus Current Visit: Yes Status: Chronic Assessment and plan: chronic on sliding scale Qualifiers: Diabetes mellitus complication status: with unspecified complications Diabetes mellitus fci insulin use: unspecified fci insulin use status Qualified Code(s): E11.8 - Type 2 diabetes mellitus with unspecified complications (9) Anemia Current Visit: Yes Status: Acute Assessment and plan: Acute blood loss anemia secondary to left intratrochanteric hip fracture and status post repair. Stable, no signs of bleeding Her admitting hemoglobin was around 9 Coumadin has been discontinued Qualifiers: Other causes of anemia: chronic disease, other Qualified Code(s): D63.8 - Anemia in other chronic diseases classified elsewhere (10) UTI (urinary tract infection) Current Visit: Yes Status: Acute Assessment and plan: Patient had abnormal UA on 11/24/2016 with urine culture growing Klebsiella pneumonia, jason sensitivity. Completed 3 days of ceftriaxone Qualifiers: Urinary tract infection type: acute cystitis Hematuria presence: without hematuria Qualified Code(s): N30.00 - Acute cystitis without hematuria (11) Congestive heart failure (CHF) Current Visit: Yes Status: Acute Assessment and plan: First chest x-ray chest x-ray demonstrating left side minimal pleural effusion with diffuse pulmonary edema. Echocardiogram from 11/23/2016 demonstrates suboptimal due to poor echocardiographic windows. Normal left ventricular systolic function with an EF of 65%. Mild concentric left ventricular hypertrophy. Indeterminate diastolic dysfunction due to atrial fibrillation. Normal right ventricular size and function. Moderate dilated left atrium. No significant valvular dysfunction. . Hold Lasix for now -Strict ins and outs monitoring -Daily weights - Continue beta sherlyn Qualifiers: Congestive heart failure type: diastolic Congestive heart failure chronicity: acute on chronic Qualified Code(s): I50.33 - Acute on chronic diastolic (congestive) heart failure - Subjective Interval history: Feeling weak, she says she has been bringing up clear phlegm Feeling less short of breath , on O2 now ( not on BIPAP anymore). Denies any abdominal pain, no chest pain, no fevers overnight. No dysuria or diarrhea - Constitutional Vitals: Temp Pulse Resp BP Pulse Ox 98.1 F 86 22 131/72 99 12/05/16 07:45 12/05/16 10:21 12/05/16 10:21 12/05/16 10:21 12/05/16 10:21 General appearance: Present: A&O X 3, answers questions appropriately - Head Head exam: Present: atraumatic, normocephalic - Eye Eye exam: Present: PERRL, conjuntiva pink, sclera anicteric Pupils: Present: PERRL - Neck Neck exam general surgery: Present: supple, trachea midline. Absent: lymphadenopathy - Respiratory Respiratory exam: Present: CTAB, rales (Bilateral fine crackles with less wheezing). Absent: accessory muscle use, rhonchi, wheezes - Cardiovascular Cardiovascular exam: Present: RRR, +S1, +S2. Absent: diastolic murmur, gallop, rubs, systolic murmur - GI/Abdominal GI/Abdominal exam: Present: normal bowel sounds, soft, no peritoneal signs. Absent: distended, tenderness - Extremities Exam Extremities exam: Present: warm, radial pulses palpable and symetrical. Absent : calf tenderness, cyanotic, pedal edema Additional comments: Left hip wounds without any infection or hematoma - Neurological Exam Neurological exam: Present: CN II-XII intact, oriented X3, no focal deficits. Absent: pronater drift, facial droop, speech deficit - Skin Skin exam: Present: dry, intact Additional comments: Boyd catheter in place, right upper extremity appears less edematous Internal Medicine: Result - Labs CBC & Chem 7: 12/05/16 06:07 12/05/16 06:07 Labs: Short CBC 12/05/16 Range/Units 06:07 WBC 5.5 D (4.3-11.1) K/mcL Hgb 8.8 L (11.5-15.4) g/dL Hct 28.3 L (35.3-44.9) % Plt Count 356 (140-400) K/mcL BMP 12/05/16 06:07 Sodium 138 Potassium 4.1 Chloride 97 L Carbon Dioxide 31 H BUN 28 H Creatinine 1.43 H Glucose 177 H Calcium 9.3 - ABG Interpretation ABG results: ABG ABG pH 7.42 pH Units (7.32-7.45) 12/02/16 05:50 ABG pCO2 67 mmHg (35-45) H 12/02/16 05:50 ABG pO2 94 mmHg (85-104) 12/02/16 05:50 ABG O2 Saturation 97 % (95-98) 12/02/16 05:50 PT/INR, D-dimer PT 13.0 Seconds (9.4-12.1) H 12/03/16 04:58 - VTE Documentation of Mechanical Device: Venous foot pump, device Consult Discharge Plan - Plan Referrals: Vinnie Davis CNP [Advanced Practice Nurse] - 12/11/16 9:00 am Al Gonzales MD [Primary Care Provider] -
--- NOTE | 2016-12-05 13:11 | Orthopedics Progress Note ---
Date of Encounter: 12/05/16 Time of Encounter: 13:09 Subjective Principal diagnosis: Intertrochanteric fracture left hip Interval history: 11/25/2016. Patient is seen in follow-up regarding her left hip fracture. Pain management has been good. Vital signs are stable. Patient is afebrile. Exam is unchanged. Hemoglobin is 8.1. Platelet count remains 244. PTT is 14.1 with an INR of 1.3. Urine culture is growing a gram-negative kristine. Patient has been on ceftriaxone. Impression: Intertrochanteric fracture left hip Plan: We will proceed with intramedullary nailing of her left hip tomorrow. Informed consent has been obtained. Preoperative orders have been written. 11/27/2016. Patient is postop day #1 from intramedullary nailing of her left hip. She is having less pain today than preop. Vital signs are stable. She does have a pulse of about 110. History of chronic A. fib. Afebrile. Dressings show only minor serous spotting. Leg is somewhat edematous. Hemoglobin is 8.1, stable. Platelet count normal. Impression: POD #1 IM nailing left hip, orthopedic status stable Recommendation: Can ambulate patient as tolerated. We will continue to monitor. healthcare advisory services manager for discharge planning process. 11/28/2016. Patient states she is feeling better. She denies any arm pain but has noticed increased swelling in the right arm just recently. Vital signs are stable with a pulse of just over 100. She is afebrile. Dressings are clean and dry. Right upper extremity is markedly edematous and somewhat ecchymotic from the elbow distal. Neurosensory exam is intact. Hemoglobin is stable at 8.4. Platelets remained normal at 273. White count is normal at 5.1. A recently completed chest x-ray shows no overt failure nor infiltrative process. Right upper extremity ultrasound results are pending. Impression: POD #2 IM nailing left hip, orthopedic status stable. Recommendation: as noted previously patient can ambulate as tolerated. Patient is currently on Lovenox and warfarin until her pro time is appropriate. No evidence of a significant bleed with these medications in use. 11/30/2016. Patient is postop day #4 IM nailing left hip. No complaints referable to the left hip. Vital signs with variable tachycardia currently about 90. He is afebrile at 99.1. Hip and suggest dressings remain clean and dry. Right upper extremity appears to be somewhat improved with regards to swelling. Hemoglobin stable at 10.1. White blood cell count is normal platelet count normal. Impression: POD #4 IM nailing left hip, orthopedic status remained stable. Recommendation: Can ambulate as tolerated. Orthopedic status is stable. We will follow as needed. 12/01/2016. Patient denies any significant hip pain. She is having some dyspnea. She has been moved to 2 N. secondary to hypoxia. Vital Signs stable. Pulse ox currently about 95. Hip dressings clean and dry hemoglobin stable at 9.7. White blood cell count normal. Impression: POD #5 IM nailing left hip, orthopedic status stable Recommendation: Can ambulate when able. Encourage use of right hand to allow muscle pumping to help eliminate edema. 12/05/2016. Patient is seen in follow-up regarding her left hip fracture. She is denies any pain. Dressings are clean dry and intact. Recommendation: Intact dressings patient can shower. Patient is weightbearing as tolerated. Do not need any hip precautions. Patient will need a follow-up with me in a few weeks after discharge. Objective Vital signs: Vital Signs Temp Pulse Resp BP Pulse Ox 12/05/16 12:34 69 12/05/16 11:20 97.9 F 69 18 141/78 100 12/05/16 10:21 86 22 131/72 99 12/05/16 09:10 98 97 12/05/16 07:45 98.1 F 104 20 138/72 99 12/05/16 03:49 97.8 F 57 22 148/85 97 12/05/16 00:20 61 12/05/16 00:10 98.0 F 73 18 142/90 98 12/04/16 20:50 62 12/04/16 20:37 98.3 F 63 22 130/87 98 12/04/16 16:00 62 12/04/16 15:38 97.8 F 35 17 119/79 90 Intake and Output 12/04/16 12/05/16 12/05/16 23:59 07:59 15:59 Intake Total 470 / 470 100 / 100 360 / 360 Output Total 240 / 240 Balance 470 / 470 -140 / -140 360 / 360 Intake: IV Fluids 100 / 100 Maxipime 2,000 MG In 100 / 100 Dextrose 5% (Minibag+) 100 ML 100 ML @ 200 mls/ hr IVPB Q12H [facility]BER Rx#: [id number] Oral 470 / 470 0 / 0 360 / 360 Output: Catheter 240 / 240 Other: Meal Breakfast Breakfast Percent of Meal Consumed 25% 25% Weight 92.4 kg Blood Glucose* 186 168 174 Patient Weight 12/05/16 23:59 Weight 92.4 kg - Labs CBC & BMP: 12/05/16 06:07 12/05/16 06:07 Labs: Abnormal lab results RBC 3.08 M/mcL (3.82-4.97) L 12/05/16 06:07 Hgb 8.8 g/dL (11.5-15.4) L 12/05/16 06:07 Hct 28.3 % (35.3-44.9) L 12/05/16 06:07 MCHC 31.1 g/dL (31.6-35.5) L 12/05/16 06:07 PT 13.0 Seconds (9.4-12.1) H 12/03/16 04:58 APTT 19.0 Seconds (26.0-36.0) L 11/30/16 11:44 ABG pCO2 67 mmHg (35-45) H 12/02/16 05:50 ABG HCO3 43.5 mEQ/L (21-27) H 12/02/16 05:50 ABG Total CO2 45.6 mEq/L (20-26) H 12/02/16 05:50 ABG Base Excess 16.8 mEq/L (-2.0 to 3.0) H 12/02/16 05:50 Chloride 97 mEq/L (98-109) L 12/05/16 06:07 Carbon Dioxide 31 mEq/L (19-29) H 12/05/16 06:07 BUN 28 mg/dL (7-20) H 12/05/16 06:07 Creatinine 1.43 mg/dL (0.57-1.11) H 12/05/16 06:07 Est GFR ( Amer) 43 (> 60) L 12/05/16 06:07 Est GFR (Non-Af Amer) 35 (> 60) L 12/05/16 06:07 Glucose 177 mg/dL (70-99) H 12/05/16 06:07 POC Glucose 186 (58-89) H 12/04/16 20:42 B-Natriuretic Peptide 220 pg/mL (0-100) H 12/01/16 09:44 Serum Total Protein 5.7 g/dL (6.0-8.3) L 12/02/16 05:29 Albumin 1.7 g/dL (3.5-5.0) L 12/02/16 05:29 Globulin 4.0 g/dL (2.4-3.5) H 12/02/16 05:29 Albumin/Globulin Ratio 0.4 (1.1-2.2) L 12/02/16 05:29 HDL Cholesterol 35 mg/dL (40-59) L 11/24/16 06:13 Urine Clarity Cloudy (Clear) A 11/24/16 04:20 Urine Blood Trace (Negative) H 11/24/16 04:20 Urine Nitrite Positive (Negative) A 11/24/16 04:20 Ur Leukocyte Esterase Large (Negative) H 11/24/16 04:20 Urine Microscopic RBC 5-15 per hpf (0-3) H 11/24/16 04:20 Urine Microscopic WBC TNTC per hpf (0-3) H 11/24/16 04:20 Ur Squamous Epith Cells Many per lpf (None-Few) H 11/24/16 04:20 Urine Bacteria Many per hpf (None-Few) H 11/24/16 04:20 Ur Culture Indicated? YES (NO) A 11/24/16 04:20 Stool Occult Blood Positive (Negative) A 11/23/16 18:45 - VTE Documentation of Mechanical Device: Venous foot pump, device Consult Discharge Plan - Plan Referrals: Vinnie Davis CNP [Advanced Practice Nurse] - 12/11/16 9:00 am Al Gonzales MD [Primary Care Provider] -
[2016-12-05] MEDS: Levofloxacin 750 MG/150 ML 750 MG/150 ML BAG IVPB SCH (15:32)
[2016-12-06] MEDS: Cefepime HCl 2,000 MG in D5% in Water (Mini-Bag+) 100 ML IVPB SCH (04:33)
[2016-12-06] MEDS: Levothyroxine 25 MCG TABLET PO SCH (06:28)
[2016-12-06] MEDS: *HR* Enoxaparin 30 MG/0.3 ML SYRINGE SQ SCH (06:29)
[2016-12-06 06:49] LABS: Calcium 8.9 mg/dL (8.6-10.8)
[2016-12-06] MEDS: Ascorbic Acid 500 MG TABLET PO SCH ×2 (09:00→21:41)
[2016-12-06] MEDS: *HR* OxyCODONE Immed Rel 5 MG TABLET PO SCH ×4 (09:00→21:34)
[2016-12-06] MEDS: Diltiazem CD (24hr) 120 MG CAPSULE PO SCH (09:00)
[2016-12-06] MEDS: MethylPREDNISolone 40 MG/ML VIAL IVP SCH ×2 (09:01→21:34)
[2016-12-06] MEDS: Zinc Sulfate 220 MG CAPSULE PO SCH (09:01)
[2016-12-06] MEDS: Silver Sulfadiazine 50 GM TUBE TP SCH ×3 (09:01→21:36)
[2016-12-06] MEDS: Insulin LISPRO 300 UNITS/3 ML VIAL SQ SCH ×4 (09:02→21:33)
[2016-12-06] MEDS: Ondansetron 4 MG/2 ML VIAL IVP PRN (10:06)
--- NOTE | 2016-12-06 10:08 | Internal Med Progress Note ---
Date of Encounter: 12/06/16 Time of Encounter: 10:05 - Assessment and plan (1) Pneumonia due to Gram-negative bacteria Current Visit: Yes Status: Acute Assessment and plan: Acute Severe hypoxic and hypercapnic respiratory failure secondary to acute COPD exacerbation due to Possible gram-negative pneumonia The patient is maintaining her blood pressure Continue Solu-Medrol IV Continue cefepime, Levaquin day 6 Discontinued vancomycin IV on 12/02/16 Continue BiPAP as needed Cultures pending CXR from 12/01/2016 was concerning for right lower lobe pneumonia, progressed. High risk due to respiratory failure DNR cc A (2) Acute renal failure Current Visit: Yes Status: Acute Assessment and plan: Likely secondary to infection and the use of vancomycin and lasix, not improving Discontinued vancomycin and Lasix resume IVF as she appears less congested Had an acute diastolic CHF exacerbation and lasix was being held due to Acute on chronic renal failure Qualifiers: Acute renal failure type: with other specified pathological lesion Qualified Code(s): N17.8 - Other acute kidney failure (3) Closed intertrochanteric fracture of left femur Current Visit: Yes Status: Acute Assessment and plan: Patient admitted on 11/23/2016 with left intratrochanteric proximal hip fracture. She underwent left hip nailing on 11/26/2016. Continue PTOT SNF/ECF placement after hospital discharge Qualifiers: Encounter type: initial encounter Qualified Code(s): S72.142A - Displaced intertrochanteric fracture of left femur, initial encounter for closed fracture (4) Vulvar carcinoma Current Visit: Yes Status: Chronic Assessment and plan: chronic (5) Chronic atrial fibrillation Current Visit: Yes Status: Chronic Assessment and plan: with RVR and diastolic chf cardiology consulted Hold digoxin due to bradycardia and renal failure continue metoprolol (6) HTN (hypertension) Current Visit: Yes Status: Chronic Assessment and plan: well controlled Qualifiers: Hypertension type: essential hypertension Qualified Code(s): I10 - Essential (primary) hypertension (7) COPD (chronic obstructive pulmonary disease) Current Visit: Yes Status: Chronic Assessment and plan: added steroids Qualifiers: COPD type: unspecified COPD Qualified Code(s): J44.9 - Chronic obstructive pulmonary disease, unspecified (8) Type 2 diabetes mellitus Current Visit: Yes Status: Chronic Assessment and plan: chronic on sliding scale Qualifiers: Diabetes mellitus complication status: with unspecified complications Diabetes mellitus correction insulin use: unspecified correction insulin use status Qualified Code(s): E11.8 - Type 2 diabetes mellitus with unspecified complications (9) Anemia Current Visit: Yes Status: Acute Assessment and plan: Acute blood loss anemia secondary to left intratrochanteric hip fracture and status post repair. Stable, no signs of bleeding Her admitting hemoglobin was around 9 Coumadin has been discontinued Qualifiers: Other causes of anemia: chronic disease, other Qualified Code(s): D63.8 - Anemia in other chronic diseases classified elsewhere (10) UTI (urinary tract infection) Current Visit: Yes Status: Acute Assessment and plan: Patient had abnormal UA on 11/24/2016 with urine culture growing Klebsiella pneumonia, jason sensitivity. Completed 3 days of ceftriaxone Qualifiers: Urinary tract infection type: acute cystitis Hematuria presence: without hematuria Qualified Code(s): N30.00 - Acute cystitis without hematuria (11) Congestive heart failure (CHF) Current Visit: Yes Status: Acute Assessment and plan: First chest x-ray chest x-ray demonstrating left side minimal pleural effusion with diffuse pulmonary edema. Echocardiogram from 11/23/2016 demonstrates suboptimal due to poor echocardiographic windows. Normal left ventricular systolic function with an EF of 65%. Mild concentric left ventricular hypertrophy. Indeterminate diastolic dysfunction due to atrial fibrillation. Normal right ventricular size and function. Moderate dilated left atrium. No significant valvular dysfunction. . Hold Lasix -Strict ins and outs monitoring -Daily weights - Continue beta sherlyn Qualifiers: Congestive heart failure type: diastolic Congestive heart failure chronicity: acute on chronic Qualified Code(s): I50.33 - Acute on chronic diastolic (congestive) heart failure - Subjective Interval history: Feeling less weak, still bringing up clear phlegm, has a dry cough Feeling less short of breath , on O2 now ( not on BIPAP anymore). Denies any abdominal pain, no chest pain, no fevers overnight. No dysuria or diarrhea - Constitutional Vitals: Temp Pulse Resp BP Pulse Ox 98.2 F 76 18 140/82 96 12/06/16 06:53 12/06/16 06:53 12/06/16 06:53 12/06/16 06:53 12/06/16 06:53 General appearance: Present: A&O X 3, answers questions appropriately - Head Head exam: Present: atraumatic, normocephalic - Eye Eye exam: Present: PERRL, conjuntiva pink, sclera anicteric Pupils: Present: PERRL - Neck Neck exam general surgery: Present: supple, trachea midline. Absent: lymphadenopathy - Respiratory Respiratory exam: Present: CTAB, rales (left basilar crackles mild wheezing). Absent: accessory muscle use, rhonchi, wheezes - Cardiovascular Cardiovascular exam: Present: RRR, +S1, +S2. Absent: diastolic murmur, gallop, rubs, systolic murmur - GI/Abdominal GI/Abdominal exam: Present: normal bowel sounds, soft, no peritoneal signs. Absent: distended, tenderness - Extremities Exam Extremities exam: Present: warm, radial pulses palpable and symetrical. Absent : calf tenderness, cyanotic, pedal edema Additional comments: left hip surgical wound without signs of infection - Neurological Exam Neurological exam: Present: CN II-XII intact, oriented X3, no focal deficits. Absent: pronater drift, facial droop, speech deficit - Skin Skin exam: Present: dry, intact Internal Medicine: Result - Labs CBC & Chem 7: 12/05/16 06:07 12/06/16 06:04 Labs: BMP 12/06/16 06:04 Sodium 138 Potassium 5.0 H Chloride 100 Carbon Dioxide 28 BUN 37 H Creatinine 1.51 H Glucose 191 H Calcium 8.9 - ABG Interpretation ABG results: ABG ABG pH 7.42 pH Units (7.32-7.45) 12/02/16 05:50 ABG pCO2 67 mmHg (35-45) H 12/02/16 05:50 ABG pO2 94 mmHg (85-104) 12/02/16 05:50 ABG O2 Saturation 97 % (95-98) 12/02/16 05:50 PT/INR, D-dimer PT 13.0 Seconds (9.4-12.1) H 12/03/16 04:58 - VTE Documentation of Mechanical Device: Venous foot pump, device Consult Discharge Plan - Plan Referrals: Vinnie Davis CNP [Advanced Practice Nurse] - 12/11/16 9:00 am Al Gonzales MD [Primary Care Provider] -
[2016-12-06] MEDS: 0.9 % Sodium Chloride 1,000 ML IVC SCH (11:59)
[2016-12-07 05:19] LABS: Hematocrit 29.5 % (35.3-44.9); Hemoglobin 8.9 g/dL (11.5-15.4); Immature Platelets 2.4 % (1.1-6.1); Mean Corpuscular HGB Conc 30.2 g/dL (31.6-35.5); Mean Corpuscular Hemoglobin 27.6 pg (28.0-33.3); Mean Corpuscular Volume 91.6 fL (83.0-100.0); Mean Platelet Volume 9.2 fL (9.4-12.4); Red Blood Count 3.22 M/mcL (3.82-4.97); Red Cell Distribution Width 14.3 % (11.5-14.5)
[2016-12-07 05:33] LABS: Calcium 9.2 mg/dL (8.6-10.8); Potassium 4.5 mEq/L (3.5-4.5)
[2016-12-07] MEDS: Cefepime HCl 2,000 MG in D5% in Water (Mini-Bag+) 100 ML IVPB SCH (05:56)
[2016-12-07] MEDS: Levothyroxine 25 MCG TABLET PO SCH (05:57)
[2016-12-07] MEDS: *HR* Enoxaparin 30 MG/0.3 ML SYRINGE SQ SCH (05:57)
[2016-12-07] MEDS: 0.9 % Sodium Chloride 1,000 ML IVC SCH (06:42)
[2016-12-07] MEDS: Insulin LISPRO 300 UNITS/3 ML VIAL SQ SCH ×4 (09:17→21:10)
[2016-12-07] MEDS: Ascorbic Acid 500 MG TABLET PO SCH ×2 (09:19→21:09)
[2016-12-07] MEDS: *HR* OxyCODONE Immed Rel 5 MG TABLET PO SCH ×4 (09:19→21:09)
[2016-12-07] MEDS: Silver Sulfadiazine 50 GM TUBE TP SCH ×3 (09:20→21:10)
[2016-12-07] MEDS: MethylPREDNISolone 40 MG/ML VIAL IVP SCH ×2 (09:20→21:10)
[2016-12-07] MEDS: Diltiazem CD (24hr) 120 MG CAPSULE PO SCH (09:20)
[2016-12-07] MEDS: *HR* Digoxin 0.125 MG TABLET PO SCH (09:20)
[2016-12-07] MEDS: Zinc Sulfate 220 MG CAPSULE PO SCH (09:20)
--- NOTE | 2016-12-07 10:01 | Internal Med Progress Note ---
Date of Encounter: 12/07/16 Time of Encounter: 09:56 - Assessment and plan (1) Pneumonia due to Gram-negative bacteria Current Visit: Yes Status: Acute Assessment and plan: Acute Severe hypoxic and hypercapnic respiratory failure secondary to acute COPD exacerbation due to Possible gram-negative pneumonia The patient is maintaining her blood pressure Continue Solu-Medrol IV Continue cefepime, Levaquin day 7 (complete last doses today and discontinue) Discontinued vancomycin IV on 12/02/16 Continue BiPAP as needed Blood Cultures : no growth CXR from 12/01/2016 was concerning for right lower lobe pneumonia, progressed. High risk due to respiratory failure DNR cc A (2) Acute renal failure Current Visit: Yes Status: Acute Assessment and plan: Likely secondary to infection and the use of vancomycin and lasix, not improving Discontinued vancomycin and Lasix 3 days ago resumed IVF yesterday at 50 cc/h for 1 Lt only as she appeared less congested. Call nephrology consult with Dr Mi send Urine Na creat Had an acute diastolic CHF exacerbation and lasix was being held due to Acute on chronic renal failure Qualifiers: Acute renal failure type: with other specified pathological lesion Qualified Code(s): N17.8 - Other acute kidney failure (3) Closed intertrochanteric fracture of left femur Current Visit: Yes Status: Acute Assessment and plan: Patient admitted on 11/23/2016 with left intratrochanteric proximal hip fracture. She underwent left hip nailing on 11/26/2016. Continue PTOT SNF/ECF placement after hospital discharge Qualifiers: Encounter type: initial encounter Qualified Code(s): S72.142A - Displaced intertrochanteric fracture of left femur, initial encounter for closed fracture (4) Vulvar carcinoma Current Visit: Yes Status: Chronic Assessment and plan: chronic (5) Chronic atrial fibrillation Current Visit: Yes Status: Chronic Assessment and plan: with RVR and diastolic chf cardiology consulted Held digoxin due to bradycardia and renal failure , may resume digoxin as she became tachycardic (110-130s during examination ) continue metoprolol (6) HTN (hypertension) Current Visit: Yes Status: Chronic Assessment and plan: well controlled Qualifiers: Hypertension type: essential hypertension Qualified Code(s): I10 - Essential (primary) hypertension (7) COPD (chronic obstructive pulmonary disease) Current Visit: Yes Status: Chronic Assessment and plan: added steroids Qualifiers: COPD type: unspecified COPD Qualified Code(s): J44.9 - Chronic obstructive pulmonary disease, unspecified (8) Type 2 diabetes mellitus Current Visit: Yes Status: Chronic Assessment and plan: chronic on sliding scale Qualifiers: Diabetes mellitus complication status: with unspecified complications Diabetes mellitus supervisor intermediates insulin use: unspecified [facility] insulin use status Qualified Code(s): E11.8 - Type 2 diabetes mellitus with unspecified complications (9) Anemia Current Visit: Yes Status: Acute Assessment and plan: Acute blood loss anemia secondary to left intratrochanteric hip fracture and status post repair. Stable, no signs of bleeding Her admitting hemoglobin was around 9 Coumadin has been discontinued Qualifiers: Other causes of anemia: chronic disease, other Qualified Code(s): D63.8 - Anemia in other chronic diseases classified elsewhere (10) UTI (urinary tract infection) Current Visit: Yes Status: Acute Assessment and plan: Patient had abnormal UA on 11/24/2016 with urine culture growing Klebsiella pneumonia, jason sensitivity. Completed 3 days of ceftriaxone Qualifiers: Urinary tract infection type: acute cystitis Hematuria presence: without hematuria Qualified Code(s): N30.00 - Acute cystitis without hematuria (11) Congestive heart failure (CHF) Current Visit: Yes Status: Acute Assessment and plan: First chest x-ray chest x-ray demonstrating left side minimal pleural effusion with diffuse pulmonary edema. Echocardiogram from 11/23/2016 demonstrates suboptimal due to poor echocardiographic windows. Normal left ventricular systolic function with an EF of 65%. Mild concentric left ventricular hypertrophy. Indeterminate diastolic dysfunction due to atrial fibrillation. Normal right ventricular size and function. Moderate dilated left atrium. No significant valvular dysfunction. . Hold Lasix -Strict ins and outs monitoring -Daily weights - Continue beta sherlyn Qualifiers: Congestive heart failure type: diastolic Congestive heart failure chronicity: acute on chronic Qualified Code(s): I50.33 - Acute on chronic diastolic (congestive) heart failure - Time Spent With Patient Greater than 35 minutes - Subjective Interval history: Feeling weak, still bringing up clear phlegm, has a dry cough Feeling short of breath on O2 ( not on BIPAP anymore). Denies any abdominal pain, no chest pain, no fevers overnight. No dysuria or diarrhea - Constitutional Vitals: Temp Pulse Resp BP Pulse Ox 97.4 F L 108 18 132/90 97 12/07/16 07:06 12/07/16 07:06 12/07/16 07:06 12/07/16 07:06 12/07/16 07:06 General appearance: Present: A&O X 3, answers questions appropriately - Head Head exam: Present: atraumatic, normocephalic - Eye Eye exam: Present: PERRL, conjuntiva pink, sclera anicteric Pupils: Present: PERRL - Neck Neck exam general surgery: Present: supple, trachea midline. Absent: lymphadenopathy - Respiratory Respiratory exam: Present: CTAB, rales (left basilar crackles). Absent: accessory muscle use, rhonchi, wheezes - Cardiovascular Cardiovascular exam: Present: RRR, +S1, +S2. Absent: diastolic murmur, gallop, rubs, systolic murmur - GI/Abdominal GI/Abdominal exam: Present: normal bowel sounds, soft, no peritoneal signs. Absent: distended, tenderness - Extremities Exam Extremities exam: Present: warm, radial pulses palpable and symetrical. Absent : calf tenderness, cyanotic, pedal edema - Neurological Exam Neurological exam: Present: CN II-XII intact, oriented X3, no focal deficits. Absent: pronater drift, facial droop, speech deficit Additional comments: vang catheter right upper extremity edema improving - Skin Skin exam: Present: dry. Absent: intact Internal Medicine: Result - Labs CBC & Chem 7: 12/07/16 05:09 12/07/16 05:09 Labs: Short CBC 12/07/16 Range/Units 05:09 WBC 3.9 L (4.3-11.1) K/mcL Hgb 8.9 L (11.5-15.4) g/dL Hct 29.5 L (35.3-44.9) % Plt Count 375 (140-400) K/mcL BMP 12/07/16 05:09 Sodium 136 Potassium 4.5 Chloride 99 Carbon Dioxide 28 BUN 39 H Creatinine 1.40 H Glucose 186 H Calcium 9.2 - ABG Interpretation ABG results: ABG ABG pH 7.42 pH Units (7.32-7.45) 12/02/16 05:50 ABG pCO2 67 mmHg (35-45) H 12/02/16 05:50 ABG pO2 94 mmHg (85-104) 12/02/16 05:50 ABG O2 Saturation 97 % (95-98) 12/02/16 05:50 PT/INR, D-dimer PT 13.0 Seconds (9.4-12.1) H 12/03/16 04:58 - VTE Documentation of Mechanical Device: Venous foot pump, device Consult Discharge Plan - Plan Referrals: Vinnie Davis CNP [Advanced Practice Nurse] - 12/11/16 9:00 am Al Gonzales MD [Primary Care Provider] -
--- NOTE | 2016-12-07 10:41 | Nephrology Consult Note ---
Date of Encounter: 12/07/16 Time of Encounter: 10:39 Assessment and Plan (1) Acute kidney failure, unspecified Current Visit: Yes Status: Acute The patient has acute kidney injury superimposed on underlying mild stage II to stage III chronic kidney disease. She seems to be improving after the discontinuation of Lasix and vancomycin. I would continue to leave her off those medications at this time. She is receiving antibiotics for her pneumonia and urinary tract infection. She seems to be stable from a cardiac perspective. I am reluctant to give her any additional IV fluid at this time. As long as her serum creatinine continues to improve I think we can just monitor her. Obviously we should avoid any additional nephrotoxins. We will follow closely. Qualifiers: Acute renal failure type: unspecified Qualified Code(s): N17.9 - Acute kidney failure, unspecified (2) Closed intertrochanteric fracture of left femur Current Visit: Yes Status: Acute Qualifiers: Encounter type: initial encounter Qualified Code(s): S72.142A - Displaced intertrochanteric fracture of left femur, initial encounter for closed fracture (3) Vulvar carcinoma Current Visit: Yes Status: Chronic (4) Chronic atrial fibrillation Current Visit: Yes Status: Chronic (5) UTI (urinary tract infection) Current Visit: Yes Status: Acute Qualifiers: Urinary tract infection type: acute cystitis Hematuria presence: without hematuria Qualified Code(s): N30.00 - Acute cystitis without hematuria History of Present Illness - History of Present Illness This is a 80-year-old female admitted on November 23 after falling at a long-term and sustaining a fracture of the left femur. She status post surgical repair on November 26. During this hospital stay she has had issues with chronic A. fib and rapid ventricular rates back on November 30. An echocardiogram at that time showed an EF of 65%. She also has developed right lower lobe pneumonia along with some respiratory failure. She is chronically debilitated. She has a history of vulvar carcinoma and has undergone radiation therapy in the past. She also has a history of GI bleeding. When she was admitted her creatinine was 0.85. The patient does have a history of stage III chronic kidney disease. When she was last seen in August 2015 creatinine was 1.06. During his hospital stay her creatinine is 1.51 yesterday. Today it is 1.40. Recently her Lasix has been discontinued. She does have a history of chronic diastolic heart failure. She also had been on vancomycin that is also been discontinued. Blood cultures have been negative. Urine culture is growing Klebsiella. The patient recently received 1 L of IV fluids. The patient appears somewhat debilitated. She is somnolent but awakens easily. She says she is experiencing a cough without sputum production. She denies any shortness of breath or any other pain. Past Med Surg Social Fam HX - Past Medical History Medical history: arthritis, atrial fibrillation, cancer, CHF (LVEF 30-40%.), COPD (BEAR. Continuous O2 supplementation.), dementia, diabetes, GERD, GI bleed, hyperlipidemia, hypertension, malignancy (Vulvar Ca s/p radiation tx.), osteoporosis, renal disease, thyroid disease, other (anemia of chronic illness.) Psychiatric history: no psych history, other - Past Surgical History Surgical History: cholecystectomy, hysterectomy, GISSEL/BSO, other (Nephrectomy. Colonoscopy. EGD.) - Social History Smoking Status: Former smoker Smokeless Tobacco Status: No Alcohol use: none Drug use: none - Family History Mother Living Status: Hx Family Cardiac Disorders: Yes Hx Family Respiratory Disorders: Yes Hx Family Cancer: Yes Hx Family Medical Disorders: Yes Medications and Allergies Bisacodyl [Dulcolax] 10 mg RC WE 11/23/16 [History] Digoxin [Lanoxin] 0.125 mg PO DAILY 11/23/16 [History] Diltiazem CD (24hr) [Cardizem CD] 180 mg PO DAILY 11/23/16 [History] Docusate [Colace] 100 mg PO BID 11/23/16 [History] Furosemide [Lasix] 80 mg PO DAILY 11/23/16 [History] Insulin Degludec [Tresiba Flextouch U-100] 10 unit SQ DAILY 11/23/16 [History] Insulin Human Regular [HumuLIN R] 2 - 14 unit SQ TID 11/23/16 [History] Ipratropium/Albuterol Neb [Duoneb] 3 ml IH Q6HR PRN 11/23/16 [History] Levothyroxine [Synthroid] 25 mcg PO DAILY 11/23/16 [History] Oxycodone HCl 10 mg PO QID PRN 11/23/16 [History] Pantoprazole Sodium [Protonix] 40 mg PO DAILY 11/23/16 [History] Potassium Chloride [K-Tab ER] 20 meq PO DAILY 11/23/16 [History] Silver Sulfadiazine Cream [Silvadene] 1 appl TP TID 11/23/16 [History] Warfarin [Coumadin] 3 mg PO HS 11/23/16 [History] Allergies nifedipine [From Procardia] Allergy (Verified 07/14/16 10:44) See Comments Review of Systems Constitutional: frequent falls, lethargy, malaise Eyes: bilateral: blurred vision (patient denies), diplopia (patient denies) Nose, mouth and throat: no dizziness, no headache(s) Cardiovascular: dyspnea on exertion, edema, irregular heart rhythm, no chest pain, no palpitations Respiratory: cough, dyspnea on exertion Gastrointestinal: no abdominal pain, no change in bowel habits Genitourinary Female: dysuria Musculoskeletal: no muscle weakness, no numbness Integumentary: no hirsutism, no striae Neurological: as per HPI, weakness Psychiatric: no depression, no difficulty concentrating Exam - Vital Signs Vital signs: Initial Vital Signs Temp Pulse Resp BP Pulse Ox 99.2 F 67 16 105/68 99 11/23/16 16:56 11/23/16 16:56 11/23/16 16:56 11/23/16 16:56 11/23/16 16:56 Vital Signs - Last 8 Hours Temp Pulse Resp BP Pulse Ox 12/07/16 07:06 97.4 F L 108 18 132/90 97 12/07/16 06:00 99 18 127/90 96 12/07/16 04:26 98.1 F 88 20 117/82 100 12/07/16 04:00 89 Intake and Output 12/06/16 12/07/16 12/07/16 23:59 07:59 15:59 Intake Total 0 / 0 1100 / 1100 240 / 240 Output Total 275 / 275 400 / 400 Balance -275 / -275 700 / 700 240 / 240 Intake: IV Fluids 1100 / 1100 0.9 % Sodium Chloride 1, 1000 / 1000 000 ML @ 50 mls/hr IVC . Q20H [facility] Rx#:[id number] Maxipime 2,000 MG In 100 / 100 Dextrose 5% (Minibag+) 100 ML 100 ML @ 200 mls/ hr IVPB Q24H [facility] Rx#: [id number] Oral 0 / 0 0 / 0 240 / 240 Output: Catheter 275 / 275 400 / 400 Other: Meal Dinner Breakfast Percent of Meal Consumed 10% 100% Weight 90.6 kg Blood Glucose* 165 180 Patient Weight 12/07/16 23:59 Weight 90.6 kg - General Appearance Exam: Patient is somewhat somnolent. She awakens easily. Vital signs are stable. She is afebrile. Blood pressure 132/90. secured entrance monitor shows that she is in A. fib. Heart rate ranges from 112-136. Lungs bilateral coarse breath sounds. No wheezing or rales. Heart irregular rate and rhythm. Abdomen shows normal bowel sounds. No bruits masses or organomegaly or tenderness. Patient has left lower extremity edema all the way up to the hip. There is minimal if any right lower extremity swelling. A Boyd catheter is in place. Results - Lab Results 12/07/16 05:09 12/07/16 05:09 Most recent lab results ABG pH 7.42 pH Units (7.32-7.45) 12/02/16 05:50 ABG pCO2 67 mmHg (35-45) H 12/02/16 05:50 ABG pO2 94 mmHg (85-104) 12/02/16 05:50 ABG HCO3 43.5 mEQ/L (21-27) H 12/02/16 05:50 ABG O2 Saturation 97 % (95-98) 12/02/16 05:50 Calcium 9.2 mg/dL (8.6-10.8) 12/07/16 05:09 Phosphorus 2.9 mg/dL (2.3-4.7) 11/24/16 06:13 Magnesium 1.6 mg/dL (1.6-2.6) 11/28/16 14:33 Consult Discharge Plan - Plan Referrals: Vinnie Davis CNP [Advanced Practice Nurse] - 12/11/16 9:00 am Al Gonzales MD [Primary Care Provider] -
[2016-12-07 12:29] LABS: Bilirubin,Urine Negative (Negative); Blood,Urine Trace (Negative); Color,Urine Yellow (Yellow); Glucose,Urine (UA) Normal (Normal); Ketones,Urine Negative (Negative); Leukocyte Esterase,Urine Negative (Negative); Nitrite,Urine Negative (Negative); Protein,Urine 100 mg/dL (Neg-Trace); Specific Gravity,Urine 1.026 (1.010-1.025); Urobilinogen,Urine Normal (Normal)
[2016-12-07 12:31] LABS: Hyaline Casts,Urine Few per lpf (None-Few); Squamous Epithelial Cell,Urine Many per lpf (None-Few); WBC,Urine 15-30 per hpf (0-3)
[2016-12-07 12:32] LABS: Clarity,Urine Hazy (Clear)
[2016-12-07 12:33] LABS: Creatinine,Urine 85 mg/dL
[2016-12-07 12:36] LABS: Sodium, Urine < 20.0 mEq/L
[2016-12-07 12:40] LABS: Uric Acid Crystals,Urine Present
[2016-12-07 12:44] LABS: Bacteria,Urine Few per hpf (None-Few); Yeast,Urine Many per hpf (None Seen)
[2016-12-07 12:54] LABS: Osmolality,Urine 574 mOsm/kg (300-1090)
[2016-12-07] MEDS: Levofloxacin 750 MG/150 ML 750 MG/150 ML BAG IVPB SCH (14:17)
[2016-12-08] MEDS: Levothyroxine 25 MCG TABLET PO SCH (05:34)
[2016-12-08] MEDS: *HR* Enoxaparin 30 MG/0.3 ML SYRINGE SQ SCH (05:34)
[2016-12-08] MEDS: Cefepime HCl 2,000 MG in D5% in Water (Mini-Bag+) 100 ML IVPB SCH (05:35)
[2016-12-08 07:03] LABS: Hematocrit 28.9 % (35.3-44.9); Hemoglobin 9.1 g/dL (11.5-15.4); Immature Platelets 2.7 % (1.1-6.1); Mean Corpuscular HGB Conc 31.5 g/dL (31.6-35.5); Mean Corpuscular Hemoglobin 28.7 pg (28.0-33.3); Mean Corpuscular Volume 91.2 fL (83.0-100.0); Mean Platelet Volume 9.7 fL (9.4-12.4); Red Blood Count 3.17 M/mcL (3.82-4.97); Red Cell Distribution Width 14.2 % (11.5-14.5)
[2016-12-08 07:26] LABS: Albumin 2.3 g/dL (3.5-5.0); Albumin/Globulin Ratio 0.6 (1.1-2.2); Bilirubin,Total 0.4 mg/dL (0.2-1.2); Calcium 9.1 mg/dL (8.6-10.8); Globulin 4.1 g/dL (2.4-3.5); Potassium 4.8 mEq/L (3.5-4.5); Total Protein 6.4 g/dL (6.0-8.3)
[2016-12-08 07:27] LABS: Calcium 9.1 mg/dL (8.6-10.8); Potassium 4.5 mEq/L (3.5-4.5)
--- NOTE | 2016-12-08 08:04 | Nephrology Progress Note ---
Date of Encounter: 12/08/16 Time of Encounter: 08:02 - Assessment and Plan (1) Acute kidney failure, unspecified Current Visit: Yes Status: Acute Patient has sustained acute kidney injury in the setting of vancomycin and respiratory failure and A. fib with RVR. She has underlying stage II to stage III chronic kidney disease. Her serum creatinine seems to have plateaued. She is off the vancomycin and her Lasix has been on hold for several days. I would continue with the same medical regimen and continue to monitor her renal function. Qualifiers: Acute renal failure type: unspecified Qualified Code(s): N17.9 - Acute kidney failure, unspecified (2) Closed intertrochanteric fracture of left femur Current Visit: Yes Status: Acute Qualifiers: Encounter type: initial encounter Qualified Code(s): S72.142A - Displaced intertrochanteric fracture of left femur, initial encounter for closed fracture (3) Vulvar carcinoma Current Visit: Yes Status: Chronic (4) Chronic atrial fibrillation Current Visit: Yes Status: Chronic (5) UTI (urinary tract infection) Current Visit: Yes Status: Acute Qualifiers: Urinary tract infection type: acute cystitis Hematuria presence: without hematuria Qualified Code(s): N30.00 - Acute cystitis without hematuria Subjective Principal diagnosis: Intertrochanteric fracture left hip Interval history: Patient is sitting in a chair. She reports no new complaints. She denies shortness of breath. She says her cough is improving. Renal function is essentially the same today as it was yesterday. Urine output is recorded as 900 mL. A Boyd catheter remains in place. Objective - Vital Signs Vital signs: Vital Signs Temp Pulse Resp BP Pulse Ox 12/08/16 06:49 97.6 F 115 16 143/81 94 12/08/16 03:56 98 F 109 19 143/85 99 12/07/16 23:48 98.4 F 97 18 119/85 96 12/07/16 19:53 97.8 F 99 18 126/90 97 12/07/16 18:00 98.4 F 109 16 113/76 98 12/07/16 15:08 102 18 12/07/16 12:30 98.3 F 106 16 138/74 98 Intake and Output 12/07/16 12/08/16 12/08/16 23:59 07:59 15:59 Intake Total 240 / 240 100 / 100 Output Total 500 / 500 300 / 300 Balance -260 / -260 -200 / -200 Intake: Oral 240 / 240 100 / 100 Output: Urine 250 / 250 Urethral (Boyd) 250 / 250 Catheter 250 / 250 300 / 300 Other: Meal Dinner Percent of Meal Consumed 5% Blood Glucose* 159 222 - General Appearance Exam: Patient is sitting in a chair. She is alert. She is in no acute distress. Lungs exhibit coarse breath sounds. No wheeze or rhonchi. Heart irregular rate and rhythm consistent with atrial fibrillation. Abdomen is benign. There is minimal if any swelling of the right lower extremity. There is some mild swelling of the left lower extremity which is the side that has sustained the acute hip fracture. - Lab 12/08/16 06:10 12/08/16 06:10 Most recent lab results ABG pH 7.42 pH Units (7.32-7.45) 12/02/16 05:50 ABG pCO2 67 mmHg (35-45) H 12/02/16 05:50 ABG pO2 94 mmHg (85-104) 12/02/16 05:50 ABG HCO3 43.5 mEQ/L (21-27) H 12/02/16 05:50 ABG O2 Saturation 97 % (95-98) 12/02/16 05:50 Calcium 9.1 mg/dL (8.6-10.8) 12/08/16 06:10 Phosphorus 2.9 mg/dL (2.3-4.7) 11/24/16 06:13 Magnesium 1.6 mg/dL (1.6-2.6) 11/28/16 14:33 Urine Creatinine 85 mg/dL 12/07/16 12:15 Urine Sodium < 20.0 mEq/L 12/07/16 12:15 - VTE Documentation of Mechanical Device: Graduated compression elastic hosiery Consult Discharge Plan - Plan Referrals: Vinnie Davis CNP [Advanced Practice Nurse] - 12/11/16 9:00 am Al Gonzales MD [Primary Care Provider] -
[2016-12-08] MEDS: Ascorbic Acid 500 MG TABLET PO SCH ×2 (08:33→20:28)
[2016-12-08] MEDS: *HR* OxyCODONE Immed Rel 5 MG TABLET PO SCH ×4 (08:33→21:44)
[2016-12-08] MEDS: Zinc Sulfate 220 MG CAPSULE PO SCH (08:33)
[2016-12-08] MEDS: MethylPREDNISolone 40 MG/ML VIAL IVP SCH ×2 (08:34→20:28)
[2016-12-08] MEDS: Insulin LISPRO 300 UNITS/3 ML VIAL SQ SCH ×4 (08:34→20:28)
[2016-12-08] MEDS: Diltiazem CD (24hr) 120 MG CAPSULE PO SCH (08:34)
[2016-12-08] MEDS: *HR* Digoxin 0.125 MG TABLET PO SCH (08:34)
--- NOTE | 2016-12-08 09:24 | Internal Med Progress Note ---
Date of Encounter: 12/08/16 Time of Encounter: 09:22 - Assessment and plan (1) Acute on chronic diastolic heart failure Current Visit: Yes Status: Acute Assessment and plan: IV Lasix was stopped due to worsening kidney function. We will continue strict I's and O's, telemetry monitoring, fluid restriction, sodium restricted diet. Monitor daily weight. (2) Chronic atrial fibrillation Current Visit: Yes Status: Chronic Assessment and plan: with RVR and diastolic chf cardiology consulted, appreciate their accommodation. I I will start oral diltiazem and check digoxin level stat. 12/07/16: Held digoxin due to bradycardia and renal failure , may resume digoxin as she became tachycardic (110-130s during examination ) continue metoprolol (3) COPD (chronic obstructive pulmonary disease) Current Visit: Yes Status: Chronic Assessment and plan: added steroids Qualifiers: COPD type: unspecified COPD Qualified Code(s): J44.9 - Chronic obstructive pulmonary disease, unspecified (4) Atrial fibrillation with RVR Current Visit: Yes Status: Acute Assessment and plan: She is at very high risk for morbidity mortality and complications due to heart failure and kidney failure and respiratory failure. We will consult palliative care service. - Subjective Interval history: Patient reports mild shortness of breath at rest, improved from yesterday. She says that her lower extremities swelling has improved over the last 3 days with diuretic treatment. - Constitutional Vitals: Temp Pulse Resp BP Pulse Ox 97.6 F 115 16 143/81 94 12/08/16 06:49 12/08/16 06:49 12/08/16 06:49 12/08/16 06:49 12/08/16 06:49 General appearance: Present: A&O X 3, morbidly obese, no acute distress, answers questions appropriately - Eye Eye exam: Present: PERRL, conjuntiva pink, sclera anicteric Pupils: Present: PERRL - Neck Neck exam general surgery: Present: supple, trachea midline. Absent: lymphadenopathy - Respiratory Respiratory exam: Present: decreased breath sounds (at bases), rales (L base crackles). Absent: respiratory distress, wheezes - Cardiovascular Cardiovascular exam: Present: irregular rhythm, +S1, +S2, tachycardia - GI/Abdominal GI/Abdominal exam: Present: normal bowel sounds, soft, no peritoneal signs. Absent: distended, tenderness - Extremities Exam Extremities exam: Present: pedal edema (b/l upper and lower extremity edema), warm, radial pulses palpable and symetrical. Absent: calf tenderness, cyanotic Internal Medicine: Result - Labs CBC & Chem 7: 12/08/16 06:10 12/08/16 06:10 Labs: Short CBC 12/08/16 Range/Units 06:10 WBC 4.6 (4.3-11.1) K/mcL Hgb 9.1 L (11.5-15.4) g/dL Hct 28.9 L (35.3-44.9) % Plt Count 360 (140-400) K/mcL BMP 12/08/16 12/08/16 06:10 06:10 Sodium 136 136 Potassium 4.5 4.8 H Chloride 100 99 Carbon Dioxide 28 27 BUN 44 H 45 H Creatinine 1.35 H 1.41 H Glucose 217 H 218 H Calcium 9.1 9.1 Liver Function 12/08/16 Range/Units 06:10 Total Bilirubin 0.4 (0.2-1.2) mg/dL AST 25 (5-34) Units/L ALT 13 (0-55) Units/L Alkaline Phosphatase 75 (38-126) Units/L Albumin 2.3 L (3.5-5.0) g/dL Urine 12/07/16 Range/Units 12:15 Urine Color Yellow (Yellow) Urine Clarity Hazy A (Clear) Urine pH 6.0 (5.0-8.0) pH Units Ur Specific [place] 1.026 H (1.010-1.025) Urine Protein 100 H (Neg-Trace) mg/dL Urine Glucose (UA) Normal (Normal) mg/dL - ABG Interpretation ABG results: ABG ABG pH 7.42 pH Units (7.32-7.45) 12/02/16 05:50 ABG pCO2 67 mmHg (35-45) H 12/02/16 05:50 ABG pO2 94 mmHg (85-104) 12/02/16 05:50 ABG O2 Saturation 97 % (95-98) 12/02/16 05:50 PT/INR, D-dimer PT 13.0 Seconds (9.4-12.1) H 12/03/16 04:58 - VTE Documentation of Mechanical Device: Graduated compression elastic hosiery Consult Discharge Plan - Plan Referrals: Ryan,Vinnie R, TIP STRETCHER [Advanced Practice Nurse] - 12/11/16 9:00 am Al Gonzales MD [Primary Care Provider] -
[2016-12-08] MEDS: Silver Sulfadiazine 50 GM TUBE TP SCH ×3 (11:44→20:28)
[2016-12-09] MEDS: *HR* Enoxaparin 30 MG/0.3 ML SYRINGE SQ SCH (05:30)
[2016-12-09] MEDS: Levothyroxine 25 MCG TABLET PO SCH (05:30)
[2016-12-09] MEDS: Cefepime HCl 2,000 MG in D5% in Water (Mini-Bag+) 100 ML IVPB SCH (05:31)
[2016-12-09 06:45] LABS: Hematocrit 29.3 % (35.3-44.9); Hemoglobin 9.1 g/dL (11.5-15.4); Immature Granulocytes % 4.9 % (0-4); Lymphocytes # 0.3 K/mcL (0.6-4.6); Lymphocytes % 7.3 %; Mean Corpuscular HGB Conc 31.1 g/dL (31.6-35.5); Mean Corpuscular Volume 90.2 fL (83.0-100.0); Mean Platelet Volume 9.4 fL (9.4-12.4); Monocytes # 0.2 K/mcL (0.0-1.3); Monocytes % 4.2 %; Neutrophils # 3.6 K/mcL (1.6-8.9); Nucleated Red Blood Cells 0.5 /100 WBC (0); Platelet Count 286 K/mcL (140-400); Red Blood Count 3.25 M/mcL (3.82-4.97); Red Cell Distribution Width 14.3 % (11.5-14.5); Segmented Neutrophils % 83.6 %
[2016-12-09 07:00] LABS: Calcium 8.9 mg/dL (8.6-10.8); Magnesium 1.9 mg/dL (1.6-2.6); Potassium 4.5 mEq/L (3.5-4.5)
[2016-12-09] MEDS: *HR* OxyCODONE Immed Rel 5 MG TABLET PO SCH ×4 (07:51→22:11)
[2016-12-09] MEDS: Ascorbic Acid 500 MG TABLET PO SCH ×2 (07:52→22:10)
[2016-12-09] MEDS: Zinc Sulfate 220 MG CAPSULE PO SCH (07:52)
[2016-12-09] MEDS: *HR* Digoxin 0.125 MG TABLET PO SCH (07:52)
[2016-12-09] MEDS: Insulin LISPRO 300 UNITS/3 ML VIAL SQ SCH ×5 (07:55→23:07)
[2016-12-09] MEDS: MethylPREDNISolone 40 MG/ML VIAL IVP SCH ×2 (07:57→22:10)
--- NOTE | 2016-12-09 08:14 | Nephrology Progress Note ---
Date of Encounter: 12/09/16 Time of Encounter: 08:12 - Assessment and Plan (1) Acute kidney failure, unspecified Current Visit: Yes Status: Acute Patient has sustained acute kidney injury in the setting of vancomycin and respiratory failure and A. fib with RVR. The patient's renal function is starting to improve. She appears to have more edema today than she did yesterday. Then resume her Lasix at a dose lower than what she was on previously. We will continue to monitor her renal function. Qualifiers: Acute renal failure type: unspecified Qualified Code(s): N17.9 - Acute kidney failure, unspecified (2) Closed intertrochanteric fracture of left femur Current Visit: Yes Status: Acute Qualifiers: Encounter type: initial encounter Qualified Code(s): S72.142A - Displaced intertrochanteric fracture of left femur, initial encounter for closed fracture (3) Vulvar carcinoma Current Visit: Yes Status: Chronic (4) Chronic atrial fibrillation Current Visit: Yes Status: Chronic (5) UTI (urinary tract infection) Current Visit: Yes Status: Acute Qualifiers: Urinary tract infection type: acute cystitis Hematuria presence: without hematuria Qualified Code(s): N30.00 - Acute cystitis without hematuria Subjective Principal diagnosis: Intertrochanteric fracture left hip Interval history: Patient denies any complaints. She is lying comfortably in bed without any complaints or distress. She says she is not experiencing any shortness of breath. Her renal function is somewhat improved. Objective - Vital Signs Vital signs: Vital Signs Temp Pulse Resp BP Pulse Ox 12/09/16 06:58 97.9 F 110 16 126/74 98 12/09/16 04:14 97.8 F 119 15 121/72 98 12/09/16 00:07 97.7 F 130 18 112/78 99 12/08/16 19:26 97.9 F 17 119/79 100 12/08/16 15:35 97.9 F 115 16 132/73 94 12/08/16 11:13 97.9 F 115 16 103/62 97 Intake and Output 12/08/16 12/09/16 12/09/16 23:59 07:59 15:59 Intake Total 100 / 100 Output Total 450 / 450 Balance -350 / -350 Intake: IV Fluids 100 / 100 Maxipime 2,000 MG In 100 / 100 Dextrose 5% (Minibag+) 100 ML 100 ML @ 200 mls/ hr IVPB Q24H [facility] Rx#: [id number] Output: Urine 450 / 450 Other: Blood Glucose* 225 239 - General Appearance Exam: Patient is alert and oriented. She is in no acute distress. Lungs coarse breath sounds otherwise clear. Heart irregular rate and rhythm consistent with atrial fibrillation. Abdomen is benign. Patient has 2-3+ swelling of the left lower extremity and trace to 1+ swelling of the right lower extremity. Boyd catheter is in place. - Lab 12/09/16 06:11 12/09/16 06:11 Most recent lab results ABG pH 7.42 pH Units (7.32-7.45) 12/02/16 05:50 ABG pCO2 67 mmHg (35-45) H 12/02/16 05:50 ABG pO2 94 mmHg (85-104) 12/02/16 05:50 ABG HCO3 43.5 mEQ/L (21-27) H 12/02/16 05:50 ABG O2 Saturation 97 % (95-98) 12/02/16 05:50 Calcium 8.9 mg/dL (8.6-10.8) 12/09/16 06:11 Phosphorus 2.9 mg/dL (2.3-4.7) 11/24/16 06:13 Magnesium 1.9 mg/dL (1.6-2.6) 12/09/16 06:11 Urine Creatinine 85 mg/dL 12/07/16 12:15 Urine Sodium < 20.0 mEq/L 12/07/16 12:15 - VTE Documentation of Mechanical Device: Venous foot pump, device Consult Discharge Plan - Plan Referrals: Vinnie Davis CNP [Advanced Practice Nurse] - 12/11/16 9:00 am Al Gonzales MD [Primary Care Provider] -
--- NOTE | 2016-12-09 08:39 | Internal Med Progress Note ---
Date of Encounter: 12/09/16 Time of Encounter: 08:37 - Assessment and plan (1) Acute on chronic diastolic heart failure Current Visit: Yes Status: Acute Assessment and plan: Kidney function slowly improving. Resume IV Lasix at a lower dose of 20 mg IV twice a day. We will continue strict I's and O's, telemetry monitoring, fluid restriction, sodium restricted diet. Monitor daily weight. Echocardiogram done during this admission shows normal ejection fraction with undetermined diastolic function. (2) Chronic atrial fibrillation Current Visit: Yes Status: Chronic Assessment and plan: 12/09/16: Digoxin level was checked yesterday and was therapeutic. Continue current dosing. Continue oral diltiazem and increased dosing as tolerated to obtain rate control. with RVR and diastolic chf cardiology consulted, appreciate their accommodation. I will start oral diltiazem and check digoxin level stat. 12/07/16: Held digoxin due to bradycardia and renal failure , may resume digoxin as she became tachycardic (110-130s during examination ) continue metoprolol (3) COPD (chronic obstructive pulmonary disease) Current Visit: Yes Status: Chronic Assessment and plan: added steroids Qualifiers: COPD type: unspecified COPD Qualified Code(s): J44.9 - Chronic obstructive pulmonary disease, unspecified (4) Atrial fibrillation with RVR Current Visit: Yes Status: Acute Assessment and plan: She is at very high risk for morbidity mortality and complications due to heart failure and kidney failure and respiratory failure. We will consult palliative care service. (5) Closed left hip fracture Current Visit: Yes Status: Acute Assessment and plan: Status post intramedullary nailing. Continue physical therapy and occupational therapy. She may need ECF placement. Qualifiers: Encounter type: subsequent encounter Fracture healing: with routine healing Qualified Code(s): S72.002D - Fracture of unspecified part of neck of left femur, subsequent encounter for closed fracture with routine healing (6) Type 2 diabetes mellitus Current Visit: Yes Status: Chronic Assessment and plan: I will continue with insulin sliding scale Qualifiers: Diabetes mellitus complication status: with unspecified complications Diabetes mellitus superintendent marine oil terminal insulin use: unspecified superintendent marine oil terminal insulin use status Qualified Code(s): E11.8 - Type 2 diabetes mellitus with unspecified complications - Subjective Interval history: 12/09/16: Currently she reports 0/10 shortness of breath at rest, without chest pain or palpitations. Lower extremity swelling stable since yesterday. Denies fevers chills cough and hip pain. 12/08/16: Patient reports mild shortness of breath at rest, improved from yesterday. She says that her lower extremities swelling has improved over the last 3 days with diuretic treatment. - Constitutional Vitals: Temp Pulse Resp BP Pulse Ox 97.9 F 110 16 126/74 98 12/09/16 06:58 12/09/16 06:58 12/09/16 06:58 12/09/16 06:58 12/09/16 06:58 General appearance: Present: A&O X 3, morbidly obese, no acute distress, answers questions appropriately - Eye Eye exam: Present: PERRL, conjuntiva pink, sclera anicteric Pupils: Present: PERRL - Respiratory Respiratory exam: Present: decreased breath sounds, tachypnea. Absent: accessory muscle use, rales, rhonchi, wheezes - Cardiovascular Cardiovascular exam: Present: irregular rhythm, +S1, +S2, tachycardia. Absent: diastolic murmur, gallop, rubs, systolic murmur - GI/Abdominal GI/Abdominal exam: Present: normal bowel sounds, soft, no peritoneal signs. Absent: distended, tenderness - Extremities Exam Extremities exam: Present: pedal edema, warm, radial pulses palpable and symetrical. Absent: calf tenderness, cyanotic - Neurological Exam Neurological exam: Present: oriented X3. Absent: facial droop, speech deficit Internal Medicine: Result - Labs CBC & Chem 7: 12/09/16 06:11 12/09/16 06:11 Labs: Short CBC 12/09/16 Range/Units 06:11 WBC 4.3 (4.3-11.1) K/mcL Hgb 9.1 L (11.5-15.4) g/dL Hct 29.3 L (35.3-44.9) % Plt Count 286 (140-400) K/mcL Neutrophils # 3.6 (1.6-8.9) K/mcL BMP 12/09/16 06:11 Sodium 136 Potassium 4.5 Chloride 100 Carbon Dioxide 28 BUN 50 H Creatinine 1.30 H Glucose 241 H Calcium 8.9 - ABG Interpretation ABG results: ABG ABG pH 7.42 pH Units (7.32-7.45) 12/02/16 05:50 ABG pCO2 67 mmHg (35-45) H 12/02/16 05:50 ABG pO2 94 mmHg (85-104) 12/02/16 05:50 ABG O2 Saturation 97 % (95-98) 12/02/16 05:50 PT/INR, D-dimer PT 13.0 Seconds (9.4-12.1) H 12/03/16 04:58 - Impressions Per my review of telemetry strip she is currently in atrial fibrillation with rates ranging from 120 to 130. - VTE Documentation of Mechanical Device: Venous foot pump, device Consult Discharge Plan - Plan Referrals: Vinnie Davis CNP [Advanced Practice Nurse] - 12/11/16 9:00 am Al Gonzales MD [Primary Care Provider] -
[2016-12-09] MEDS: Silver Sulfadiazine 50 GM TUBE TP SCH ×3 (08:48→23:08)
[2016-12-09] MEDS: Furosemide 20 MG/2 ML VIAL IVP SCH ×2 (08:48→22:10)
--- NOTE | 2016-12-09 10:20 | Palliative - Consult Note ---
Date of Encounter: 12/09/16 Time of Encounter: 08:40 - Assessment and Plan (1) Fracture of femur Current Visit: Yes Status: Acute Assessment and plan: Under care of orthopedics, plan per the orthopedic service. Qualifiers: Encounter type: initial encounter Femur location: neck Fracture type: closed Laterality: left Qualified Code(s): S72.002A - Fracture of unspecified part of neck of left femur, initial encounter for closed fracture (2) Vulvar carcinoma Current Visit: Yes Status: Chronic Assessment and plan: Not currently being treated, presumably this is the hospice diagnosis. Patient has been in hospice in the past and can return to hospice after return to [facility]. (3) Chronic atrial fibrillation Current Visit: Yes Status: Chronic Assessment and plan: Under care of hospitalist service at this time continue with hospitalist plan. (4) Goals of care, counseling/discussion Current Visit: Yes Status: Acute Assessment and plan: CODE STATUS is DNR CCA. Believe this is an appropriate CODE STATUS given her current situation and had an being stopped from her hip surgery. She worked as already arranged for the patient return to [facility] on discharge. She can pursue rehabilitation there. She can also resume her care under [facility] hospice when she returns. Since the patient already has a just below with regard to jail, [facility] hospice which she can re-role in hospice now with the hip fracture is taking care of of care will sign off. Please feel free to reconsult if we can help in any way. I discussed this case with the hospital social worker to 3 [address]. this is the plan that she is already got worked out. Palliative-CN HPI - Data of Consult Patient: new to practice Requesting Physician: Juan Luis Hernandez MD Primary Care Provider: Al Gonzales MD - Consult Narrative Palliative Care/Comfort Measures: Palliative care Reason for consult: Goals of care, History of present illness: Ms. Hauser is a 80 year old female Admitted to hospital for a hip fracture. Patient was residing at [facility], under the care of [facility] hospice for vulvar cancer. She had an unwitnessed fall at the jail and had a fracture. Patient was then admitted for the fracture and since then this is been complicated by A. fib with rapid ventricular response. Of care was consulted regarding the frailty and the very high risk of morbidity mortality secondary to her A. fib with RVR. At this time the patient is very pleasantly confused as not have any trouble shortness of breath or pain anywhere. sHe is aware returning to [facility] for rehabilitation. CC: Juan Luis Hernandez MD Hip fracture Past Med Surg Social Fam HX - Past Medical History Medical history: arthritis, atrial fibrillation, cancer, CHF, COPD, dementia, diabetes, GERD, GI bleed, hyperlipidemia, hypertension, malignancy, osteoporosis , renal disease, thyroid disease, other Psychiatric history: anxiety, depression - Past Surgical History Surgical History: cholecystectomy, hysterectomy, GISSEL/BSO, other - Social History Smoking Status: Former smoker Smokeless Tobacco Status: No Alcohol use: none Drug use: none - Family History Mother Living Status: Hx Family Cardiac Disorders: Yes Hx Family Respiratory Disorders: Yes Hx Family Cancer: Yes Hx Family Medical Disorders: Yes Father History Unknown: Yes Adopted: [place]: Federico Hubbard Age: 55 Family Member Ethnicity: Non- Living Status: Hx Family Cardiac Disorders: Yes Hx Family Respiratory Disorders: No Hx Family Cancer: No Hx Family GI Disorders: No Hx Family Genitourinary Disorders: No Hx Family Endocrine Disorder: No Hx Family Musculoskeletal Disorders: No Hx Family Neuromuscular Disorders: No Hx Family Neurologic Disorders: No Hx Family HEENT Disorders: No Hx Family Autoimmune Disorders: No Hx Family Reproductive Disorders: No Hx Family Psychosocial Disorders: No Hx Family Medical Disorders: No Medications and Allergies Bisacodyl [Dulcolax] 10 mg RC WE 11/23/16 [History] Digoxin [Lanoxin] 0.125 mg PO DAILY 11/23/16 [History] Diltiazem CD (24hr) [Cardizem CD] 180 mg PO DAILY 11/23/16 [History] Docusate [Colace] 100 mg PO BID 11/23/16 [History] Furosemide [Lasix] 80 mg PO DAILY 11/23/16 [History] Insulin Degludec [Tresiba Flextouch U-100] 10 unit SQ DAILY 11/23/16 [History] Insulin Human Regular [HumuLIN R] 2 - 14 unit SQ TID 11/23/16 [History] Ipratropium/Albuterol Neb [Duoneb] 3 ml IH Q6HR PRN 11/23/16 [History] Levothyroxine [Synthroid] 25 mcg PO DAILY 11/23/16 [History] Oxycodone HCl 10 mg PO QID PRN 11/23/16 [History] Pantoprazole Sodium [Protonix] 40 mg PO DAILY 11/23/16 [History] Potassium Chloride [K-Tab ER] 20 meq PO DAILY 11/23/16 [History] Silver Sulfadiazine Cream [Silvadene] 1 appl TP TID 11/23/16 [History] Warfarin [Coumadin] 3 mg PO HS 11/23/16 [History] Allergies nifedipine [From Procardia] Allergy (Verified 07/14/16 10:44) See Comments ROS unobtainable: due to mental status (She is very pleasantly confused and not really able to give a review of systems. What follows is her best) - Constitutional Constitutional ROS PAL: no decreased appetite, no anorexia - EENT Eyes: no discharge, no pain Ears: no ear discharge, no ear pain Ears, nose, mouth, throat: no facial pain, no hoarseness, no neck mass - Cardiovascular Cardiovascular ROS: no chest pain, no chest pain at rest, no chest pain with activity - Respiratory Respiratory: no cough, no dyspnea - Gastrointestinal Gastrointestinal: no constipation, no diarrhea, no nausea, no vomiting - Genitourinary Palliative ROS female: no urinary frequency, no urinary hesitancy, no urinary incontinence - Musculoskeletal Musculoskeletal ROS IM: no arthralgias, no back pain - Integumentary ROS Integumentary: no rash, no skin pain - Neurological Neurological ROS: frequent falls (Recent fall) - Psychiatric Psychiatric general PM: no difficulty concentrating, no homicidal ideation, no suicidal ideation - Endocrine Endocrine IM: as per HPI Palliative Care-Exam - Constitutional Vitals: Temp Pulse Resp BP Pulse Ox 97.9 F 117 18 148/77 98 12/09/16 06:58 12/09/16 10:10 12/09/16 10:10 12/09/16 10:10 12/09/16 06:58 General appearance: Present: no acute distress - Head Head Exam: Present: atraumatic, normal inspection - Eye Eye exam: Present: EOMI, normal appearance, PERRL - ENT ENT exam: Present: mucous membranes moist - Neck Neck exam: Present: normal inspection - Respiratory Respiratory exam: Present: decreased breath sounds - Cardiovascular Cardiovascular exam: Present: irregular rhythm - GI/Abdominal Exam GI/Abdominal exam: Present: normal bowel sounds, soft. Absent: tenderness - Extremities Exam Extremities exam: Present: pedal edema - Neurological Exam Neurological exam: Present: alert. Absent: oriented X3 - Psychiatric Psychiatric exam: Absent: agitated, anxious - Skin Skin exam: Present: dry, warm Internal Medicine - CN: Reslt - Labs CBC & Chem 7: 12/09/16 06:11 12/09/16 06:11 Labs: Short CBC 12/09/16 Range/Units 06:11 WBC 4.3 (4.3-11.1) K/mcL Hgb 9.1 L (11.5-15.4) g/dL Hct 29.3 L (35.3-44.9) % Plt Count 286 (140-400) K/mcL Neutrophils # 3.6 (1.6-8.9) K/mcL BMP 12/09/16 06:11 Sodium 136 Potassium 4.5 Chloride 100 Carbon Dioxide 28 BUN 50 H Creatinine 1.30 H Glucose 241 H Calcium 8.9 - ABG Interpretation ABG results: ABG ABG pH 7.42 pH Units (7.32-7.45) 12/02/16 05:50 ABG pCO2 67 mmHg (35-45) H 12/02/16 05:50 ABG pO2 94 mmHg (85-104) 12/02/16 05:50 ABG O2 Saturation 97 % (95-98) 12/02/16 05:50 PT/INR, D-dimer PT 13.0 Seconds (9.4-12.1) H 12/03/16 04:58 Consult Discharge Plan - Plan Referrals: Vinnie Davis CNP [Advanced Practice Nurse] - 12/11/16 9:00 am Al Gonzales MD [Primary Care Provider] - Palliative Quality Palliative Quality: Screen for Code Status: Yes, Screen for Goals of Care: Yes, Screen for Pain: Yes, If Pain Regimen Started, Initiate Bowel Regimen: NA, Screen for Nausea/Vomitting: Yes
[2016-12-10] MEDS: Cefepime HCl 2,000 MG in D5% in Water (Mini-Bag+) 100 ML IVPB SCH (04:56)
[2016-12-10] MEDS: *HR* Enoxaparin 30 MG/0.3 ML SYRINGE SQ SCH (06:04)
[2016-12-10] MEDS: Levothyroxine 25 MCG TABLET PO SCH (06:05)
[2016-12-10] MEDS: Silver Sulfadiazine 50 GM TUBE TP SCH ×3 (07:51→23:20)
[2016-12-10] MEDS: MethylPREDNISolone 40 MG/ML VIAL IVP SCH ×2 (07:51→21:02)
[2016-12-10] MEDS: Ascorbic Acid 500 MG TABLET PO SCH ×2 (07:51→20:59)
[2016-12-10] MEDS: *HR* OxyCODONE Immed Rel 5 MG TABLET PO SCH ×4 (07:51→20:59)
[2016-12-10] MEDS: Insulin LISPRO 300 UNITS/3 ML VIAL SQ SCH ×4 (07:51→21:00)
[2016-12-10] MEDS: Furosemide 20 MG/2 ML VIAL IVP SCH ×2 (07:51→21:02)
[2016-12-10] MEDS: *HR* Digoxin 0.125 MG TABLET PO SCH (07:52)
[2016-12-10] MEDS: Zinc Sulfate 220 MG CAPSULE PO SCH (07:52)
--- NOTE | 2016-12-10 08:04 | Nephrology Progress Note ---
Date of Encounter: 12/10/16 Time of Encounter: 08:02 - Assessment and Plan (1) Acute kidney failure, unspecified Current Visit: Yes Status: Acute Patient has sustained acute kidney injury in the setting of vancomycin and respiratory failure and A. fib with RVR. As of yesterday the patient's renal function had been improving. Today's lab is pending. She was started on Lasix yesterday because of increasing lower extremity swelling. I would suggest continuing with the same medical regimen. We will order lab work today and continue to monitor her renal function. Qualifiers: Acute renal failure type: unspecified Qualified Code(s): N17.9 - Acute kidney failure, unspecified (2) Closed intertrochanteric fracture of left femur Current Visit: Yes Status: Acute Qualifiers: Encounter type: initial encounter Qualified Code(s): S72.142A - Displaced intertrochanteric fracture of left femur, initial encounter for closed fracture (3) Vulvar carcinoma Current Visit: Yes Status: Chronic (4) Chronic atrial fibrillation Current Visit: Yes Status: Chronic (5) UTI (urinary tract infection) Current Visit: Yes Status: Acute Qualifiers: Urinary tract infection type: acute cystitis Hematuria presence: without hematuria Qualified Code(s): N30.00 - Acute cystitis without hematuria Subjective Principal diagnosis: Intertrochanteric fracture left hip Interval history: The patient denies any complaints. She says she is not short of breath. She denies any hip pain. Today's lab is pending. Urine output is recorded as 850 mL. She was started on Lasix yesterday because of lower extremity swelling. Objective - Vital Signs Vital signs: Vital Signs Temp Pulse Resp BP Pulse Ox 12/10/16 07:18 98.0 F 120 18 121/84 99 12/10/16 04:14 97.5 F L 102 17 138/81 95 12/09/16 20:00 98.2 F 110 18 109/69 97 12/09/16 15:40 97.8 F 85 18 133/80 98 12/09/16 10:43 97.8 F 119 16 149/83 95 12/09/16 10:10 117 18 148/77 12/09/16 09:40 103/71 12/09/16 08:45 16 Intake and Output 12/09/16 12/10/16 12/10/16 23:59 07:59 15:59 Intake Total 300 / 300 Output Total 1300 / 1300 Balance -1000 / -1000 Intake: IV Fluids 100 / 100 Maxipime 2,000 MG In 100 / 100 Dextrose 5% (Minibag+) 100 ML 100 ML @ 200 mls/ hr IVPB Q24H [facility] Rx#: [id number] Oral 200 / 200 Output: Urine 650 / 650 Urethral (Boyd) 650 / 650 Catheter 650 / 650 Other: Blood Glucose* 301 187 - General Appearance Exam: Patient is alert. She is in no acute distress. Lung sounds otherwise clear. Heart irregular rate and rhythm consistent with atrial fibrillation. Abdomen is benign. Lower extremities show 2+ lower extremity swelling. A Boyd catheter is in place. - Lab 12/09/16 06:11 12/09/16 06:11 Most recent lab results ABG pH 7.42 pH Units (7.32-7.45) 12/02/16 05:50 ABG pCO2 67 mmHg (35-45) H 12/02/16 05:50 ABG pO2 94 mmHg (85-104) 12/02/16 05:50 ABG HCO3 43.5 mEQ/L (21-27) H 12/02/16 05:50 ABG O2 Saturation 97 % (95-98) 12/02/16 05:50 Calcium 8.9 mg/dL (8.6-10.8) 12/09/16 06:11 Phosphorus 2.9 mg/dL (2.3-4.7) 11/24/16 06:13 Magnesium 1.9 mg/dL (1.6-2.6) 12/09/16 06:11 Urine Creatinine 85 mg/dL 12/07/16 12:15 Urine Sodium < 20.0 mEq/L 12/07/16 12:15 - VTE Documentation of Mechanical Device: Venous foot pump, device Consult Discharge Plan - Plan Referrals: Vinnie Davis CNP [Advanced Practice Nurse] - 12/11/16 9:00 am Al Gonzales MD [Primary Care Provider] -
--- NOTE | 2016-12-10 09:48 | Internal Med Progress Note ---
Date of Encounter: 12/10/16 Time of Encounter: 09:47 - Assessment and plan (1) Acute on chronic diastolic heart failure Current Visit: Yes Status: Acute Assessment and plan: Kidney function slowly improving. Continue IV Lasix at a lower dose of 20 mg IV twice a day. We will continue strict I's and O's, telemetry monitoring, fluid restriction, sodium restricted diet. Monitor daily weight. Echocardiogram done during this admission shows normal ejection fraction with undetermined diastolic function. (2) Chronic atrial fibrillation Current Visit: Yes Status: Chronic Assessment and plan: 12/09/16: Digoxin level was checked yesterday and was therapeutic. Continue current dosing. Continue oral diltiazem and increased dosing as tolerated to obtain rate control. with RVR and diastolic chf cardiology consulted, appreciate their accommodation. I will start oral diltiazem and check digoxin level stat. 12/07/16: Held digoxin due to bradycardia and renal failure , may resume digoxin as she became tachycardic (110-130s during examination ) continue metoprolol (3) COPD (chronic obstructive pulmonary disease) Current Visit: Yes Status: Chronic Assessment and plan: Continue with IV steroids. Slow taper. Qualifiers: COPD type: unspecified COPD Qualified Code(s): J44.9 - Chronic obstructive pulmonary disease, unspecified (4) Atrial fibrillation with RVR Current Visit: Yes Status: Acute Assessment and plan: She is at very high risk for morbidity mortality and complications due to heart failure and kidney failure and respiratory failure. Continue with diltiazem. Monitor on telemetry.. (5) Closed left hip fracture Current Visit: Yes Status: Acute Assessment and plan: Status post intramedullary nailing. Continue physical therapy and occupational therapy. She may need ECF placement. Qualifiers: Encounter type: subsequent encounter Fracture healing: with routine healing Qualified Code(s): S72.002D - Fracture of unspecified part of neck of left femur, subsequent encounter for closed fracture with routine healing (6) Type 2 diabetes mellitus Current Visit: Yes Status: Chronic Assessment and plan: I will continue with insulin sliding scale Qualifiers: Diabetes mellitus complication status: with unspecified complications Diabetes mellitus buttermaker insulin use: unspecified buttermaker insulin use status Qualified Code(s): E11.8 - Type 2 diabetes mellitus with unspecified complications - Subjective Interval history: 12/10/2016: Patient denies shortness of breath progressed, denies chest pain. Lower extremity edema has improved since yesterday. She has fairly weak and debilitated. 12/09/16: Currently she reports 0/10 shortness of breath at rest, without chest pain or palpitations. Lower extremity swelling stable since yesterday. Denies fevers chills cough and hip pain. 12/08/16: Patient reports mild shortness of breath at rest, improved from yesterday. She says that her lower extremities swelling has improved over the last 3 days with diuretic treatment. - Constitutional Vitals: Temp Pulse Resp BP Pulse Ox 98.0 F 120 18 121/84 99 12/10/16 07:18 12/10/16 07:18 12/10/16 07:18 12/10/16 07:18 12/10/16 07:18 General appearance: Present: A&O X 3, morbidly obese, no acute distress, answers questions appropriately - Eye Eye exam: Present: PERRL, conjuntiva pink, sclera anicteric Pupils: Present: PERRL - Respiratory Respiratory exam: Present: decreased breath sounds, CTAB. Absent: accessory muscle use, rales, rhonchi, wheezes - Cardiovascular Cardiovascular exam: Present: irregular rhythm, +S1, +S2, tachycardia. Absent: diastolic murmur, gallop, rubs, systolic murmur - GI/Abdominal GI/Abdominal exam: Present: normal bowel sounds, soft, no peritoneal signs. Absent: distended, tenderness - Extremities Exam Extremities exam: Present: pedal edema, warm, radial pulses palpable and symetrical. Absent: calf tenderness, cyanotic Internal Medicine: Result - Labs CBC & Chem 7: 12/09/16 06:11 12/10/16 08:24 - ABG Interpretation ABG results: ABG ABG pH 7.42 pH Units (7.32-7.45) 12/02/16 05:50 ABG pCO2 67 mmHg (35-45) H 12/02/16 05:50 ABG pO2 94 mmHg (85-104) 12/02/16 05:50 ABG O2 Saturation 97 % (95-98) 12/02/16 05:50 PT/INR, D-dimer PT 13.0 Seconds (9.4-12.1) H 12/03/16 04:58 - VTE Documentation of Mechanical Device: Venous foot pump, device Consult Discharge Plan - Plan Referrals: Vinnie Davis CNP [Advanced Practice Nurse] - 12/11/16 9:00 am Al Gonzales MD [Primary Care Provider] -
[2016-12-10 10:08] LABS: Albumin 2.5 g/dL (3.5-5.0); Albumin/Globulin Ratio 0.7 (1.1-2.2); Bilirubin,Total 0.5 mg/dL (0.2-1.2); Calcium 9.2 mg/dL (8.6-10.8); Globulin 3.8 g/dL (2.4-3.5); Potassium 4.6 mEq/L (3.5-4.5); Total Protein 6.3 g/dL (6.0-8.3)
[2016-12-11 05:47] LABS: Hematocrit 31.5 % (35.3-44.9); Hemoglobin 9.9 g/dL (11.5-15.4); Immature Granulocytes % 1.8 % (0-4); Lymphocytes # 0.6 K/mcL (0.6-4.6); Lymphocytes % 11.4 %; Mean Corpuscular HGB Conc 31.4 g/dL (31.6-35.5); Mean Corpuscular Hemoglobin 27.4 pg (28.0-33.3); Mean Corpuscular Volume 87.3 fL (83.0-100.0); Mean Platelet Volume 9.6 fL (9.4-12.4); Monocytes # 0.2 K/mcL (0.0-1.3); Monocytes % 3.3 %; Neutrophils # 4.6 K/mcL (1.6-8.9); Nucleated Red Blood Cells 0.4 /100 WBC (0); Platelet Count 280 K/mcL (140-400); Red Blood Count 3.61 M/mcL (3.82-4.97); Red Cell Distribution Width 14.6 % (11.5-14.5); Segmented Neutrophils % 83.5 %
[2016-12-11 06:11] LABS: Albumin 2.4 g/dL (3.5-5.0); Albumin/Globulin Ratio 0.6 (1.1-2.2); Bilirubin,Total 0.5 mg/dL (0.2-1.2); Calcium 8.9 mg/dL (8.6-10.8); Globulin 3.7 g/dL (2.4-3.5); Potassium 4.8 mEq/L (3.5-4.5); Total Protein 6.1 g/dL (6.0-8.3)
[2016-12-11] MEDS: Levothyroxine 25 MCG TABLET PO SCH (06:17)
[2016-12-11] MEDS: *HR* Enoxaparin 30 MG/0.3 ML SYRINGE SQ SCH (06:17)
[2016-12-11] MEDS: Furosemide 20 MG/2 ML VIAL IVP SCH (08:08)
[2016-12-11] MEDS: Zinc Sulfate 220 MG CAPSULE PO SCH (08:08)
[2016-12-11] MEDS: MethylPREDNISolone 40 MG/ML VIAL IVP SCH (08:08)
[2016-12-11] MEDS: *HR* Digoxin 0.125 MG TABLET PO SCH (08:08)
[2016-12-11] MEDS: Ascorbic Acid 500 MG TABLET PO SCH (08:08)
[2016-12-11] MEDS: Silver Sulfadiazine 50 GM TUBE TP SCH (08:09)
[2016-12-11] MEDS: Insulin LISPRO 300 UNITS/3 ML VIAL SQ SCH ×2 (08:09→12:07)
[2016-12-11] MEDS: *HR* OxyCODONE Immed Rel 5 MG TABLET PO SCH ×2 (08:09→12:07)
--- NOTE | 2016-12-11 09:45 | Nephrology Progress Note ---
Date of Encounter: 12/11/16 Time of Encounter: 09:30 - Assessment and Plan (1) CKD (chronic kidney disease) stage 3, GFR 30-59 ml/min Current Visit: Yes Status: Acute AUREA superimposed on underlying mild stage II to stage III chronic kidney disease. Renal fct stable. Creat 1.43. Urine output 1425 cc. Continue to monitor. Subjective Principal diagnosis: Intertrochanteric fracture left hip Interval history: Sitting up in bed, denies discomfort. No new complaints. Objective - Vital Signs Vital signs: Vital Signs Temp Pulse Resp BP Pulse Ox 12/11/16 06:54 98.4 F 115 18 127/75 98 12/11/16 04:00 97.7 F 91 16 120/78 98 12/11/16 00:00 97.8 F 60 16 136/80 100 12/10/16 20:00 97.7 F 110 17 123/73 95 12/10/16 14:34 98.3 F 116 18 98/65 98 12/10/16 11:08 98.0 F 105 18 112/88 99 Intake and Output 12/10/16 12/11/16 12/11/16 23:59 07:59 15:59 Intake Total 350 / 350 100 / 100 Output Total 225 / 225 750 / 750 Balance 125 / 125 -650 / -650 Intake: Oral 350 / 350 100 / 100 Output: Catheter 225 / 225 750 / 750 Other: Blood Glucose* 285 282 - General Appearance General appearance: Present: well-developed, well-nourished, appears started age , obese EENT: Present: mucous membranes moist Neck: Present: no JVD Respiratory: Present: clear Cardiology: Present: edema, irregular rhythm Additional Comments: 1+ pitting, knees down Gastrointestinal: Present: normoactive bowel sounds, no tenderness Integumentary: Present: warm and dry Neurologic: Present: alert and oriented x3 Psychiatric: Present: mood/affect appropriate, cooperative - Lab 12/11/16 05:33 12/11/16 05:33 Most recent lab results ABG pH 7.42 pH Units (7.32-7.45) 12/02/16 05:50 ABG pCO2 67 mmHg (35-45) H 12/02/16 05:50 ABG pO2 94 mmHg (85-104) 12/02/16 05:50 ABG HCO3 43.5 mEQ/L (21-27) H 12/02/16 05:50 ABG O2 Saturation 97 % (95-98) 12/02/16 05:50 Calcium 8.9 mg/dL (8.6-10.8) 12/11/16 05:33 Phosphorus 2.9 mg/dL (2.3-4.7) 11/24/16 06:13 Magnesium 2.0 mg/dL (1.6-2.6) 12/10/16 08:24 Urine Creatinine 85 mg/dL 12/07/16 12:15 Urine Sodium < 20.0 mEq/L 12/07/16 12:15 - VTE Documentation of Mechanical Device: Venous foot pump, device Consult Discharge Plan - Plan Referrals: Vinnie Davis CNP [Advanced Practice Nurse] - 12/11/16 9:00 am Al Gonzales MD [Primary Care Provider] -
[2016-12-11 11:06] VITALS: BP 113/71
--- NOTE | 2016-12-11 11:11 | Discharge Summary ---
Date of Encounter: 12/11/16 Time of Encounter: 11:02 - Discharge Diagnosis (1) Acute on chronic diastolic heart failure Priority: Secondary Status: Acute (2) Chronic atrial fibrillation Priority: Secondary Status: Chronic (3) COPD (chronic obstructive pulmonary disease) Priority: Secondary Status: Chronic Qualifiers: COPD type: unspecified COPD Qualified Code(s): J44.9 - Chronic obstructive pulmonary disease, unspecified (4) Atrial fibrillation with RVR Priority: Secondary Status: Acute (5) Closed left hip fracture Priority: Primary Status: Acute Qualifiers: Encounter type: subsequent encounter Fracture healing: with routine healing Qualified Code(s): S72.002D - Fracture of unspecified part of neck of left femur, subsequent encounter for closed fracture with routine healing (6) Type 2 diabetes mellitus Priority: Secondary Status: Chronic Qualifiers: Diabetes mellitus complication status: with unspecified complications Diabetes mellitus mcc insulin use: unspecified mcc insulin use status Qualified Code(s): E11.8 - Type 2 diabetes mellitus with unspecified complications - Discharge Medications Prescriptions: Furosemide [Lasix] 40 mg PO BID #60 tab Oxycodone HCl 10 mg PO QID PRN #60 tablet PRN Reason: Pain PredniSONE 40 mg PO DAILY #7 tablet Home Medications: Bisacodyl [Dulcolax] 10 mg RC WE 11/23/16 [History] Docusate [Colace] 100 mg PO BID 11/23/16 [History] Insulin Degludec [Tresiba Flextouch U-100] 10 unit SQ DAILY 11/23/16 [History] Insulin Human Regular [HumuLIN R] 2 - 14 unit SQ TID 11/23/16 [History] Ipratropium/Albuterol Neb [Duoneb] 3 ml IH Q6HR PRN 11/23/16 [History] Levothyroxine [Synthroid] 25 mcg PO DAILY 11/23/16 [History] Pantoprazole Sodium [Protonix] 40 mg PO DAILY 11/23/16 [History] Potassium Chloride [K-Tab ER] 20 meq PO DAILY 11/23/16 [History] Silver Sulfadiazine Cream [Silvadene] 1 appl TP TID 11/23/16 [History] Diltiazem [Cardizem] 60 mg PO Q6HR tablet 12/11/16 [Rx] Enoxaparin [Lovenox] 30 mg SQ 0600 #14 syringe 12/11/16 [Rx] Furosemide [Lasix] 40 mg PO BID #60 tab 12/11/16 [Rx] Metoprolol [Lopressor] 100 mg PO BID tablet 12/11/16 [Rx] Oxycodone HCl 10 mg PO QID PRN #60 tablet 12/11/16 [Rx] PredniSONE 40 mg PO DAILY #7 tablet 12/11/16 [Rx] Allergies/Adverse Reactions: Allergies nifedipine [From Procardia] Allergy (Verified 07/14/16 10:44) See Comments Date of admission: 11/26/16 08:11 Primary care physician: Al Gonzales MD Consults: 11/26/16 22:50 Consult to Occupational Therapy [CONS] Routine Comment: Evaluate, develop and implement POC Consult to Physical Therapy [CONS] Routine Comment: Evaluate, develop and implement POC WBAT LLE Consult to Legal Recruiter [CONS] Routine Reason for SW Consult: D/C Planning 11/29/16 15:09 Consult to Physician [CONS] Routine Consulting Provider: Rajinder Velázquez Reason for Consult: chf and uncontrolled atrial fib Time Notified: 15:09 Call Completed: No 12/07/16 09:54 Consult to Nephrology [CONS] Routine Consulting Provider: Tay Mi Reason for Consult: arf Call Completed: Yes 12/08/16 19:15 Consult to Palliative Care [CONS] Routine Comment: Consulting Provider: Palliative Care Shannon - Patient Status Disposition: Transfer SNF Condition: Fair Functional capacity at discharge: wheelchair bound Overall status at discharge: patient is not back to baseline - Discharge Instructions Follow Up With: Vinnie Davis MANAGER INVENTORY CONTROL [Advanced Practice Nurse] - 12/11/16 9:00 am Al Gonzales MD [Primary Care Provider] - - Diet and Activity Activity: as per physical therapy Diet: diabetic diet, low fat, low cholesterol, low salt diet Hospital course: Ms. Hauser is a 80 year old female with multiple medical comorbidities including and her carcinoma status post chemotherapy and radiation who had suffered a fall at the [facility] about 48 hours prior to presentation to the hospital. During this admission and she was diagnosed with acute intertrochanteric fracture left proximal femur. She was admitted to the medical service. Orthopedic service was consulted and after extensive discussion with the patient's family and evaluating the risks and the benefits of a surgical intervention she underwent Intramedullary nailing left hip under fluoroscopic guidance. She tolerated the procedure well. Thereafter she had a long and complicated medical course due to her multiple chronic medical conditions. The course was complicated with atrial fibrillation with rapid ventricular response and cardiology was consulted. She was started on Cardizem drip. She was started on metoprolol. This has improved. Currently her heart rate is controlled and she will be discharged back to the [facility] on metoprolol and short acting diltiazem. If her heart rate continues to be well- controlled diltiazem can be converted in the [facility] to the long acting form in 1-2 weeks. On day 7 of hospitalization she was hypoxic and tachycardic and was diagnosed with healthcare associated pneumonia and received treatment with IV cefepime. She completed antibiotic treatment and her oxygen requirements are currently back to baseline. Nephrology service was consulted for worsening chronic kidney disease secondary to diuresis. Lasix was placed on hold for 2 days while the kidney function was allowed to recover and then was restarted 3 days ago. She tolerated this well. Lasix will be now converted to oral. She has been able to participate in physical therapy and is currently medically stable for discharge back to the [facility]. Palliative care service was consulted and the plan is to re-enroll her in hospice once at the [facility]. - Time Spent with Patient Total time spent providing and/or coordinating discharge services: - Constitutional Vitals: Temp Pulse Resp BP Pulse Ox 98.4 F 115 18 127/75 98 12/11/16 06:54 12/11/16 06:54 12/11/16 06:54 12/11/16 06:54 12/11/16 06:54 General appearance: Present: A&O X 3, morbidly obese, no acute distress, answers questions appropriately - Respiratory Respiratory exam: Present: decreased breath sounds, CTAB. Absent: accessory muscle use, rales, rhonchi, wheezes - Cardiovascular Cardiovascular exam: Present: irregular rhythm, +S1, +S2. Absent: diastolic murmur, gallop, rubs, systolic murmur - GI/Abdominal GI/Abdominal exam: Present: normal bowel sounds, soft, no peritoneal signs. Absent: distended, tenderness - Extremities Exam Extremities exam: Present: pedal edema, warm, radial pulses palpable and symetrical. Absent: calf tenderness, cyanotic - VTE Documentation of Mechanical Device: Venous foot pump, device
--- NOTE | 2016-12-11 11:27 | Physician Discharge Referral ---
ExtendedCare Referral Info Transfer To: SNF Provider in Charge after Transfer: PCP Institutional Level of Care: Skilled - Diagnosis (1) Acute on chronic diastolic heart failure Status: Acute (2) Chronic atrial fibrillation Status: Chronic (3) COPD (chronic obstructive pulmonary disease) Status: Chronic (4) Atrial fibrillation with RVR Status: Acute (5) Closed left hip fracture Status: Acute (6) Type 2 diabetes mellitus Status: Chronic - Transfer Medications Prescriptions: Furosemide [Lasix] 40 mg PO BID #60 tab Oxycodone HCl 10 mg PO QID PRN #60 tablet PRN Reason: Pain PredniSONE 40 mg PO DAILY #7 tablet Home Medications: Bisacodyl [Dulcolax] 10 mg RC WE 11/23/16 [History] Docusate [Colace] 100 mg PO BID 11/23/16 [History] Insulin Degludec [Tresiba Flextouch U-100] 10 unit SQ DAILY 11/23/16 [History] Insulin Human Regular [HumuLIN R] 2 - 14 unit SQ TID 11/23/16 [History] Ipratropium/Albuterol Neb [Duoneb] 3 ml IH Q6HR PRN 11/23/16 [History] Levothyroxine [Synthroid] 25 mcg PO DAILY 11/23/16 [History] Pantoprazole Sodium [Protonix] 40 mg PO DAILY 11/23/16 [History] Potassium Chloride [K-Tab ER] 20 meq PO DAILY 11/23/16 [History] Silver Sulfadiazine Cream [Silvadene] 1 appl TP TID 11/23/16 [History] Diltiazem [Cardizem] 60 mg PO Q6HR tablet 12/11/16 [Rx] Enoxaparin [Lovenox] 30 mg SQ 0600 #14 syringe 12/11/16 [Rx] Furosemide [Lasix] 40 mg PO BID #60 tab 12/11/16 [Rx] Metoprolol [Lopressor] 100 mg PO BID tablet 12/11/16 [Rx] Oxycodone HCl 10 mg PO QID PRN #60 tablet 12/11/16 [Rx] PredniSONE 40 mg PO DAILY #7 tablet 12/11/16 [Rx] Allergies/Adverse Reactions: Allergies nifedipine [From Procardia] Allergy (Verified 07/14/16 10:44) See Comments - Respiratory Orders Oxygen / L per min Smoking Cessation: Smoking cessation has been advised. For more information, call the [place] Tobacco Quit Line at 6-638-ZONF-NOW. - Advance Directives Living Will: Yes Power of Real Estate Administrative Assistant: Yes Code Status: DNR-Arrest/Don't Intubate - Mobility Orders Chair - Rehabiliation Orders Rehab Potential: Fair Rehab Orders: Evaluation for Physical Therapy, Evaluation for Occupational Therapy - Treatments Skin tear care topically daily PRN per policy - Diet Orders No Added Salt (KOFI), No Concentrated Sweets, Cardiac CERTIFICATION: I certify that the transfer of the above named patient to an Extended Care Facility is necessary for the continuing treatment of the diagnosis listed. The above information is true and accurate reflection of patient's current condition. Confidential - Redisclosure prohibited without a patient's written consent.
== END 2016-12-11 14:00 | DRG 956 ==
LOC: EMEROO 16:53 → 3NENU 16:53 → SUATTDRO 11-26 08:11 → 2NNU 12-01 17:05 → 3NENU 12-08 01:17
PROVIDERS: ADMIT Internal Medicine; ATTEND Internal Medicine